=== PATIENT | female | born 1940 | race Caucasian/White ===

== ENCOUNTER 2017-09-19 15:02 | Inpatient (IN) ==
[2017-09-19] MEDS ORDERED: 0.9 % SODIUM CHLORIDE 1,000 ML IV ONE (15:20)
--- NOTE | 2017-09-19 16:06 | XRay Report ---
CLINICAL INFORMATION: Fall. Right knee pain TECHNIQUE: Portable AP and lateral right knee COMPARISON: None. FINDINGS: No right knee fracture. Severe degenerative joint disease. Severe narrowing of the patellofemoral joint. Severe narrowing of the lateral femoral tibial joint space. Moderate narrowing of the medial femoral tibial joint space. No plain film evidence for significant joint effusion. There is mild chondrocalcinosis. No lytic lesion IMPRESSION: 1. Degenerative joint disease 2. No acute abnormality Interpreted and Authenticated by: Tristian Fernández 09/19/17
--- NOTE | 2017-09-19 16:08 | XRay Report ---
INDICATION: Hip and knee pain TECHNIQUE: AP chest x-ray,portable semierect COMPARISON: 05/30/2015, 05/11/2015, 02/04/2015 FINDINGS:Marked cardiomegaly. Findings are unchanged. Pulmonary vascularity is prominent. There is bronchial wall thickening and probable subtle septal lines. Appearance is consistent with congestive heart failure and interstitial pulmonary edema. No focal parenchymal infiltrate. No consolidation. No definite pleural fluid IMPRESSION: 1. Marked cardiomegaly, unchanged 2. Prominent pulmonary vascularity and probable interstitial edema. Appearance is consistent with congestive heart failure Interpreted and Authenticated by: Tristian Fernández 09/19/17
[2017-09-19 16:55] LABS: Basophils # (Auto) 0 K/mcL (0.0-0.3); Basophils % (Auto) 0 % (0.0-2.0); Eosinophils # (Auto) 0 K/mcL (0.0-0.7); Eosinophils % (Auto) 0.1 % (0.0-7.0); Granulocytes % (Auto) 92.7 % (38.0-78.0); Lymphocytes # (Auto) 0.6 K/mcL (1.5-4.8); Mean Cell Volume 93.5 fL (80.0-100.0); Mean Corpuscular Hemoglobin 30.9 pg (26.0-34.0); Monocytes # (Auto) 0.4 K/mcL (0.1-0.9); Monocytes % (Auto) 3.2 % (1.0-12.0); Platelet Count 159 K/mcL (140-440); RBC 4.05 M/mcL (4.00-5.20); Red Cell Distribution Width 12.8 % (11.5-14.5)
[2017-09-19 17:15] LABS: ALT/SGPT 20 U/l (0-40); Albumin 3.6 gm/dL (3.2-5.2); Albumin/Globulin Ratio 1.2 (1.0-2.3); Alkaline Phosphatase 62 U/L (39-117); Blood Urea Nitrogen 69 mg/dl (8-23)
[2017-09-19 17:47] LABS: Appearance,Urine CLEAR; Bacteria,Urine 0 /hpf (0); Bilirubin,Urine NEG (NEG); Color,Urine YELLOW; Glucose,Urine (UA) NEGATIVE (NEG); Leukocyte Esterase,Urine NEG /uL (NEG); Mucus,Urine FEW /hpf (0); Nitrate,Urine NEG (NEG); Protein,Urine NEG (NEG); Specific Gravity,Urine 1.011 (1.000-1.035); Urine Blood 0.03 mg/dL (<0.03); Urine Hyaline Cast 12 /lpf (0-2); Urine RBC 2 /hpf (0-1); Urine Squamous Epithelial Cell < 1 /hpf (0-4); Urine WBC 0 /hpf (0-4); Urobilinogen,Urine NEG (NEG)
--- NOTE | 2017-09-19 18:16 | Emergency Department Note ---
Fall HPI - General Chief Complaint: Fall Stated Complaint: Fall-R hip pain Time Seen by Provider: 09/19/17 15:05 Source: EMS Mode of arrival: EMS - History of Present Illness HPI Narrative: This pleasant 77-year-old female was entering a doctor's office at [facility], this afternoon when she fell. Her had dropped her off from the car and went to park the car. When he returned there were several nurses around her and she was unable to walk. Ambulance was summoned after an x-ray was done there. The x-ray demonstrated a fracture in the femoral neck with mild impaction and probable some rotation as well. She does not remember tripping or being dizzy. She initially told her that she thought she passed out. She did not remember telling him this. She has mild-moderate dementia. - Related Data Home Medications Medication Instructions Recorded Confirmed Furosemide [Lasix] 0 mg PO BID 05/11/15 09/09/17 Simvastatin [Zocor] 5 mg PO HS 05/11/15 09/09/17 Warfarin [Coumadin] 6 mg PO 3XW 05/11/15 09/09/17 Cyanocobalamin (Vitamin B-12) 500 mcg PO DAILY 06/07/15 06/07/15 [Vitamin B-12] Polyethylene Glycol 3350 [Glycolax] 119 gm PO QDAY PRN 06/07/15 09/09/17 Spironolactone [Aldactone] 50 mg PO BID 06/07/15 09/09/17 Warfarin [Coumadin] 4 mg PO Q2-3DAYS 06/07/15 09/09/17 Donepezil [Aricept] 10 mg PO HS 09/09/17 09/09/17 PARoxetine [Paxil] 10 mg PO DAILY 09/09/17 09/09/17 Pramipexole [Mirapex] 0.125 mg PO TID 09/09/17 09/09/17 Previous Rx's Medication Instructions Recorded Amoxicillin/Potassium Clav 875 mg PO Q12H #20 tab 09/09/17 [Augmentin] Promethazine [Phenergan] 12.5 mg PO Q6H PRN #20 tab 09/09/17 Allergies Allergy/AdvReac Type Severity Reaction Status Date / Time Zolpidem [ZOLPIDEM] Allergy Intermediate Unknown Verified 09/09/17 11:40 bacitracin [BACITRACIN] Allergy Mild Rash Verified 09/09/17 11:40 moxifloxacin Allergy Unknown Unknown Verified 09/09/17 11:40 soybean [SOYBEAN] Allergy Unknown Rash Verified 09/09/17 11:40 Sulfa (Sulfonamide AdvReac Unknown URINARY Verified 09/09/17 11:40 Antibiotics) RETENTION [SULFA (SULFONAMIDE ANTIBIOTICS)] Review of Systems Review of Systems: General: Denies fever, chills. CV: Denies chest pain and palpitations. She has a history of chronic A. fib and anticoagulation. Pulmonary: Denies cough. She has chronic shortness of breath and is on oxygen 2 L/min chronically at home most of the time but sometimes is mobile without this. Presumably this has been needed due to her cardiac history that includes CHF, atrial fibrillation. GI: She denies abdominal pain, nausea, vomiting, diarrhea, duct constipation : Denies dysuria and frequency. MSK denies back pain. She has some pain in the right knee. Her right hip is only minimally discomfort when she does not move. Chronically she sits in a chair a lot of the day according to her . Neuro: Denies headaches. She has some weakness now but does not usually have this. She denies dizziness and imbalance. Psych: She admits to chronic anxiety and chronic depression. Endocrine: Admits to some fatigue. She denies hot or cold intolerances. Hematologic: She bleeds easily but is on chronic Coumadin. She bruises easily as well. Fall PMH - Past Medical History Medical history: Reports: asthma, atrial fibrillation (Chronic, on chronic Coumadin.), CHF (Chronic diastolic with exacerbations.), COPD ( denied this however.), diabetes, GERD, renal disease, other (pericarditis 06. Environmental allergies. Dementia (mild-moderate). Chronic anticoagulation.). Denies: CVA, hyperlipidemia, hypertension, thyroid disease, TIA Surgical history ED: Reports: cholecystectomy (Summary 2017.), knee replacement (Left.), tonsillectomy, other (2006 drainage and surgical placement of shunt or other drainage apparatus for pericardial effusion. Skin graft from right proximal thigh to the left frontal scalp.) Psychiatric history: Reports: anxiety, depression - Social History smoking status: Former smoker (Remote, short duration.) Alcohol use: Reports: Rarely (beer) Drug use: Reports: none Physical Exam Limitations: no limitations General appearance: alert, in no apparent distress Head: atraumatic, normocephalic, other (She has a 3 inch circular skin graft patch without hair on the left side of the mid frontal scalp.) Eye: Present: EOMI ENT: mucous membranes moist Neck: Present: trachea midline Respiratory: Present: normal lung sounds bilaterally. Absent: respiratory distress, wheezes, stridor Cardiovascular: Present: irregular rhythm Abdominal: Present: soft. Absent: distention, tenderness, guarding, rebound, rigidity Extremities: Present: tenderness (Quite tender to any movement of the right lower extremity. She is tender some around the right knee. There is are several larger ecchymoses on both lower extremities around the knees and below.) Neurological: Present: alert, other (Seems forgetful about many details that have happened in the not distant past.) Psychiatric: Present: normal affect, normal mood Skin: Present: warm, dry Course Vital Signs Temperature 99.7 F H 09/19/17 15:02 Pulse Rate 76 09/19/17 15:02 Respiratory Rate 16 09/19/17 15:02 Blood Pressure 100/53 09/19/17 15:02 Pulse Oximetry (%) 91 09/19/17 15:02 Temperature 99.7 F H 09/19/17 15:02 Pulse Rate 85 09/19/17 16:19 Respiratory Rate 20 09/19/17 16:19 Blood Pressure 137/60 09/19/17 16:02 Pulse Oximetry (%) 94 09/19/17 16:19 Fall - [facility] Narrative Medical decision making narrative: X-rays from [facility] demonstrate a femoral neck fracture with impaction and rotation. Additional labs done here demonstrated a BUN 69 creatinine 1.4. GFR was 36. Glucose was 115. INR, 2.7. PTT was 44. She required 2 L of oxygen to keep her sats in the mid 90s. 6:10 PM With her fracture and therapeutic INR, reversal and preparation for surgery certainly needed. I spoke with Dr. Banegas who requested hospitalist involvement and hopefully can be prepared for surgical intervention tomorrow. He indicates that she can eat this evening and be n.p.o. after midnight. 6:12 PM I spoke with the hospitalist, Dr. Paz, with recommendation for head CT given her dementia, unwitnessed fall, uncertain cause of the fall, etc. This is now ordered. He requests that the appropriate pathway is forward Dr. Banegas to be the admitting and that he will be the employee relations consultant. - Lab Data Result diagrams: 09/19/17 16:18 09/19/17 16:18 Lab Results 09/19/17 09/19/17 09/19/17 Range/Units 16:18 16:18 16:18 WBC 14.0 H (4.5-11.0) K/mcL RBC 4.05 (4.00-5.20) M/mcL Hgb 12.5 (12.0-15.0) g/dL Hct 37.9 (36.0-48.0) % MCV 93.5 (80.0-100.0) fL MCH 30.9 (26.0-34.0) pg MCHC 33.0 (31.0-36.0) g/dL RDW 12.8 (11.5-14.5) % Plt Count 159 (140-440) K/mcL MPV 7.6 (7.4-10.4) fL Gran % 92.7 H (38.0-78.0) % Lymph % (Auto) 4.0 L (15.5-49.0) % [place] % (Auto) 3.2 (1.0-12.0) % Eos % (Auto) 0.1 (0.0-7.0) % Baso % (Auto) 0 (0.0-2.0) % Gran # 13.0 H (1.8-8.0) K/mcL Lymph # (Auto) 0.6 L (1.5-4.8) K/mcL [place] # (Auto) 0.4 (0.1-0.9) K/mcL Eos # (Auto) 0 (0.0-0.7) K/mcL Baso # (Auto) 0 (0.0-0.3) K/mcL PT 30.0 H (11.9-14.5) sec INR 2.7 H (0.9-1.1) APTT 44 H (20-37) sec Sodium 142 (133-145) mmol/L Potassium 4.8 (3.3-5.1) mmol/L Chloride 101 (96-108) mmol/L Carbon Dioxide 29 (22-30) mmol/L Anion Gap 12.0 (8-16) BUN 69 H (8-23) mg/dl Creatinine 1.4 H (0.6-1.1) mg/dl GFR Calculation 36 Glucose 115 H (70-105) mg/dL Calcium 9.1 (8.6-10.4) mg/dl Total Bilirubin 0.3 (0.0-1.0) mg/dL AST 21 (0-37) U/l ALT 20 (0-40) U/l Alkaline Phosphatase 62 (39-117) U/L Total Protein 6.7 (5.9-8.4) gm/dL Albumin 3.6 (3.2-5.2) gm/dL Globulin 3.1 (2.2-3.7) gm/dL Albumin/Globulin Ratio 1.2 (1.0-2.3) Urine Color Urine Appearance Urine pH (5.0-9.0) Ur Specific [place] (1.000-1.035) Urine Protein (NEG) mg/dL Urine Glucose (UA) (NEG) mg/dL Urine Ketones (NEG) mg/dL Urine Occult Blood (<0.03) mg/dL Urine Nitrate (NEG) Urine Bilirubin (NEG) mg/dL Urine Urobilinogen (NEG) mg/dL Ur Leukocyte Esterase (NEG) /uL Urine RBC (0-1) /hpf Urine WBC (0-4) /hpf Ur Squamous Epith Cells (0-4) /hpf Urine Bacteria (0) /hpf Hyaline Casts (0-2) /lpf Urine Mucus (0) /hpf Ur Culture Indicated? 09/19/17 Range/Units 16:59 WBC (4.5-11.0) K/mcL RBC (4.00-5.20) M/mcL Hgb (12.0-15.0) g/dL Hct (36.0-48.0) % MCV (80.0-100.0) fL MCH (26.0-34.0) pg MCHC (31.0-36.0) g/dL RDW (11.5-14.5) % Plt Count (140-440) K/mcL MPV (7.4-10.4) fL Gran % (38.0-78.0) % Lymph % (Auto) (15.5-49.0) % [place] % (Auto) (1.0-12.0) % Eos % (Auto) (0.0-7.0) % Baso % (Auto) (0.0-2.0) % Gran # (1.8-8.0) K/mcL Lymph # (Auto) (1.5-4.8) K/mcL [place] # (Auto) (0.1-0.9) K/mcL Eos # (Auto) (0.0-0.7) K/mcL Baso # (Auto) (0.0-0.3) K/mcL PT (11.9-14.5) sec INR (0.9-1.1) APTT (20-37) sec Sodium (133-145) mmol/L Potassium (3.3-5.1) mmol/L Chloride (96-108) mmol/L Carbon Dioxide (22-30) mmol/L Anion Gap (8-16) BUN (8-23) mg/dl Creatinine (0.6-1.1) mg/dl GFR Calculation Glucose (70-105) mg/dL Calcium (8.6-10.4) mg/dl Total Bilirubin (0.0-1.0) mg/dL AST (0-37) U/l ALT (0-40) U/l Alkaline Phosphatase (39-117) U/L Total Protein (5.9-8.4) gm/dL Albumin (3.2-5.2) gm/dL Globulin (2.2-3.7) gm/dL Albumin/Globulin Ratio (1.0-2.3) Urine Color Yellow Urine Appearance Clear Urine pH 5.0 (5.0-9.0) Ur Specific [place] 1.011 (1.000-1.035) Urine Protein Neg (NEG) mg/dL Urine Glucose (UA) Negative (NEG) mg/dL Urine Ketones Neg (NEG) mg/dL Urine Occult Blood 0.03 A (<0.03) mg/dL Urine Nitrate Neg (NEG) Urine Bilirubin Neg (NEG) mg/dL Urine Urobilinogen Neg (NEG) mg/dL Ur Leukocyte Esterase Neg (NEG) /uL Urine RBC 2 H (0-1) /hpf Urine WBC 0 (0-4) /hpf Ur Squamous Epith Cells < 1 (0-4) /hpf Urine Bacteria 0 (0) /hpf Hyaline Casts 12 H (0-2) /lpf Urine Mucus Few (0) /hpf Ur Culture Indicated? No Disposition Pt seen by CONVENTIONS RESERVATIONIST/PA only: No Clinical Impression: Chronic anticoagulation, Atrial fibrillation, chronic, Hypoxia Hip fracture, right Qualifiers: Encounter type: initial encounter Fracture type: closed Qualified Code(s): S72.001A - Fracture of unspecified part of neck of right femur, initial encounter for closed fracture Fall Qualifiers: Encounter type: initial encounter Qualified Code(s): W19.XXXA - Unspecified fall, initial encounter Dementia Qualifiers: Dementia type: unspecified type Dementia behavioral disturbance: without behavioral disturbance Qualified Code(s): F03.90 - Unspecified dementia without behavioral disturbance CHF (congestive heart failure) Qualifiers: Congestive heart failure type: diastolic Congestive heart failure chronicity: chronic Qualified Code(s): I50.32 - Chronic diastolic (congestive) heart failure Diabetes mellitus Qualifiers: Diabetes mellitus type: type 2 Diabetes mellitus complication status: without complication Diabetes mellitus shelter insulin use: without shelter use Qualified Code(s): E11.9 - Type 2 diabetes mellitus without complications Disposition: Xfer As Inpt ([facility]) Condition: Fair Referrals: Nina Mello MD [Primary Care Provider] -
--- NOTE | 2017-09-19 18:47 | Cat Scan Report ---
CLINICAL INFORMATION: Fall. Head injury. COMPARISON: 11/12/2010 TECHNIQUE: Axial noncontrast-enhanced images through the brain. FINDINGS: No acute intracranial hemorrhage. No subdural or epidural hematoma. No subarachnoid hemorrhage. No intra-axial hemorrhage. No focal attenuation abnormalities or areas of localized mass effect. No midline shift. Brainstem and cerebellum are negative. Basilar cisterns are normal. No calvarial fracture. There is absence of extracranial soft tissues overlying the high left frontal region. This may be acute injury or chronic. No soft tissue gas or radiopaque foreign body. Skull base is negative. No basilar skull fracture. Paranasal sinuses are negative. IMPRESSION: 1. No acute intracranial abnormality. 2. No calvarial fracture Interpreted and Authenticated by: Tristian Fernández 09/19/17
--- NOTE | 2017-09-19 19:56 | Internal Medicine Consult Note ---
Medical - CN: HPI - Data of Consult Consult date: 09/19/17 Requesting Physician: ady Primary Care Provider: Nina Mello Family Provider: Nina Mello - Consult Narrative Reason for consult: Pre op for hip fracture History of present illness: Ms. Ferderick is a 77 year old Female with h/o dementia, chf, corpulmonale, asthma, ckd, presents to the ER after a fall, The patient was enroute to see her pcp today, her dropped her at the gate and went to park the car, on coming back he noted that the patient was sitting on the floor, with few nurses surrounding the patient. The patient does not remember what exactly happened, but noted her right hip and knee hurt. She was seen by her PCP who noted that she has a right hip fracture and was therefore sent here to the ER for further evluation The patient admits to being short of breath, but beyond that does not report any other acute symptoms, she has pain in the right hip. but denies chest pain, no palpitations, dizziness, no headache, no gi or gu symptoms reported, she had some abdominal pain issues and was recently daignosed with UTI and was prescribed augmentin. The patient has poor ET, MEt around 1-3, The patient Chest x ray shows acute congestive heart failure, her head ct is negative, ua neg, she has leucocytosis on cbc, cxr is neg. The patient has severe pulmonary hypertension, cor pulmonale on last echo 2014 , she has LVH with low normal systolic function. the patient was admitted to ortho for hip revision and medicine consulted for medical optimization Family present at bedside, son and . who gave history and are aware of patients overall poor prognosis CC: All systems: reviewed and no additional remarkable complaints except as stated ( as per hpi) Medical - CN: PMH Medical history: Medical History Congestive heart failure (Acute) Congestive heart failure (CHF) (Acute) Weakness (Acute) Hypoxia (Acute) UTI (urinary tract infection) (Resolved) Chronic kidney disease (CKD), stage III (moderate) (Acute) Morbid obesity (Acute) Atrial fibrillation (Acute) Heart failure, diastolic, with acute decompensation (Acute) Post-op bleeding (Acute) Denture stomatitis (Acute) Nausea (Acute) Bladder infection, acute (Acute) Hip fracture, right (Acute) Fall (Acute) Chronic anticoagulation (Acute) Dementia (Acute) Atrial fibrillation, chronic (Acute) Diabetes mellitus (Acute) Surgical history: pericadial window Right tkr Family history: reviewed and not pertinent Social history: lives with , denies smoking, no etoh, no recreational drug use. Medical - CN: Meds Home Medications Medication Instructions Recorded Confirmed Type Furosemide [Lasix] 0 mg PO BID 05/11/15 09/09/17 History Simvastatin [Zocor] 5 mg PO HS 05/11/15 09/09/17 History Warfarin [Coumadin] 6 mg PO 3XW 05/11/15 09/09/17 History Cyanocobalamin (Vitamin B-12) 500 mcg PO DAILY 06/07/15 06/07/15 History [Vitamin B-12] Polyethylene Glycol 3350 [Glycolax] 119 gm PO QDAY PRN 06/07/15 09/09/17 History Spironolactone [Aldactone] 50 mg PO BID 06/07/15 09/09/17 History Warfarin [Coumadin] 4 mg PO Q2-3DAYS 06/07/15 09/09/17 History Amoxicillin/Potassium Clav 875 mg PO Q12H #20 tab 09/09/17 Rx [Augmentin] Donepezil [Aricept] 10 mg PO HS 09/09/17 09/09/17 History PARoxetine [Paxil] 10 mg PO DAILY 09/09/17 09/09/17 History Pramipexole [Mirapex] 0.125 mg PO TID 09/09/17 09/09/17 History Promethazine [Phenergan] 12.5 mg PO Q6H PRN #20 tab 09/09/17 Rx Allergies Allergy/AdvReac Type Severity Reaction Status Date / Time Zolpidem [ZOLPIDEM] Allergy Intermediate Unknown Verified 09/09/17 11:40 bacitracin [BACITRACIN] Allergy Mild Rash Verified 09/09/17 11:40 moxifloxacin Allergy Unknown Unknown Verified 09/09/17 11:40 soybean [SOYBEAN] Allergy Unknown Rash Verified 09/09/17 11:40 Sulfa (Sulfonamide AdvReac Unknown URINARY Verified 09/09/17 11:40 Antibiotics) RETENTION [SULFA (SULFONAMIDE ANTIBIOTICS)] Medical - CN: Exam - Constitutional Vitals: Temp Pulse Resp BP Pulse Ox 99.7 F H 85 20 137/60 94 09/19/17 15:02 09/19/17 16:19 09/19/17 16:19 09/19/17 16:02 09/19/17 16:19 Exam: GENERAL: The patient is a well-developed, well-nourished in no apparent distress. Is alert and oriented x2. VITAL SIGNS: Reviewed and as noted elsewhere. HEENT: Head is normocephalic and atraumatic. Extraocular muscles are intact. Pupils are equal, round, and reactive to light. Nares appeared normal. Mouth appears any without lesions. Mucous membranes are moist. NECK: Normal to inspection, Supple, No lymphadenopathy or thyromegaly. LUNGS: Air entry equal on both sides, joi exp wheezing, prolonged exp phase, bilbasilar crackles noted. HEART: Regular rate and rhythm irregular, S1 and S2 heard, no Gallop, S3 or Rub Noted, systolic murmur lsbb, JVP mildly raised ABDOMEN: Soft, nontender, and nondistended. Positive bowel sounds. No hepatosplenomegaly was noted. EXTREMITIES: No cyanosis, clubbing, rash, lesion, edema + . NEUROLOGIC: Cranial nerves II through XII are grossly intact. Motor and Sensory System Grossly Intact PSYCHIATRIC: Normal affect, Normal Mood. Appropriate Behavior. SKIN: No ulceration or wounds noted, No jaundice, No rash noted. Medical - CN: Result - Labs CBC & Chem 7: 09/19/17 16:18 09/19/17 16:18 Labs: Short CBC 09/19/17 Range/Units 16:18 WBC 14.0 H (4.5-11.0) K/mcL Hgb 12.5 (12.0-15.0) g/dL Hct 37.9 (36.0-48.0) % Plt Count 159 (140-440) K/mcL BMP 09/19/17 16:18 Sodium 142 Potassium 4.8 Chloride 101 Carbon Dioxide 29 BUN 69 H Creatinine 1.4 H Glucose 115 H Calcium 9.1 Liver Function 09/19/17 Range/Units 16:18 Total Bilirubin 0.3 (0.0-1.0) mg/dL AST 21 (0-37) U/l ALT 20 (0-40) U/l Alkaline Phosphatase 62 (39-117) U/L Albumin 3.6 (3.2-5.2) gm/dL Urine 09/19/17 Range/Units 16:59 Urine Color Yellow Urine Appearance Clear Urine pH 5.0 (5.0-9.0) Ur Specific [place] 1.011 (1.000-1.035) Urine Protein Neg (NEG) mg/dL Urine Glucose (UA) Negative (NEG) mg/dL Medical - CN: A/P - Narrative A/P Narrative: A/P Hip fracture: Planned surgery by ortho, who are the primary on this patient. Pre op evaluation. acute chf Pulmonary hypertension, severe cor pulmonale HTN HLD Acute Asthma exacerbation Dementia chronic kidney disease. Plan The patient has very high risk for mortality in the ariana op period: the patient presently in acute decompensated heart failure, she has crackles on exam as well x ray suggestive of chf, she also has severe pulm htn (60mmhg pa pressure) and cor pulmonale as per her last echo in 2014, cad as per her ekg, poor Effort tolerance, dementia and advanced age. The patient is also presently in Acute asthma exacerbation as she has joi wheezing on exam. The patient will need to be optimized as much as possible before exam. I have discussed this with anesthesia, patients family that medical optimization by treating chf, and asthma would be important given her underlying severe cardio pulmonary disease. The patient will remain a high risk patient even after optimization. Family and patient aware of same. hopefully we would be able to get her fluid status and asthma under better control by AM IV lasix 80mg once, pt has albert in place, hopefully this will help clear the pulmonary congestion IV solumedrol and duonebs for Asthma exacerbation, add zithromax IV vitamin K for reversal of INR< I would like to avoid excess volume of ffp if possible. continue statin pramipaxole, hold other meds for now, resume in AM after surgery DVT on coumadin with therapeutic INR, to resume same after surgery. Full code for now NPO diet status. Thanks for allowing me to particpate in the care of this patient. If you have any questions do not hesitate to contact me.
[2017-09-19] MEDS ORDERED: NALOXONE HCL 0.4 MG/ML VIAL IV PRN (20:01)
[2017-09-19] MEDS ORDERED: FUROSEMIDE 40 MG/4 ML VIAL IV ONE (20:01)
[2017-09-19] MEDS ORDERED: PHYTONADIONE 10 MG/ML AMPUL SQ ONE (20:01)
[2017-09-19] MEDS ORDERED: ACETAMINOPHEN 325 MG TABLET PO PRN (20:01)
[2017-09-19] MEDS ORDERED: ONDANSETRON 4 MG/2 ML VIAL IV PRN (20:01)
[2017-09-19] MEDS ORDERED: PHYTONADIONE 10 MG in 0.9 % SODIUM CHLORIDE 50 ML IV ONE (20:55)
[2017-09-19] MEDS ORDERED: ACETAMINOPHEN 1,000 MG/100 ML BOTTLE IV ONE (21:04)
[2017-09-19] MEDS: PRAMIPEXOLE 0.25 MG TABLET PO SCH (21:46)
[2017-09-19] MEDS: SIMVASTATIN 10 MG TABLET PO SCH (21:47)
[2017-09-19] MEDS: FAMOTIDINE/PF 20 MG/2 ML VIAL IV SCH (21:47)
[2017-09-19] MEDS: methylPREDNISolone SOD SUCC 125 MG/2 ML VIAL IV SCH ×2 (21:47→21:50)
[2017-09-19] MEDS: IPRATROPIUM/ALBUTEROL 3 ML AMPUL.NEB NEB SCH (22:36)
[2017-09-19] MEDS: AZITHROMYCIN 500 MG in DEXTROSE 5% IN WATER 250 ML IV SCH (22:51)
[2017-09-20] MEDS: IPRATROPIUM/ALBUTEROL 3 ML AMPUL.NEB NEB SCH ×6 (03:00→22:47)
[2017-09-20] MEDS: methylPREDNISolone SOD SUCC 125 MG/2 ML VIAL IV SCH ×4 (05:20→23:01)
[2017-09-20 05:46] LABS: Basophils # (Auto) 0 K/mcL (0.0-0.3); Basophils % (Auto) 0 % (0.0-2.0); Eosinophils # (Auto) 0.1 K/mcL (0.0-0.7); Eosinophils % (Auto) 0.7 % (0.0-7.0); Granulocytes % (Auto) 96.4 % (38.0-78.0); Lymphocytes # (Auto) 0.3 K/mcL (1.5-4.8); Lymphocytes % (Auto) 1.5 % (15.5-49.0); Mean Cell Volume 94.2 fL (80.0-100.0); Mean Corpuscular HGB Conc 32.9 g/dL (31.0-36.0); Monocytes # (Auto) 0.2 K/mcL (0.1-0.9); Monocytes % (Auto) 1.4 % (1.0-12.0); Platelet Count 163 K/mcL (140-440); RBC 4.19 M/mcL (4.00-5.20)
[2017-09-20 06:50] LABS: ALT/SGPT 355 U/l (0-40); Albumin 3.6 gm/dL (3.2-5.2); Albumin/Globulin Ratio 1.1 (1.0-2.3); Alkaline Phosphatase 122 U/L (39-117); Bilirubin,Direct < 0.2 mg/dL (0.0-0.3); Blood Urea Nitrogen 71 mg/dl (8-23); Gamma Glutamyl Transpeptidase 116 U/L (5-36); Magnesium 2.4 mg/dL (1.6-2.5); Uric Acid 6.6 mg/dL (2.5-8.0)
[2017-09-20] MEDS ORDERED: VANCOMYCIN PER PHARMACY IV SCH ×2 (07:16→21:48)
[2017-09-20] MEDS ORDERED: CEFEPIME 1 GM VIAL IV SCH (07:30)
--- NOTE | 2017-09-20 07:32 | XRay Report ---
INDICATION: Congestive heart failure TECHNIQUE: AP chest x-ray,portable COMPARISON: Chest x-rays dated 09/19/2017, 05/30/2015, 05/11/2015, 02/04/2015 FINDINGS:Persistent cardiomegaly, unchanged. Vascularity remains prominent. There may be mild interstitial edema. This is unchanged. Findings suspicious for left midlung infiltrate. This may be a focus of pneumonia. Clinical correlation follow-up radiograph recommended IMPRESSION: 1. Persistent cardiomegaly and probable mild interstitial edema 2. Subtle focal density in the left midlung suspicious for pneumonia Interpreted and Authenticated by: Tristian Fernández 09/20/17
[2017-09-20] MEDS ORDERED: VANCOMYCIN 1,500 MG in 0.9 % SODIUM CHLORIDE 500 ML IV ONE (08:00)
--- NOTE | 2017-09-20 08:47 | Ultrasound Report ---
CLINICAL INFORMATION: Elevated liver function tests. Recent cholecystectomy TECHNIQUE: Grayscale and color flow Doppler spectral imaging COMPARISON: None. FINDINGS: Previous cholecystectomy. Common bile duct measures 5.8 mm. No dilated intrahepatic bile duct. No focal fluid collection or mass in the gallbladder fossa. Negative liver. No focal intrahepatic abnormalities. Liver parenchyma is heterogeneous. No discrete mass. No ascites. Normal hepatopedal portal venous flow. Visualized portions of the pancreas are negative. IMPRESSION: 1. Mildly heterogeneous hepatic parenchyma. No focal mass. 2. Previous cholecystectomy. No significant bile duct dilatation Interpreted and Authenticated by: Tristian Fernández 09/20/17
[2017-09-20] MEDS: PRAMIPEXOLE 0.25 MG TABLET PO SCH ×3 (10:35→21:07)
--- NOTE | 2017-09-20 13:20 | Internal Med Progress Note ---
Medical - PN: Subj Patient information: Note initiated : 09/20/17 at 1:16 pm Service Date, if different from initiated Date: [] Patient: Tana Frederick a 77 y/o F admitted on 09/19/17 for Fall-R hip pain. Chief Complaint: [] Interval history: Ms. Frederick is a 77 year old Female with h/o dementia, chf, cor pulmonale, asthma, ckd, presents to the ER after a fall, The patient was Enroute to see her pcp today, her dropped her at the gate and went to park the car, on coming back he noted that the patient was sitting on the floor, with few nurses surrounding the patient. The patient does not remember what exactly happened, but noted her right hip and knee hurt. She was seen by her PCP who noted that she has a right hip fracture and was therefore sent here to the ER for further evaluation The patient admits to being short of breath, but beyond that does not report any other acute symptoms, she has pain in the right hip. but denies chest pain, no palpitations, dizziness, no headache, no gi or gu symptoms reported, she had some abdominal pain issues and was recently diagnosed with UTI and was prescribed Augmentin. The patient has poor ET, MEt around 1-3, The patient Chest x ray shows acute congestive heart failure, her head ct is negative, ua neg, she has leucocytosis on cbc, cxr is neg. The patient has severe pulmonary hypertension, cor pulmonale on last echo 2014 , she has LVH with low normal systolic function. the patient was admitted to [facility] for hip revision and medicine consulted for medical optimization Family present at bedside, son and . who gave history and are aware of patients overall poor prognosis September 20 Patient seen examined, no acute overnight events, pt doing well, no acute concerns CXR still shows congestion INR is 2.0 patient denies chest pain, or other complaints Confusion over whether the patient can have surgery here, due to her high risk status. it seems that she might end up getting the surgery here. The patients WBC count is up, procalcitonin is elevated, ? pneumonia, x ray only notes congestion, but given her age, will cover with antibiotics. The patient is very high risk for surgery, anesthesia aware, family aware. LFT uptrending, usg liver ordered. Pertinent ROS: Denies headache, dizziness Denies chest pain, palpitations Denies cough or shortness of breath Denies abdominal pain, nausea or vomiting. - Constitutional Vitals: Vital Signs Temp Pulse Resp BP Pulse Ox 98.3 F 93 H 22 122/95 100 09/20/17 11:45 09/20/17 11:11 09/20/17 11:45 09/20/17 11:45 09/20/17 11:45 Period Temp Pulse Resp BP Sys/Roca Pulse Ox Last 24 Hr 97.4 F-99.7 F 72-95 15-22 100-144/53-95 90-100 Intake and Output 09/19/17 09/20/17 09/20/17 21:59 05:59 13:59 Intake Total 1000 / 1000 Output Total 300 / 300 625 / 625 Balance 700 / 700 -625 / -625 Weight 219 lb 6.4 oz 219 lb 6.4 oz Patient Weight 09/21/17 05:59 Weight 219 lb 6.4 oz Intake & Output: Intake & Output 09/19/17 09/20/17 09/20/17 21:59 05:59 13:59 Intake Total 1000 / 1000 Output Total 300 / 300 625 / 625 Balance 700 / 700 -625 / -625 Weight 219 lb 6.4 oz 219 lb 6.4 oz Intake: IV 1000 / 1000 Sodium Chloride 0.9% 1,000 ml @ 1000 / 1000 Wide Open IV BOLUS ONE Rx#: [id number] Output: Urine Catheter Amount 625 / 625 Void Amount 300 / 300 Uretheral (Albert) 300 / 300 Exam: Constitutional; Afebrile, cooperative, alert, not in distress. Eyes- No icterus, , No periorbital swelling Ears- Ext ear normal, hearing normal to conversation. Neck- Midline trachea, supple Respiratory system: Air Entry equal on both sides,very mild basilar crackles today much better than yesterday, or wheezing, no rhonchi. CVS- Rate rhythm regular, S1,S2 heard, no gallop, no rub. Abdomen- Soft nontender abdomen, no organomegaly, no tenderness, no guarding or rigidity, OPERATER- AOOx2, moving all extremities, no gross focal deficit noted. (right hip immobile due to pain) Medical - PN: Obj Da - Labs CBC & Chem 7: 09/20/17 03:33 09/20/17 03:33 Labs: Abnormal Lab Results 09/20/17 09/20/17 09/20/17 03:33 03:33 03:33 WBC 17.5 H Gran % 96.4 H Lymph % (Auto) 1.5 L Gran # 16.9 H Lymph # (Auto) 0.3 L PT 23.7 H INR 2.0 H APTT BUN 71 H Creatinine 1.8 H Glucose 165 H Phosphorus 6.6 H* GGT 116 H AST 458 H ALT 355 H Alkaline Phosphatase 122 H Lactate Dehydrogenase 474 H NT-Pro-B Natriuret Pep Urine Occult Blood Urine RBC Hyaline Casts 09/19/17 09/19/17 09/19/17 16:59 16:18 16:18 WBC Gran % Lymph % (Auto) Gran # Lymph # (Auto) PT INR APTT BUN 69 H Creatinine 1.4 H Glucose 115 H Phosphorus GGT AST ALT Alkaline Phosphatase Lactate Dehydrogenase NT-Pro-B Natriuret Pep 1413.0 H Urine Occult Blood 0.03 A Urine RBC 2 H Hyaline Casts 12 H 09/19/17 09/19/17 16:18 16:18 WBC 14.0 H Gran % 92.7 H Lymph % (Auto) 4.0 L Gran # 13.0 H Lymph # (Auto) 0.6 L PT 30.0 H INR 2.7 H APTT 44 H BUN Creatinine Glucose Phosphorus GGT AST ALT Alkaline Phosphatase Lactate Dehydrogenase NT-Pro-B Natriuret Pep Urine Occult Blood Urine RBC Hyaline Casts Meds: Medications Acetaminophen (Tylenol) 650 mg PO Q6HP PRN PRN Reason: PAIN/FEVER > 101 Albuterol/Ipratropium (Duoneb) 3 ml NEB Q4HRT [facility] Last Admin: 09/20/17 11:08 Dose: 3 ml Cefepime HCl (Maxipime) 1 gm IV DAILY [facility] Last Admin: 09/20/17 10:34 Dose: 1 gm Famotidine (Pepcid) 20 mg IV HS [facility] Last Admin: 09/19/17 21:47 Dose: 20 mg Azithromycin 500 mg/ Dextrose 250 mls @ 250 mls/hr IV DAILY [facility] Stop: 09/21/17 09:59 Last Admin: 09/19/17 22:51 Dose: 250 mls/hr Methylprednisolone Sodium Succinate (Solu-Medrol) 62.5 mg IV Q8 [facility] Last Admin: 09/20/17 05:20 Dose: 62.5 mg Morphine Sulfate (Morphine) 2 - 4 mg IV Q2HP PRN PRN Reason: Pain Last Admin: 09/19/17 21:52 Dose: 2 mg Naloxone HCl (Narcan) 0.1 mg IV Q2MIN PRN PRN Reason: Opiate Reversal Ondansetron HCl (Zofran) 4 mg IV Q4HP PRN PRN Reason: Nausea And Vomiting Pramipexole Dihydrochloride (Mirapex) 0.125 mg PO TID [facility] Last Admin: 09/20/17 10:35 Dose: 0.125 mg Simvastatin (Zocor) 5 mg PO HS [facility] Last Admin: 09/19/17 21:47 Dose: Not Given Vancomycin HCl (Vancomycin Per Pharmacy) 1 order IV UD [facility] Medical - PN: A/P - Time Spent With Patient Total time spent is greater than 50% in coordination of care (as documented) at patient's floor/unit and/or counseling patient: - Narrative A/P Narrative: A/P Hip fracture: Planned surgery by ortho, who are the primary on this patient. I am not sure if he has spoken to the family or the patient yet. I have not see any note in the chart to that regard. Pre op evaluation. congestive Heart failure Pulmonary hypertension, severe cor pulmonale HTN HLD Acute Asthma exacerbation Dementia acute on chronic kidney disease. Abnl LFT Plan The patient remains very high risk for mortality for surgery, there is some confusion that the patient needs to be at a higher center for cardiac anesthesiologist or a surgeon more willing to perform surgery ? or if it can be done here. From the medical stand point, given the emergent need for hip surgery, the patient is as stable as she can be possibly be for the near term. Obviously she would not be undergoing the procedure had this been a elective surgery, but given her circumstances, I feel that if the surgeon, anesthesiologist and the patients family can decide if they are willing accept the risk of surgery During my discussions with the family yesterday, and this AM I have clearly outlined the high risks involved. Its up to the surgeon to decide if he is willing to accept the risks for the surgery after consultation with anesthesia and family. The patient did not have much response to lasix overnight, x ray is still read is congestion, pt has mildly elevated procalcitonin, not sure if the findings are possible mild PNA, cecy in light of leucocytosis, clinically pt does not endorse any clear symptoms of pna, none the less, will get blood cultures and start on antibiotics to cover Most of her risk factors are non modifiable CKD, CHF, severe pulmonary hypertension and cor pulmonale, ASthma (now moving air much better), and her advanced age., From a medical stand point, at this point I see no reason for transfer to a higher center, unless the family wishes for this, should the surgeon wish for transfer I will be happy to facilitate the transfer to which ever institution he is able to find an accepting surgeon. The patient will need perioperative Duonebs, she is already on steroids for asthma exacerbations, her cardio resp status needs to be closely monitored. monitor renal function and urine output closely, will get renal usg if creat trends up, albert in place Patients abnl lft likely passive congestion vs related to recent use of antibiotics (augmentin), usg did not show hepatomegaly or congestion, which makes me think that this is more related to patients recent use of augmentin. Monitor for now. Hypercoagulation on coumadin: INR is 2.0 today, will repeat labs again, ffp use ok to reverse anticoagulation, will monitor resp status closely post op. continue statin pramipaxole, hold other meds for now, resume in AM after surgery Hold nephrotoxic meds, avoid hypotensive episodes during surgery. DVT on coumadin with therapeutic INR, to resume same after surgery. Full code for now NPO diet status. Thanks for allowing me to participate in the care of this patient. If you have any questions do not hesitate to contact me. Medical - PN: Qual - VTE Deep Vein Thrombosis/Pulmonary Embolism Present on Admission: No
[2017-09-20] MEDS: AZITHROMYCIN 500 MG in DEXTROSE 5% IN WATER 250 ML IV SCH (14:00)
[2017-09-20] MEDS ORDERED: ETOMIDATE 20 MG/10 ML VIAL IV ONE (15:45)
[2017-09-20] MEDS ORDERED: SUCCINYLCHOLINE 20 MG/ML ML IV ONE (15:45)
[2017-09-20] MEDS ORDERED: KETAMINE 100 MG/ML ML IV ONE (15:45)
[2017-09-20] MEDS ORDERED: TRANEXAMIC ACID 1,000 MG/10 ML VIAL IV ONE (15:45)
[2017-09-20] MEDS ORDERED: fentaNYL 250 MCG/5 ML VIAL IV ONE (15:45)
[2017-09-20] MEDS ORDERED: LIDOCAINE HCL/PF 100 MG/5 ML SYRINGE IV ONE (15:45)
[2017-09-20] MEDS ORDERED: ceFAZolin 1 GM VIAL ONE (15:52)
[2017-09-20] MEDS ORDERED: 0.9 % SODIUM CHLORIDE 10 ML SYRINGE IV PRN ×2 (17:06→21:48)
[2017-09-20] MEDS: 0.9 % SODIUM CHLORIDE 250 ML IV SCH ×4 (17:25→21:50)
--- NOTE | 2017-09-20 17:34 | Brief Operative Note ---
Date of procedure: 09/20/17 Pre-op diagnosis: Right displaced midcervical femoral neck fracture Post-op diagnosis: same Procedure: Right hip hemiarthroplasty Grafts/Implants: Yes (Depuy summit 5 femoral stem, +5 neck, 46 head) Anesthesia: GETA Findings: femoral neck fracture Complications: none Surgeon: Valeriano Banegas Director Emergency Department: [facility] Wilson Estimated blood loss (cc): 200 Specimens Removed/Pathology: none sent Condition: stable Disposition: PACU
[2017-09-20] MEDS ORDERED: HEPARIN/NS 500 ML IV ONE (18:30)
--- NOTE | 2017-09-20 18:40 | XRay Report ---
INDICATION: Status post intubation and right central venous catheter placement TECHNIQUE: AP chest x-ray,portable supine COMPARISON: 09/20/2017, 09/19/2017, 06/07/2015 FINDINGS:Status post intubation. Endotracheal tube tip is 4 cm above the zahida. There is a right central venous catheter with its tip in the superior vena cava. No detectable pneumothorax on the supine radiograph. There is persistent cardiomegaly. Bilateral parenchymal infiltrates consistent with interstitial edema. Previous examination demonstrated a more focal infiltrate in the left midlung. This is apparent on present study. Continued follow-up recommended. IMPRESSION: 1. Endotracheal tube and central venous catheter in appropriate positions 2. Cardiomegaly and increasing interstitial infiltrates consistent with pulmonary edema Interpreted and Authenticated by: Tristian Fernández 09/20/17
[2017-09-20] MEDS ORDERED: LORazepam 2 MG/ML VIAL IV PRN ×2 (18:41→18:50)
[2017-09-20] MEDS ORDERED: 0.9 % SODIUM CHLORIDE 250 ML IV SCH ×2 (18:45→21:48)
[2017-09-20] MEDS ORDERED: PROPOFOL 1,000 MG in PREMIX 1 BAG IV SCH ×2 (18:45→21:48)
[2017-09-20] MEDS ORDERED: fentaNYL 2,500 MCG in 0.9 % SODIUM CHLORIDE 200 ML IV SCH (18:45)
[2017-09-20] MEDS ORDERED: NOREPINEPHRINE BITARTRATE 16 MG in 0.9 % SODIUM CHLORIDE 234 ML IV SCH (18:45)
[2017-09-20] MEDS ORDERED: LORazepam 2 MG/ML VIAL ONE (18:56)
[2017-09-20] MEDS ORDERED: fentaNYL 100 MCG/2 ML VIAL IV ONE ×3 (18:58→19:02)
[2017-09-20] MEDS ORDERED: FUROSEMIDE 100 MG/10 ML VIAL IV ONE ×2 (19:33→20:50)
[2017-09-20] MEDS ORDERED: metroNIDAZOLE 500 MG/100 ML BAG IV SCH (19:45)
[2017-09-20] MEDS ORDERED: NOREPINEPHRINE BITARTRATE 4 MG/4 ML AMPUL IV ONE ×2 (19:47→19:48)
[2017-09-20] MEDS: SIMVASTATIN 10 MG TABLET PO SCH (21:07)
[2017-09-20] MEDS: FAMOTIDINE/PF 20 MG/2 ML VIAL IV SCH (21:10)
[2017-09-20] MEDS ORDERED: PROPOFOL 100 ML IV ONE (21:22)
[2017-09-20] MEDS ORDERED: ONDANSETRON 4 MG/2 ML VIAL IV PRN (21:48)
[2017-09-20] MEDS ORDERED: ACETAMINOPHEN 325 MG TABLET PO PRN (21:48)
[2017-09-20] MEDS ORDERED: NALOXONE HCL 0.4 MG/ML VIAL IV PRN (21:48)
[2017-09-20] MEDS: 0.9 % SODIUM CHLORIDE 10 ML SYRINGE IV SCH (21:53)
[2017-09-20] MEDS: METOPROLOL TARTRATE 5 MG/5 ML VIAL IV SCH ×4 (21:53→21:56)
[2017-09-20] MEDS ORDERED: 0.9 % SODIUM CHLORIDE 10 ML SYRINGE IV SCH (22:00)
[2017-09-20] MEDS ORDERED: IPRATROPIUM/ALBUTEROL 3 ML AMPUL.NEB NEB ONE (22:53)
[2017-09-20] MEDS ORDERED: methylPREDNISolone SOD SUCC 125 MG/2 ML VIAL ONE (23:05)
[2017-09-21] MEDS: IPRATROPIUM/ALBUTEROL 3 ML AMPUL.NEB NEB SCH ×6 (03:17→23:30)
[2017-09-21] MEDS ORDERED: IPRATROPIUM/ALBUTEROL 3 ML AMPUL.NEB NEB ONE ×2 (03:22→07:03)
[2017-09-21] MEDS ORDERED: metroNIDAZOLE 500 MG/100 ML BAG IV ONE (03:44)
[2017-09-21] MEDS: metroNIDAZOLE 500 MG/100 ML BAG IV SCH ×3 (03:45→21:46)
[2017-09-21 04:48] LABS: Basophils # (Auto) 0 K/mcL (0.0-0.3); Basophils % (Auto) 0 % (0.0-2.0); Eosinophils # (Auto) 0 K/mcL (0.0-0.7); Eosinophils % (Auto) 0 % (0.0-7.0); Granulocytes % (Auto) 92.8 % (38.0-78.0); Lymphocytes # (Auto) 0.5 K/mcL (1.5-4.8); Lymphocytes % (Auto) 4.1 % (15.5-49.0); Mean Cell Volume 92.9 fL (80.0-100.0); Mean Corpuscular HGB Conc 33.2 g/dL (31.0-36.0); Mean Corpuscular Hemoglobin 30.9 pg (26.0-34.0); Monocytes # (Auto) 0.4 K/mcL (0.1-0.9); Monocytes % (Auto) 3.1 % (1.0-12.0); Platelet Count 181 K/mcL (140-440); RBC 3.51 M/mcL (4.00-5.20)
[2017-09-21 05:06] LABS: ALT/SGPT 164 U/l (0-40); Albumin 3.3 gm/dL (3.2-5.2); Albumin/Globulin Ratio 1.3 (1.0-2.3); Alkaline Phosphatase 91 U/L (39-117); Bilirubin,Direct < 0.2 mg/dL (0.0-0.3); Blood Urea Nitrogen 73 mg/dl (8-23); Gamma Glutamyl Transpeptidase 78 U/L (5-36); Magnesium 2.2 mg/dL (1.6-2.5); Uric Acid 7.6 mg/dL (2.5-8.0)
[2017-09-21] MEDS: 0.9 % SODIUM CHLORIDE 10 ML SYRINGE IV SCH ×3 (08:23→21:46)
[2017-09-21] MEDS: methylPREDNISolone SOD SUCC 125 MG/2 ML VIAL IV SCH ×3 (08:23→21:45)
[2017-09-21] MEDS ORDERED: ACETAMINOPHEN 1,000 MG/100 ML BOTTLE IV ONE ×2 (08:26→15:00)
[2017-09-21] MEDS: LORazepam 2 MG/ML VIAL IV PRN ×2 (08:45→11:20)
[2017-09-21] MEDS ORDERED: VANCOMYCIN 1,500 MG in 0.9 % SODIUM CHLORIDE 500 ML IV ONE (09:00)
[2017-09-21] MEDS ORDERED: AZITHROMYCIN 500 MG in DEXTROSE 5% IN WATER 250 ML IV SCH (09:00)
[2017-09-21] MEDS: PRAMIPEXOLE 0.25 MG TABLET PO SCH ×3 (09:08→20:58)
--- NOTE | 2017-09-21 09:11 | XRay Report ---
CLINICAL INFORMATION: Postsurgical follow-up TECHNIQUE: AP pelvis and hips. AP and lateral right hip COMPARISON: Preoperative evaluation dated 09/19/2017 FINDINGS: Status post right hip replacement. Alignment is anatomic. There is postsurgical soft tissue gas. There are skin amelie. Pelvis is negative. No fracture. No lytic lesion. IMPRESSION: Status post right hip replacement. Interpreted and Authenticated by: Tristian Fernández 09/21/17
--- NOTE | 2017-09-21 09:14 | XRay Report ---
INDICATION: Congestive heart failure TECHNIQUE: AP chest x-ray,semiupright portable COMPARISON: 09/20/2017, 09/19/2017, 06/07/2015 FINDINGS:No change in endotracheal tube or right central venous catheter position. Persistent cardiomegaly. Lungs appear somewhat improved consistent with decreased pulmonary edema. No new parenchymal infiltrates. No new abnormalities IMPRESSION: 1. No change in endotracheal tube or right central venous catheter position 2. Persistent cardiomegaly. Mildly improved pulmonary edema Interpreted and Authenticated by: Tristian Fernández 09/21/17
[2017-09-21] MEDS: ENOXAPARIN 40 MG/0.4 ML SYRINGE SQ SCH (09:37)
[2017-09-21] MEDS: NOREPINEPHRINE BITARTRATE 16 MG in 0.9 % SODIUM CHLORIDE 234 ML IV SCH (09:38)
[2017-09-21] MEDS: CEFEPIME 1 GM VIAL IV SCH (09:38)
[2017-09-21] MEDS ORDERED: FLU VACC QS2017-18 36MOS UP/PF 60 MCG/0.5 ML SYRINGE IM ONE (10:00)
[2017-09-21] MEDS: fentaNYL 2,500 MCG in 0.9 % SODIUM CHLORIDE 200 ML IV SCH (10:03)
--- NOTE | 2017-09-21 10:09 | Internal Med Progress Note ---
Medical - PN: Subj Patient information: Note initiated : 09/21/17 at 10:06 am Service Date, if different from initiated Date: [] Patient: Tana Frederick a 77 y/o F admitted on 09/19/17 for Fall-R hip pain. Chief Complaint: [] Interval history: Ms. Frederick is a 77 year old Female with h/o dementia, chf, cor pulmonale, asthma, ckd, presents to the ER after a fall, The patient was Enroute to see her pcp today, her dropped her at the gate and went to park the car, on coming back he noted that the patient was sitting on the floor, with few nurses surrounding the patient. The patient does not remember what exactly happened, but noted her right hip and knee hurt. She was seen by her PCP who noted that she has a right hip fracture and was therefore sent here to the ER for further evaluation The patient admits to being short of breath, but beyond that does not report any other acute symptoms, she has pain in the right hip. but denies chest pain, no palpitations, dizziness, no headache, no gi or gu symptoms reported, she had some abdominal pain issues and was recently diagnosed with UTI and was prescribed Augmentin. The patient has poor ET, MEt around 1-3, The patient Chest x ray shows acute congestive heart failure, her head ct is negative, ua neg, she has leucocytosis on cbc, cxr is neg. The patient has severe pulmonary hypertension, cor pulmonale on last echo 2014 , she has LVH with low normal systolic function. the patient was admitted to [facility] for hip revision and medicine consulted for medical optimization Family present at bedside, son and . who gave history and are aware of patients overall poor prognosis September 20 Patient seen examined, no acute overnight events, pt doing well, no acute concerns CXR still shows congestion INR is 2.0 patient denies chest pain, or other complaints Confusion over whether the patient can have surgery here, due to her high risk status. it seems that she might end up getting the surgery here. The patients WBC count is up, procalcitonin is elevated, ? pneumonia, x ray only notes congestion, but given her age, will cover with antibiotics. The patient is very high risk for surgery, anesthesia aware, family aware. LFT uptrending, usg liver ordered. patient seen examined, post op on the vent overnight needing levophed to keep her bp up, blood culture is gpc in one bottle only (contaminant) X ray chest this AM is stable, no new infiltrates she did tolerate breathing trial well this AM with TV of 375-450, and stable ABG 7.38/60/140 of 50% fio2, peep 5 The patient is intermittently anxious and needs some ativan to help, but mental status otherwise is good, she is able to follow commands and be easily redirected so far Pertinent ROS: unable, on vent Additional PMFSH (Level 3 Only): Medical History Congestive heart failure (Acute) Congestive heart failure (CHF) (Acute) Weakness (Acute) Hypoxia (Acute) UTI (urinary tract infection) (Resolved) Chronic kidney disease (CKD), stage III (moderate) (Acute) Morbid obesity (Acute) Atrial fibrillation (Acute) Heart failure, diastolic, with acute decompensation (Acute) Post-op bleeding (Acute) Denture stomatitis (Acute) Nausea (Acute) Bladder infection, acute (Acute) Hip fracture, right (Acute) Fall (Acute) Chronic anticoagulation (Acute) Dementia (Acute) Atrial fibrillation, chronic (Acute) Diabetes mellitus (Acute) - Constitutional Vitals: Vital Signs Temp Pulse Resp BP Pulse Ox 99.3 F H 92 H 13 97/57 97 09/21/17 08:39 09/21/17 09:59 09/21/17 09:13 09/21/17 07:08 09/21/17 09:59 Period Temp Pulse Resp BP Sys/Roca Pulse Ox Last 24 Hr 98.1 F-99.3 F 70-97 13-22 73-145/45-101 50-100 Intake and Output 09/20/17 09/21/17 09/21/17 21:59 05:59 13:59 Intake Total 600 / 600 134 / 134 127 / 127 Output Total 625 / 625 890 / 890 270 / 270 Balance -25 / -25 -756 / -756 -143 / -143 Weight 217 lb 11.2 oz Intake & Output: Intake & Output 09/20/17 09/21/17 09/21/17 21:59 05:59 13:59 Intake Total 600 / 600 134 / 134 127 / 127 Output Total 625 / 625 890 / 890 270 / 270 Balance -25 / -25 -756 / -756 -143 / -143 Weight 217 lb 11.2 oz Intake: IV 600 / 600 134 / 134 127 / 127 Levophed 16 mg In Sodium 10 / 10 3 / 3 Chloride 0.9% 234 ml @ 10 MCG/ MIN 9.37 mls/hr IV Q24H [facility] Rx# :[id number] Diprivan 1,000 mg In Premix 1 12 / Bag @ 5 MCG/KG/MIN 2.98 mls/hr IV .Q24H [facility] Rx#:[id number] fentaNYL 2,500 MCG In Sodium 40 / 40 Chloride 0.9% 200 ml @ 25 MCG/ HR 2.5 mls/hr IV Q24H [facility] Rx#: [id number] Output: Urine Catheter Amount 625 / 625 890 / 890 270 / 270 Exam: Constitutional; Afebrile, sedated on vent, but on weaning trial does wake up and has good mental status. Eyes- No icterus, , Ears- Ext ear normal, hearing normal to conversation. Neck- Midline trachea, supple Respiratory system: Air Entry equal on both sides, No crackles or wheezing, no rhonchi. CVS- Rate rhythm irregular, S1,S2 heard, no gallop, no rub. Abdomen- Soft nontender abdomen, no organomegaly, no tenderness, no guarding or rigidity, SENIOR SOFTWARE PROJECT MANAGER- AOOx, moving all extremities, no gross focal deficit noted. Medical - PN: Obj Da - Labs CBC & Chem 7: 09/21/17 04:00 09/21/17 04:00 Labs: Abnormal Lab Results 09/21/17 09/21/17 09/21/17 04:00 04:00 04:00 WBC 12.6 H RBC 3.51 L Hgb 10.8 L Hct 32.7 L Gran % 92.8 H Lymph % (Auto) 4.1 L Gran # 11.7 H Lymph # (Auto) 0.5 L PT 17.1 H INR 1.4 H APTT BUN 73 H Creatinine 1.8 H Glucose 207 H Phosphorus GGT 78 H AST 111 H ALT 164 H Alkaline Phosphatase Lactate Dehydrogenase NT-Pro-B Natriuret Pep Urine Occult Blood Urine RBC Hyaline Casts 09/20/17 09/20/17 09/20/17 12:58 03:33 03:33 WBC RBC Hgb Hct Gran % Lymph % (Auto) Gran # Lymph # (Auto) PT 20.2 H 23.7 H INR 1.7 H 2.0 H APTT BUN 71 H Creatinine 1.8 H Glucose 165 H Phosphorus 6.6 H* GGT 116 H AST 458 H ALT 355 H Alkaline Phosphatase 122 H Lactate Dehydrogenase 474 H NT-Pro-B Natriuret Pep Urine Occult Blood Urine RBC Hyaline Casts 09/20/17 09/19/17 09/19/17 03:33 16:59 16:18 WBC 17.5 H RBC Hgb Hct Gran % 96.4 H Lymph % (Auto) 1.5 L Gran # 16.9 H Lymph # (Auto) 0.3 L PT INR APTT BUN Creatinine Glucose Phosphorus GGT AST ALT Alkaline Phosphatase Lactate Dehydrogenase NT-Pro-B Natriuret Pep 1413.0 H Urine Occult Blood 0.03 A Urine RBC 2 H Hyaline Casts 12 H 09/19/17 09/19/17 09/19/17 16:18 16:18 16:18 WBC 14.0 H RBC Hgb Hct Gran % 92.7 H Lymph % (Auto) 4.0 L Gran # 13.0 H Lymph # (Auto) 0.6 L PT 30.0 H INR 2.7 H APTT 44 H BUN 69 H Creatinine 1.4 H Glucose 115 H Phosphorus GGT AST ALT Alkaline Phosphatase Lactate Dehydrogenase NT-Pro-B Natriuret Pep Urine Occult Blood Urine RBC Hyaline Casts Meds: Medications Acetaminophen (Tylenol) 650 mg PO Q6HP PRN PRN Reason: PAIN/FEVER > 101 Albuterol/Ipratropium (Duoneb) 3 ml NEB Q4HRT [facility] Last Admin: 09/21/17 07:09 Dose: 3 ml Cefepime HCl (Maxipime) 1 gm IV DAILY [facility] Last Admin: 09/21/17 09:38 Dose: 1 gm Enoxaparin Sodium (Lovenox) 40 mg SQ DAILY [facility] Last Admin: 09/21/17 09:37 Dose: 40 mg Famotidine (Pepcid) 20 mg IV HS [facility] Fentanyl 2,500 mcg/ Sodium (Chloride) 250 mls @ 2.5 mls/hr IV Q24H [facility]; 25 MCG/ HR PRN Reason: Protocol Last Admin: 09/21/17 10:03 Dose: 150 mcg/hr, 15 mls/hr Metronidazole (Flagyl) 500 mg in 100 mls @ 100 mls/hr IV Q8H [facility] Last Admin: 09/21/17 03:45 Dose: Not Given Norepinephrine Bitartrate 16 (mg/ Sodium Chloride) 250 mls @ 9.37 mls/hr IV Q24H [facility]; 10 MCG/MIN PRN Reason: Protocol Last Titration: 09/21/17 10:04 Dose: 6 mcg/min, 5.62 mls/hr Sodium Chloride (Sodium Chloride 0.9%) 250 mls @ 20 mls/hr IV .[id number] [facility] Last Admin: 09/20/17 21:50 Dose: Not Given Sodium Chloride (Sodium Chloride 0.9%) 250 mls @ 20 mls/hr IV .[id number] [facility] Last Admin: 09/20/17 21:50 Dose: Not Given Vancomycin HCl 1,500 mg/ (Sodium Chloride) 500 mls @ 333.3 mls/hr IV ONCE ONE Stop: 09/21/17 10:30 Last Admin: 09/21/17 09:31 Dose: 333.3 mls/hr Lorazepam (Ativan) 1 - 2 mg IV Q2HP PRN PRN Reason: ANXIETY/SEDATION Last Admin: 09/21/17 08:45 Dose: 1 mg Methylprednisolone Sodium Succinate (Solu-Medrol) 62.5 mg IV Q8 [facility] Last Admin: 09/21/17 08:23 Dose: 62.5 mg Morphine Sulfate (Morphine) 2 - 4 mg IV Q2HP PRN PRN Reason: Pain Naloxone HCl (Narcan) 0.1 mg IV Q2MIN PRN PRN Reason: Opiate Reversal Ondansetron HCl (Zofran) 4 mg IV Q4HP PRN PRN Reason: Nausea And Vomiting Pramipexole Dihydrochloride (Mirapex) 0.125 mg PO TID [facility] Last Admin: 09/21/17 09:08 Dose: Not Given Simvastatin (Zocor) 5 mg PO HS [facility] Sodium Chloride (Saline Flush) 10 ml IV UD PRN PRN Reason: FLUSH Sodium Chloride (Saline Flush) 10 ml IV Q8 [facility] Last Admin: 09/21/17 08:23 Dose: 10 ml Vancomycin HCl (Vancomycin Per Pharmacy) 1 order IV UD [facility] Medical - PN: A/P - Time Spent With Patient Total time spent is greater than 50% in coordination of care (as documented) at patient's floor/unit and/or counseling patient: - Narrative A/P Narrative: A/P Hip fracture: Planned surgery by ortho, who are the primary on this patient. I am not sure if he has spoken to the family or the patient yet. I have not see any note in the chart to that regard. Acute respiratory failure Pneumonia, congestive Heart failure Pulmonary hypertension, severe cor pulmonale HTN HLD Acute Asthma exacerbation Dementia acute on chronic kidney disease. Abnl LFT Plan Patient is still high risk, for post op mortality she remains on vent, and needed pressors overnight, part of this i think is likely from use of proporol, she is off propofol and being off the leveophed right now. on weaning trial this AM she did well she had normal ph but elevated co2, i think she is likely a chr retainer at baseline. Plan to cut back Levophed today breathing trial this afternoon to see if she can be extubated, CXR is clear and she otherwise meets parameters for extubation except for the mild pressor need overnight due to likely propofol She is high risk for ventilator dependency given her very poor cardio pulmonary status, and if we can successfully extubate her to bipap, I think she will have a better chance. Not sure if surgery has still seen the patient in post op, no notes of documentation to that effect. Family updated with the plan of care, wbc is trending marycarmen, renal function is stable, LFT trending down on Lovenox and scd for dvt prophylaxis, inr is subtherapeutic for now, on lovenox, will resume all oral meds on hold, will place NG tube if we are not able to extubate her successfully. Full code for now NPO diet status. > 60 mins critical care time spent managing vent, drips, reviewing x ray , abg. coordination of care and counselling of family Medical - PN: Qual - VTE Deep Vein Thrombosis/Pulmonary Embolism Present on Admission: No
[2017-09-21] MEDS: 0.9 % SODIUM CHLORIDE 250 ML IV SCH ×5 (10:18→21:47)
[2017-09-21] MEDS ORDERED: ACETAMINOPHEN 1,000 MG/100 ML BOTTLE IV PRN (15:00)
[2017-09-21] MEDS: SIMVASTATIN 10 MG TABLET PO SCH (20:58)
[2017-09-21] MEDS: FAMOTIDINE/PF 20 MG/2 ML VIAL IV SCH (21:06)
[2017-09-22] MEDS: IPRATROPIUM/ALBUTEROL 3 ML AMPUL.NEB NEB SCH ×6 (02:55→22:53)
[2017-09-22 04:47] LABS: Basophils # (Auto) 0 K/mcL (0.0-0.3); Basophils % (Auto) 0 % (0.0-2.0); Eosinophils # (Auto) 0 K/mcL (0.0-0.7); Eosinophils % (Auto) 0 % (0.0-7.0); Granulocytes % (Auto) 93.5 % (38.0-78.0); Lymphocytes # (Auto) 0.3 K/mcL (1.5-4.8); Lymphocytes % (Auto) 3.4 % (15.5-49.0); Mean Cell Volume 93.5 fL (80.0-100.0); Mean Corpuscular Hemoglobin 30.9 pg (26.0-34.0); Monocytes # (Auto) 0.2 K/mcL (0.1-0.9); Monocytes % (Auto) 3.1 % (1.0-12.0); Platelet Count 116 K/mcL (140-440); Red Cell Distribution Width 13.5 % (11.5-14.5)
[2017-09-22 04:57] LABS: ALT/SGPT 70 U/l (0-40); Albumin 2.9 gm/dL (3.2-5.2); Albumin/Globulin Ratio 1.1 (1.0-2.3); Alkaline Phosphatase 71 U/L (39-117); Bilirubin,Direct < 0.2 mg/dL (0.0-0.3); Blood Urea Nitrogen 79 mg/dl (8-23); Gamma Glutamyl Transpeptidase 60 U/L (5-36); Magnesium 2.5 mg/dL (1.6-2.5); Uric Acid 8.3 mg/dL (2.5-8.0)
[2017-09-22] MEDS: metroNIDAZOLE 500 MG/100 ML BAG IV SCH ×3 (05:49→21:57)
[2017-09-22] MEDS: methylPREDNISolone SOD SUCC 125 MG/2 ML VIAL IV SCH ×3 (06:01→20:15)
[2017-09-22] MEDS: 0.9 % SODIUM CHLORIDE 10 ML SYRINGE IV SCH ×3 (06:01→21:57)
--- NOTE | 2017-09-22 09:03 | XRay Report ---
INDICATION: Congestive heart failure TECHNIQUE: AP chest x-ray,upright portable COMPARISON: Previous chest x-rays dated 09/21/2017, 09/20/2017, 09/19/2017 FINDINGS:Status post removal of endotracheal tube. No change in right central venous catheter position. Persistent cardiomegaly, increased since 09/21/2017. Pericardial effusion is not excluded. No focal pulmonary parenchymal infiltrate or mass. No definite pulmonary edema. No detectable pleural effusion IMPRESSION: 1. Marked cardiomegaly. Pericardial effusion is possible. 2. Status post extubation. 3. No focal pulmonary parenchymal infiltrate Interpreted and Authenticated by: Tristian Fernández 09/22/17
[2017-09-22] MEDS: ENOXAPARIN 40 MG/0.4 ML SYRINGE SQ SCH (09:41)
[2017-09-22] MEDS: CEFEPIME 1 GM VIAL IV SCH (09:41)
[2017-09-22] MEDS: PRAMIPEXOLE 0.25 MG TABLET PO SCH ×3 (09:41→20:17)
[2017-09-22] MEDS: fentaNYL 2,500 MCG in 0.9 % SODIUM CHLORIDE 200 ML IV SCH (09:42)
[2017-09-22] MEDS: NOREPINEPHRINE BITARTRATE 16 MG in 0.9 % SODIUM CHLORIDE 234 ML IV SCH (09:42)
[2017-09-22] MEDS ORDERED: NOREPINEPHRINE BITARTRATE 16 MG in 0.9 % SODIUM CHLORIDE 234 ML IV PRN (10:00)
[2017-09-22] MEDS ORDERED: FLU VACC QS2017-18 36MOS UP/PF 60 MCG/0.5 ML SYRINGE IM ONE (13:00)
[2017-09-22] MEDS: 0.9 % SODIUM CHLORIDE 250 ML IV SCH ×4 (13:55→23:17)
[2017-09-22] MEDS ORDERED: WARFARIN 5 MG TABLET PO ONE (14:00)
--- NOTE | 2017-09-22 16:46 | Internal Med Progress Note ---
Medical - PN: Subj Patient information: Note initiated : 09/22/17 at 4:43 pm Service Date, if different from initiated Date: [] Patient: Tana Frederick a 77 y/o F admitted on 09/19/17 for Fall-R hip pain. Chief Complaint: [] Interval history: Ms. Frederick is a 77 year old Female with h/o dementia, chf, cor pulmonale, asthma, ckd, presents to the ER after a fall, The patient was Enroute to see her pcp today, her dropped her at the gate and went to park the car, on coming back he noted that the patient was sitting on the floor, with few nurses surrounding the patient. The patient does not remember what exactly happened, but noted her right hip and knee hurt. She was seen by her PCP who noted that she has a right hip fracture and was therefore sent here to the ER for further evaluation The patient admits to being short of breath, but beyond that does not report any other acute symptoms, she has pain in the right hip. but denies chest pain, no palpitations, dizziness, no headache, no gi or gu symptoms reported, she had some abdominal pain issues and was recently diagnosed with UTI and was prescribed Augmentin. The patient has poor ET, MEt around 1-3, The patient Chest x ray shows acute congestive heart failure, her head ct is negative, ua neg, she has leucocytosis on cbc, cxr is neg. The patient has severe pulmonary hypertension, cor pulmonale on last echo 2014 , she has LVH with low normal systolic function. the patient was admitted to [facility] for hip revision and medicine consulted for medical optimization Family present at bedside, son and . who gave history and are aware of patients overall poor prognosis September 20 Patient seen examined, no acute overnight events, pt doing well, no acute concerns CXR still shows congestion INR is 2.0 patient denies chest pain, or other complaints Confusion over whether the patient can have surgery here, due to her high risk status. it seems that she might end up getting the surgery here. The patients WBC count is up, procalcitonin is elevated, ? pneumonia, x ray only notes congestion, but given her age, will cover with antibiotics. The patient is very high risk for surgery, anesthesia aware, family aware. LFT uptrending, usg liver ordered. patient seen examined, post op on the vent overnight needing levophed to keep her bp up, blood culture is gpc in one bottle only (contaminant) X ray chest this AM is stable, no new infiltrates she did tolerate breathing trial well this AM with TV of 375-450, and stable ABG 7.38/60/140 of 50% fio2, peep 5 The patient is intermittently anxious and needs some ativan to help, but mental status otherwise is good, she is able to follow commands and be easily redirected so far Nov 12 Patient seen examined no acute overnight issues, tolerated bipap well this AM was given a break from bipap, which she tolerated well, abg on nc oxygen was ok, she was not placed back on bipap and has done well so far mental status good denies any complaints family by bedside. A line came out, no need for reinsertion. Pertinent ROS: Denies headache, dizziness Denies chest pain, palpitations Denies cough or shortness of breath Denies abdominal pain, nausea or vomiting. - Constitutional Vitals: Vital Signs Temp Pulse Resp BP Pulse Ox 98.5 F 96 H 14 79/44 98 09/22/17 12:00 09/22/17 14:53 09/22/17 14:53 09/21/17 10:32 09/22/17 12:15 Period Temp Pulse Resp BP Sys/Roca Pulse Ox Last 24 Hr 97.3 F-98.5 F 33-135 14-21 81-100 Intake and Output 09/22/17 09/22/17 09/22/17 05:59 13:59 21:59 Intake Total 100 / 100 100 / 100 360 / 360 Output Total 620 / 620 410 / 410 Balance -520 / -520 -310 / -310 360 / 360 Intake & Output: Intake & Output 09/22/17 09/22/17 09/22/17 05:59 13:59 21:59 Intake Total 100 / 100 100 / 100 360 / 360 Output Total 620 / 620 410 / 410 Balance -520 / -520 -310 / -310 360 / 360 Intake: IV 100 / 100 100 / 100 0 / 0 Oral 360 / 360 Output: Urine Catheter Amount 620 / 620 410 / 410 Exam: Constitutional; Afebrile, cooperative, alert, not in distress. Eyes- No icterus, , No periorbital swelling Ears- Ext ear normal, hearing normal to conversation. Neck- Midline trachea, supple Respiratory system: Air Entry equal on both sides, No crackles or wheezing, no rhonchi. CVS- Rate rhythm irregular, S1,S2 heard, no gallop, no rub. Abdomen- Soft nontender abdomen, no organomegaly, no tenderness, no guarding or rigidity, ROOF BOLTER- AOOx2, moving all extremities, no gross focal deficit noted. Medical - PN: Obj Da - Labs CBC & Chem 7: 09/22/17 04:00 09/22/17 04:00 Labs: Abnormal Lab Results 09/22/17 09/22/17 09/22/17 04:00 04:00 04:00 WBC RBC 3.00 L Hgb 9.3 L Hct 28.0 L Plt Count 116 L Gran % 93.5 H Lymph % (Auto) 3.4 L Gran # Lymph # (Auto) 0.3 L PT 16.6 H INR 1.3 H APTT BUN 79 H Creatinine 2.0 H Glucose 147 H Uric Acid 8.3 H Phosphorus 5.0 H GGT 60 H AST 38 H ALT 70 H Alkaline Phosphatase Lactate Dehydrogenase NT-Pro-B Natriuret Pep Total Protein 5.5 L Albumin 2.9 L Urine Occult Blood Urine RBC Hyaline Casts 09/21/17 09/21/17 09/21/17 04:00 04:00 04:00 WBC 12.6 H RBC 3.51 L Hgb 10.8 L Hct 32.7 L Plt Count Gran % 92.8 H Lymph % (Auto) 4.1 L Gran # 11.7 H Lymph # (Auto) 0.5 L PT 17.1 H INR 1.4 H APTT BUN 73 H Creatinine 1.8 H Glucose 207 H Uric Acid Phosphorus GGT 78 H AST 111 H ALT 164 H Alkaline Phosphatase Lactate Dehydrogenase NT-Pro-B Natriuret Pep Total Protein Albumin Urine Occult Blood Urine RBC Hyaline Casts 09/20/17 09/20/17 09/20/17 12:58 03:33 03:33 WBC RBC Hgb Hct Plt Count Gran % Lymph % (Auto) Gran # Lymph # (Auto) PT 20.2 H 23.7 H INR 1.7 H 2.0 H APTT BUN 71 H Creatinine 1.8 H Glucose 165 H Uric Acid Phosphorus 6.6 H* GGT 116 H AST 458 H ALT 355 H Alkaline Phosphatase 122 H Lactate Dehydrogenase 474 H NT-Pro-B Natriuret Pep Total Protein Albumin Urine Occult Blood Urine RBC Hyaline Casts 09/20/17 09/19/17 09/19/17 03:33 16:59 16:18 WBC 17.5 H RBC Hgb Hct Plt Count Gran % 96.4 H Lymph % (Auto) 1.5 L Gran # 16.9 H Lymph # (Auto) 0.3 L PT INR APTT BUN Creatinine Glucose Uric Acid Phosphorus GGT AST ALT Alkaline Phosphatase Lactate Dehydrogenase NT-Pro-B Natriuret Pep 1413.0 H Total Protein Albumin Urine Occult Blood 0.03 A Urine RBC 2 H Hyaline Casts 12 H 09/19/17 09/19/17 09/19/17 16:18 16:18 16:18 WBC 14.0 H RBC Hgb Hct Plt Count Gran % 92.7 H Lymph % (Auto) 4.0 L Gran # 13.0 H Lymph # (Auto) 0.6 L PT 30.0 H INR 2.7 H APTT 44 H BUN 69 H Creatinine 1.4 H Glucose 115 H Uric Acid Phosphorus GGT AST ALT Alkaline Phosphatase Lactate Dehydrogenase NT-Pro-B Natriuret Pep Total Protein Albumin Urine Occult Blood Urine RBC Hyaline Casts Meds: Medications Acetaminophen (Tylenol) 650 mg PO Q6HP PRN PRN Reason: PAIN/FEVER > 101 Albuterol/Ipratropium (Duoneb) 3 ml NEB Q4HRT [facility] Last Admin: 09/22/17 14:46 Dose: 3 ml Cefepime HCl (Maxipime) 1 gm IV DAILY [facility] Last Admin: 09/22/17 09:41 Dose: 1 gm Enoxaparin Sodium (Lovenox) 40 mg SQ DAILY [facility] Last Admin: 09/22/17 09:41 Dose: 40 mg Famotidine (Pepcid) 20 mg IV HS [facility] Last Admin: 09/21/17 21:06 Dose: 20 mg Metronidazole (Flagyl) 500 mg in 100 mls @ 100 mls/hr IV Q8H [facility] Last Admin: 09/22/17 14:04 Dose: 100 mls/hr Sodium Chloride (Sodium Chloride 0.9%) 250 mls @ 20 mls/hr IV .[id number] [facility] Last Admin: 09/22/17 13:55 Dose: Not Given Sodium Chloride (Sodium Chloride 0.9%) 250 mls @ 20 mls/hr IV .[id number] [facility] Last Admin: 09/22/17 14:04 Dose: Not Given Acetaminophen (Ofirmev) 1,000 mg in 100 mls @ 200 mls/hr IV Q6HP PRN PRN Reason: PAIN/FEVER > 101 Norepinephrine Bitartrate 16 (mg/ Sodium Chloride) 250 mls @ 9.37 mls/hr IV Q24HP PRN; Protocol; 10 MCG/MIN PRN Reason: HYPOTENSION Lorazepam (Ativan) 1 - 2 mg IV Q2HP PRN PRN Reason: ANXIETY/SEDATION Last Admin: 09/21/17 11:20 Dose: 1 mg Methylprednisolone Sodium Succinate (Solu-Medrol) 62.5 mg IV Q8 [facility] Last Admin: 09/22/17 14:14 Dose: 62.5 mg Morphine Sulfate (Morphine) 2 - 4 mg IV Q2HP PRN PRN Reason: Pain Last Admin: 09/22/17 13:57 Dose: 2 mg Naloxone HCl (Narcan) 0.1 mg IV Q2MIN PRN PRN Reason: Opiate Reversal Ondansetron HCl (Zofran) 4 mg IV Q4HP PRN PRN Reason: Nausea And Vomiting Pramipexole Dihydrochloride (Mirapex) 0.125 mg PO TID [facility] Last Admin: 09/22/17 14:15 Dose: 0.125 mg Simvastatin (Zocor) 5 mg PO HS [facility] Last Admin: 09/21/17 20:58 Dose: Not Given Sodium Chloride (Saline Flush) 10 ml IV UD PRN PRN Reason: FLUSH Sodium Chloride (Saline Flush) 10 ml IV Q8 [facility] Last Admin: 09/22/17 14:05 Dose: 10 ml Vancomycin HCl (Vancomycin Per Pharmacy) 1 order IV [facility] Warfarin Sodium (Coumadin Per Pharmacy) 1 order PO [facility] Medical - PN: A/P - Time Spent With Patient Total time spent is greater than 50% in coordination of care (as documented) at patient's floor/unit and/or counseling patient: - Narrative A/P Narrative: A/P Hip fracture: Planned surgery by ortho, who are the primary on this patient. I am not sure if he has spoken to the family or the patient yet. I have not see any note in the chart to that regard. Acute respiratory failure Pneumonia, congestive Heart failure Pulmonary hypertension, severe cor pulmonale HTN HLD Acute Asthma exacerbation Dementia acute on chronic kidney disease. Abnl LFT Plan Patient is still high risk, for post op mortality, but seems to be stable now, off bipap, tolerating nasal canula well. wbc is trending down, renal function is stable, LFT trending down, continue to monitor. on Lovenox and scd for dvt prophylaxis, inr is subtherapeutic for now, on lovenox, will resume coumadin. resume oral meds. Full code for now NPO diet status. > 30 mins critical care time spent managing vent, drips, reviewing x ray , abg. coordination of care and counselling of family Medical - PN: Qual - VTE Deep Vein Thrombosis/Pulmonary Embolism Present on Admission: No
[2017-09-22] MEDS ORDERED: CYANOCOBALAMIN 1,000 MCG/ML VIAL IM ONE (18:01)
[2017-09-22] MEDS ORDERED: POLYETHYLENE GLYCOL 3350 17 GM PACKET PO PRN (19:54)
[2017-09-22] MEDS: SPIRONOLACTONE 25 MG TABLET PO SCH (20:17)
[2017-09-22] MEDS: SIMVASTATIN 10 MG TABLET PO SCH (20:18)
[2017-09-22] MEDS: FAMOTIDINE/PF 20 MG/2 ML VIAL IV SCH (20:19)
[2017-09-22] MEDS ORDERED: DONEPEZIL 10 MG TABLET PO SCH (21:00)
[2017-09-22] MEDS ORDERED: FUROSEMIDE 40 MG TABLET PO SCH (21:00)
[2017-09-23] MEDS: IPRATROPIUM/ALBUTEROL 3 ML AMPUL.NEB NEB SCH ×6 (03:02→22:46)
[2017-09-23 05:32] LABS: Basophils # (Auto) 0 K/mcL (0.0-0.3); Basophils % (Auto) 0 % (0.0-2.0); Eosinophils # (Auto) 0 K/mcL (0.0-0.7); Eosinophils % (Auto) 0 % (0.0-7.0); Granulocytes % (Auto) 93.1 % (38.0-78.0); Lymphocytes # (Auto) 0.3 K/mcL (1.5-4.8); Mean Cell Volume 93.5 fL (80.0-100.0); Mean Corpuscular HGB Conc 32.9 g/dL (31.0-36.0); Mean Corpuscular Hemoglobin 30.8 pg (26.0-34.0); Monocytes # (Auto) 0.2 K/mcL (0.1-0.9); Monocytes % (Auto) 2.9 % (1.0-12.0); Platelet Count 115 K/mcL (140-440); RBC 2.84 M/mcL (4.00-5.20)
[2017-09-23 05:42] LABS: ALT/SGPT 45 U/l (0-40); Albumin 3.2 gm/dL (3.2-5.2); Albumin/Globulin Ratio 1.4 (1.0-2.3); Alkaline Phosphatase 61 U/L (39-117); Bilirubin,Direct < 0.2 mg/dL (0.0-0.3); Blood Urea Nitrogen 89 mg/dl (8-23); Gamma Glutamyl Transpeptidase 53 U/L (5-36); Magnesium 2.6 mg/dL (1.6-2.5); Uric Acid 9.1 mg/dL (2.5-8.0)
[2017-09-23] MEDS: metroNIDAZOLE 500 MG/100 ML BAG IV SCH ×3 (05:42→21:26)
[2017-09-23] MEDS: 0.9 % SODIUM CHLORIDE 10 ML SYRINGE IV SCH ×3 (05:43→21:30)
--- NOTE | 2017-09-23 07:37 | XRay Report ---
INDICATION: Congestive heart failure TECHNIQUE: AP chest x-ray,portable upright COMPARISON: Chest x-rays dated 09/22/2017, 09/21/2017, 09/20/2017. FINDINGS:No change in right central venous catheter position. Persistent cardiomegaly. No evidence for pulmonary edema or significant pulmonary congestion. Mild bibasilar atelectasis or infiltrate. IMPRESSION: 1. Cardiomegaly, unchanged. No pulmonary edema 2. Mild bibasilar atelectasis or infiltrate. Findings are stable. Interpreted and Authenticated by: Tristian Fernández 09/23/17
--- NOTE | 2017-09-23 07:45 | Operative Note ---
DATE OF OPERATION: 09/19/2017 PREOPERATIVE DIAGNOSIS: Right displaced midcervical femoral neck fracture, closed. POSTOPERATIVE DIAGNOSIS: Right displaced midcervical femoral neck fracture, closed. PROCEDURE PERFORMED: Open treatment of the right displaced midcervical femoral neck fracture with prosthetic hemiarthroplasty placing a DePuy Haakon cemented fracture stem size 5 with a +5 neck length and a 46 unipolar head. SURGEON: Valeriano Banegas MD. PARTS ORDER AND STOCK CLERK: Mike Wilson PA-C. ANESTHESIA: General. DRAINS: None. SPECIMENS: None. BLOOD LOSS: 250 mL COMPLICATIONS: None. POSTOPERATIVE CONDITION: Guarded. INDICATIONS FOR SURGERY: This is a 77-year-old female who has dementia and multiple medical comorbidities who fell and injured her right hip and was unable to bear weight. She was taken to the urgent care and x-rays showed a displaced femoral neck fracture. FINDINGS AT SURGERY: As above. Post hemiarthroplasty showed stable prosthesis. PROCEDURE IN DETAIL: The patient and family had been seen preoperatively and informed consent had been obtained. The correct operative site was marked and the patient was taken to OR and general anesthesia induced. She was carefully positioned in the left lateral decubitus position in the right hip and leg were carefully prepped and draped in normal sterile fashion. Time out was performed verifying patient name, operative site, and plan. Standard posterior approach incision was made with a scalpel through skin and subcutaneous tissue. We continued through very deep subcutaneous fat layers and continued obtaining hemostasis until down onto the tensor fascia. We then incised this in line with the skin incision. A Charnley retractor was placed and then we began detaching short external rotators. Exposure was very difficult due to her morbid obesity. We went ahead and released capsule down to the lesser trochanter and then a corkscrew was placed in the femoral head. When we tried to remove it, it fragmented so this was removed with a rongeur. Once head fragments were removed we took the largest head fragment and tried to get an idea of size. We trialed a 46 and this seemed to fit reasonably well, so we went ahead and exposed the femoral shaft. Box osteotome was used to gain canal entry. Handheld reamer was used to find the canal. We then lateralized and then began broaching. We went up to a size 5, calcar planed down and then trialed this with a -2.5. This reduced easily and was able to be dislocated, so we went up to a size 0. This was much better stability, but we were able to dislocate so we went up to a +5 and this was very stable, so we removed trial implants. Definitive implant was opened while antibiotic cement was mixed. We irrigated with IrriSept down the femoral canal in the joint. After a minute we pulse lavaged copiously with saline and then cement restrictor was placed and the canal was dried with the sponge suction. We then removed this. Once cement was ready and we injected the canal, we pressurized this with our thumb and then injected more cement. We then placed the stem in about 15 degrees of anteversion to the leg. Excess cement was removed and held absolutely still until cement had completely hardened. We then opened a +5 46 unipolar head. The stem was carefully cleaned and dried and then head ball was impacted. The hip was reduced. Stability was double checked with flexion and internal rotation, and was very stable, so we placed the leg on a Adams stand. We used a final pulse lavage and then #5 [address] was used to place a [id number] in the capsule. We then used #1 Vicryl running stitch to try and repair the ITB. She did have fairly poor quality tissue and the suture kept pulling through. We did a final IrriSept irrigation and after waiting, then final saline. A #1 Vicryl was used to close the deep fat layers and then Monocryl for subcutaneous and amelie for skin. Xeroform and sterile dressing were applied. The leg was placed in an abductor immobilizer. The patient was then transferred to the Intensive Care Unit still intubated. LUCY:cris Job ID: [id number] Doc ID: [id number] Valeriano Banegas MD
[2017-09-23] MEDS ORDERED: FUROSEMIDE 40 MG TABLET PO SCH ×2 (09:00→21:00)
[2017-09-23] MEDS ORDERED: PARoxetine 20 MG TABLET PO SCH (09:00)
[2017-09-23] MEDS ORDERED: NON FORMULARY MEDICATION 1 DOSE MISCELL (Cyanocobalamin (Vitamin B-12) [B-12 Compliance] 1 IV/IM SCH (09:00)
[2017-09-23] MEDS: CEFEPIME 1 GM VIAL IV SCH (09:34)
[2017-09-23] MEDS: methylPREDNISolone SOD SUCC 125 MG/2 ML VIAL IV SCH (09:35)
[2017-09-23] MEDS: ENOXAPARIN 40 MG/0.4 ML SYRINGE SQ SCH (09:35)
[2017-09-23] MEDS: SPIRONOLACTONE 25 MG TABLET PO SCH ×2 (09:36→21:29)
[2017-09-23] MEDS ORDERED: VANCOMYCIN 1,500 MG in 0.9 % SODIUM CHLORIDE 500 ML IV ONE (10:00)
[2017-09-23] MEDS: LORazepam 2 MG/ML VIAL IV PRN (10:01)
[2017-09-23] MEDS: PRAMIPEXOLE 0.25 MG TABLET PO SCH ×3 (10:36→21:29)
--- NOTE | 2017-09-23 11:11 | Internal Med Progress Note ---
Medical - PN: Subj Patient information: Note initiated : 09/23/17 at 11:06 am Service Date, if different from initiated Date: [] Patient: Tana Frederick a 77 y/o F admitted on 09/19/17 for Fall-R hip pain. Chief Complaint: [] Interval history: Ms. Frederick is a 77 year old Female with h/o dementia, chf, cor pulmonale, asthma, ckd, presents to the ER after a fall, The patient was Enroute to see her pcp today, her dropped her at the gate and went to park the car, on coming back he noted that the patient was sitting on the floor, with few nurses surrounding the patient. The patient does not remember what exactly happened, but noted her right hip and knee hurt. She was seen by her PCP who noted that she has a right hip fracture and was therefore sent here to the ER for further evaluation The patient admits to being short of breath, but beyond that does not report any other acute symptoms, she has pain in the right hip. but denies chest pain, no palpitations, dizziness, no headache, no gi or gu symptoms reported, she had some abdominal pain issues and was recently diagnosed with UTI and was prescribed Augmentin. The patient has poor ET, MEt around 1-3, The patient Chest x ray shows acute congestive heart failure, her head ct is negative, ua neg, she has leucocytosis on cbc, cxr is neg. The patient has severe pulmonary hypertension, cor pulmonale on last echo 2014 , she has LVH with low normal systolic function. the patient was admitted to [facility] for hip revision and medicine consulted for medical optimization Family present at bedside, son and . who gave history and are aware of patients overall poor prognosis September 20 Patient seen examined, no acute overnight events, pt doing well, no acute concerns CXR still shows congestion INR is 2.0 patient denies chest pain, or other complaints Confusion over whether the patient can have surgery here, due to her high risk status. it seems that she might end up getting the surgery here. The patients WBC count is up, procalcitonin is elevated, ? pneumonia, x ray only notes congestion, but given her age, will cover with antibiotics. The patient is very high risk for surgery, anesthesia aware, family aware. LFT uptrending, usg liver ordered. patient seen examined, post op on the vent overnight needing levophed to keep her bp up, blood culture is gpc in one bottle only (contaminant) X ray chest this AM is stable, no new infiltrates she did tolerate breathing trial well this AM with TV of 375-450, and stable ABG 7.38/60/140 of 50% fio2, peep 5 The patient is intermittently anxious and needs some ativan to help, but mental status otherwise is good, she is able to follow commands and be easily redirected so far Sep 22 Patient seen examined no acute overnight issues, tolerated bipap well this AM was given a break from bipap, which she tolerated well, abg on nc oxygen was ok, she was not placed back on bipap and has done well so far mental status good denies any complaints family by bedside. A line came out, no need for reinsertion. September 23 Patient seen examined remains off bipap, doing well, x ray stable pt has cough, but denies any other complaints afebile, vital stable slight worsening of renal function ok to transfer to med surg Pertinent ROS: Denies headache, dizziness Denies chest pain, palpitations prsent cough but no shortness of breath Denies abdominal pain, nausea or vomiting. - Constitutional Vitals: Vital Signs Temp Pulse Resp BP Pulse Ox 98.0 F 91 H 20 111/77 96 09/23/17 04:00 09/23/17 10:00 09/23/17 07:17 09/23/17 09:39 09/23/17 10:00 Period Temp Pulse Resp BP Sys/Roca Pulse Ox Last 24 Hr 98.0 F-98.9 F 25-146 14-20 91-206/60-175 72-100 Intake and Output 09/22/17 09/23/17 09/23/17 21:59 05:59 13:59 Intake Total 460 / 460 100 / 100 240 / 240 Output Total 405 / 405 835 / 835 312 / 312 Balance 55 / 55 -735 / -735 -72 / -72 Weight 217 lb Intake & Output: Intake & Output 09/22/17 09/23/17 09/23/17 21:59 05:59 13:59 Intake Total 460 / 460 100 / 100 240 / 240 Output Total 405 / 405 835 / 835 312 / 312 Balance 55 / 55 -735 / -735 -72 / -72 Weight 217 lb Intake: IV 100 / 100 100 / 100 Oral 360 / 360 240 / 240 Output: Urine Catheter Amount 405 / 405 835 / 835 312 / 312 Other: Meal Breakfast Percent of Meal Consumed 100% # Bowel Movements 1 Exam: Constitutional; Afebrile, cooperative, alert, not in distress. Eyes- No icterus, , No periorbital swelling Ears- Ext ear normal, hearing normal to conversation. Neck- Midline trachea, supple Respiratory system: Air Entry equal on both sides, No crackles but has joi exp wheezing, prolonged exp phase. CVS- Rate rhythm regular, S1,S2 heard, no gallop, no rub. Abdomen- Soft nontender abdomen, no organomegaly, no tenderness, no guarding or rigidity, [employer]ER- AOOx2, moving all extremities, no gross focal deficit noted. Medical - PN: Obj Da - Labs CBC & Chem 7: 09/23/17 03:45 09/23/17 03:45 Labs: Abnormal Lab Results 09/23/17 09/23/17 09/23/17 03:45 03:45 03:45 WBC RBC 2.84 L Hgb 8.8 L Hct 26.6 L Plt Count 115 L Gran % 93.1 H Lymph % (Auto) 4.0 L Gran # Lymph # (Auto) 0.3 L PT 19.0 H INR 1.5 H BUN 89 H Creatinine 1.9 H Glucose 145 H Uric Acid 9.1 H Phosphorus 5.0 H Magnesium 2.6 H GGT 53 H AST ALT 45 H Total Protein 5.5 L Albumin 09/22/17 09/22/17 09/22/17 04:00 04:00 04:00 WBC RBC 3.00 L Hgb 9.3 L Hct 28.0 L Plt Count 116 L Gran % 93.5 H Lymph % (Auto) 3.4 L Gran # Lymph # (Auto) 0.3 L PT 16.6 H INR 1.3 H BUN 79 H Creatinine 2.0 H Glucose 147 H Uric Acid 8.3 H Phosphorus 5.0 H Magnesium GGT 60 H AST 38 H ALT 70 H Total Protein 5.5 L Albumin 2.9 L 09/21/17 09/21/17 09/21/17 04:00 04:00 04:00 WBC 12.6 H RBC 3.51 L Hgb 10.8 L Hct 32.7 L Plt Count Gran % 92.8 H Lymph % (Auto) 4.1 L Gran # 11.7 H Lymph # (Auto) 0.5 L PT 17.1 H INR 1.4 H BUN 73 H Creatinine 1.8 H Glucose 207 H Uric Acid Phosphorus Magnesium GGT 78 H AST 111 H ALT 164 H Total Protein Albumin 09/20/17 12:58 WBC RBC Hgb Hct Plt Count Gran % Lymph % (Auto) Gran # Lymph # (Auto) PT 20.2 H INR 1.7 H BUN Creatinine Glucose Uric Acid Phosphorus Magnesium GGT AST ALT Total Protein Albumin Meds: Medications Acetaminophen (Tylenol) 650 mg PO Q6HP PRN PRN Reason: PAIN/FEVER > 101 Albuterol/Ipratropium (Duoneb) 3 ml NEB Q4HRT [facility] Last Admin: 09/23/17 07:17 Dose: 3 ml Cefepime HCl (Maxipime) 1 gm IV DAILY [facility] Last Admin: 09/23/17 09:34 Dose: 1 gm Donepezil HCl (Aricept) 10 mg PO HS [facility] Last Admin: 09/22/17 20:19 Dose: 10 mg Enoxaparin Sodium (Lovenox) 40 mg SQ DAILY [facility] Last Admin: 09/23/17 09:35 Dose: 40 mg Famotidine (Pepcid) 20 mg IV HS [facility] Last Admin: 09/22/17 20:19 Dose: 20 mg Furosemide (Lasix) 40 mg PO HS [facility] Last Admin: 09/22/17 20:17 Dose: 40 mg Furosemide (Lasix) 80 mg PO DAILY [facility] Last Admin: 09/23/17 09:37 Dose: 80 mg Metronidazole (Flagyl) 500 mg in 100 mls @ 100 mls/hr IV Q8H [facility] Last Admin: 09/23/17 05:42 Dose: 100 mls/hr Sodium Chloride (Sodium Chloride 0.9%) 250 mls @ 20 mls/hr IV .[id number] [facility] Last Admin: 09/22/17 23:17 Dose: Not Given Sodium Chloride (Sodium Chloride 0.9%) 250 mls @ 20 mls/hr IV .[id number] [facility] Last Admin: 09/22/17 23:17 Dose: Not Given Acetaminophen (Ofirmev) 1,000 mg in 100 mls @ 200 mls/hr IV Q6HP PRN PRN Reason: PAIN/FEVER > 101 Norepinephrine Bitartrate 16 (mg/ Sodium Chloride) 250 mls @ 9.37 mls/hr IV Q24HP PRN; Protocol; 10 MCG/MIN PRN Reason: HYPOTENSION Vancomycin HCl 1,500 mg/ (Sodium Chloride) 500 mls @ 333.3 mls/hr IV ONCE ONE Stop: 09/23/17 11:30 Last Admin: 09/23/17 10:30 Dose: 333.3 mls/hr Lorazepam (Ativan) 1 - 2 mg IV Q2HP PRN PRN Reason: ANXIETY/SEDATION Last Admin: 09/23/17 10:01 Dose: 1 mg Methylprednisolone Sodium Succinate (Solu-Medrol) 62.5 mg IV Q12 [facility] Last Admin: 09/23/17 09:35 Dose: 62.5 mg Morphine Sulfate (Morphine) 2 - 4 mg IV Q2HP PRN PRN Reason: Pain Last Admin: 09/22/17 13:57 Dose: 2 mg Naloxone HCl (Narcan) 0.1 mg IV Q2MIN PRN PRN Reason: Opiate Reversal Ondansetron HCl (Zofran) 4 mg IV Q4HP PRN PRN Reason: Nausea And Vomiting Paroxetine HCl (Paxil) 10 mg PO DAILY [facility] Last Admin: 09/23/17 09:37 Dose: 10 mg Polyethylene Glycol (Miralax) 17 gm PO HSP PRN PRN Reason: Constipation Pramipexole Dihydrochloride (Mirapex) 0.125 mg PO TID [facility] Last Admin: 09/23/17 10:36 Dose: 0.125 mg Simvastatin (Zocor) 5 mg PO HS [facility] Last Admin: 09/22/17 20:18 Dose: 5 mg Sodium Chloride (Saline Flush) 10 ml IV UD PRN PRN Reason: FLUSH Sodium Chloride (Saline Flush) 10 ml IV Q8 [facility] Last Admin: 09/23/17 05:43 Dose: 10 ml Spironolactone (Aldactone) 50 mg PO BID [facility] Last Admin: 09/23/17 09:36 Dose: 50 mg Vancomycin HCl (Vancomycin Per Pharmacy) 1 order IV UD [facility] Warfarin Sodium (Coumadin Per Pharmacy) 1 order PO UD [facility] Warfarin Sodium (Coumadin) 5 mg PO ONCE@1400 ONE Stop: 09/23/17 14:01 Medical - PN: A/P - Time Spent With Patient Total time spent is greater than 50% in coordination of care (as documented) at patient's floor/unit and/or counseling patient: - Narrative A/P Narrative: A/P Hip fracture:s/p surgery, I am not sure if he has done any post op evaluations to evaluate surgical wound. I have not see any note in the chart to that regard , Acute respiratory failure Pneumonia, congestive Heart failure Pulmonary hypertension, severe cor pulmonale HTN HLD Acute Asthma exacerbation Dementia acute on chronic kidney disease. Abnl LFT Plan Patient off bipap, tolerated well x 24 hrs now on NC, xfer to med surg status, PT as tolerated. wbc is trending down, renal function is stable, LFT trending down, continue to monitor. on Lovenox and scd for dvt prophylaxis, inr is subtherapeutic for now, on lovenox, will resume coumadin. On steroids and duonebs for astham exacerbation Renal function to be monitored, closely, will use very gentle hydration if needed . IV vanco, cefepime flagyl and zithromax for pna, x ray stable, on baseline oxygen. Continue fo total of 5-7 days. Full code for now advance diet Full code. Medical - PN: Qual - VTE Deep Vein Thrombosis/Pulmonary Embolism Present on Admission: No
[2017-09-23] MEDS ORDERED: POLYETHYLENE GLYCOL 3350 17 GM PACKET PO PRN (13:28)
[2017-09-23] MEDS ORDERED: VANCOMYCIN PER PHARMACY IV SCH (13:28)
[2017-09-23] MEDS ORDERED: NOREPINEPHRINE BITARTRATE 16 MG in 0.9 % SODIUM CHLORIDE 234 ML IV PRN (13:28)
[2017-09-23] MEDS ORDERED: LORazepam 2 MG/ML VIAL IV PRN (13:28)
[2017-09-23] MEDS ORDERED: ONDANSETRON 4 MG/2 ML VIAL IV PRN (13:28)
[2017-09-23] MEDS ORDERED: NALOXONE HCL 0.4 MG/ML VIAL IV PRN (13:28)
[2017-09-23] MEDS ORDERED: ACETAMINOPHEN 1,000 MG/100 ML BOTTLE IV PRN (13:28)
[2017-09-23] MEDS ORDERED: 0.9 % SODIUM CHLORIDE 250 ML IV SCH ×2 (13:28)
[2017-09-23] MEDS ORDERED: WARFARIN 5 MG TABLET PO ONE ×2 (14:00)
[2017-09-23] MEDS: 0.9 % SODIUM CHLORIDE 250 ML IV SCH ×2 (16:34→16:35)
[2017-09-23] MEDS ORDERED: methylPREDNISolone SOD SUCC 125 MG/2 ML VIAL IV SCH (21:00)
[2017-09-23] MEDS: FAMOTIDINE/PF 20 MG/2 ML VIAL IV SCH (21:28)
[2017-09-23] MEDS: SIMVASTATIN 10 MG TABLET PO SCH (21:28)
[2017-09-23] MEDS: DONEPEZIL 10 MG TABLET PO SCH (21:28)
[2017-09-24] MEDS: IPRATROPIUM/ALBUTEROL 3 ML AMPUL.NEB NEB SCH ×6 (02:43→23:27)
[2017-09-24] MEDS: ACETAMINOPHEN 325 MG TABLET PO PRN ×2 (03:55→20:53)
[2017-09-24] MEDS: 0.9 % SODIUM CHLORIDE 10 ML SYRINGE IV SCH ×3 (05:27→20:56)
[2017-09-24] MEDS: metroNIDAZOLE 500 MG/100 ML BAG IV SCH ×3 (05:28→21:14)
[2017-09-24 05:49] LABS: Basophils # (Auto) 0 K/mcL (0.0-0.3); Basophils % (Auto) 0 % (0.0-2.0); Eosinophils # (Auto) 0 K/mcL (0.0-0.7); Eosinophils % (Auto) 0.4 % (0.0-7.0); Granulocytes % (Auto) 88.2 % (38.0-78.0); Lymphocytes # (Auto) 0.5 K/mcL (1.5-4.8); Lymphocytes % (Auto) 7.1 % (15.5-49.0); Mean Cell Volume 93.1 fL (80.0-100.0); Mean Corpuscular HGB Conc 32.9 g/dL (31.0-36.0); Mean Corpuscular Hemoglobin 30.6 pg (26.0-34.0); Monocytes # (Auto) 0.3 K/mcL (0.1-0.9); Monocytes % (Auto) 4.3 % (1.0-12.0); Platelet Count 156 K/mcL (140-440); RBC 3.17 M/mcL (4.00-5.20); Red Cell Distribution Width 13.4 % (11.5-14.5)
[2017-09-24 06:24] LABS: ALT/SGPT 43 U/l (0-40); Albumin 3.4 gm/dL (3.2-5.2); Albumin/Globulin Ratio 1.3 (1.0-2.3); Alkaline Phosphatase 63 U/L (39-117); Bilirubin,Direct < 0.2 mg/dL (0.0-0.3); Blood Urea Nitrogen 103 mg/dl (8-23); Gamma Glutamyl Transpeptidase 61 U/L (5-36); Magnesium 2.4 mg/dL (1.6-2.5); Uric Acid 9.5 mg/dL (2.5-8.0)
[2017-09-24] MEDS ORDERED: SODIUM POLYSTYRENE SULFONATE 15 GM/60 ML SUSPENSION PO ONE (06:33)
[2017-09-24] MEDS ORDERED: 0.9 % SODIUM CHLORIDE 500 ML IV ONE (06:34)
[2017-09-24] MEDS: SPIRONOLACTONE 25 MG TABLET PO SCH (08:10)
[2017-09-24] MEDS ORDERED: FUROSEMIDE 40 MG TABLET PO SCH (09:00)
[2017-09-24] MEDS ORDERED: ENOXAPARIN 40 MG/0.4 ML SYRINGE SQ SCH (09:00)
[2017-09-24] MEDS: PARoxetine 20 MG TABLET PO SCH (09:39)
[2017-09-24] MEDS: PRAMIPEXOLE 0.25 MG TABLET PO SCH ×3 (09:40→20:55)
[2017-09-24] MEDS: CEFEPIME 1 GM VIAL IV SCH (09:43)
[2017-09-24] MEDS: methylPREDNISolone SOD SUCC 125 MG/2 ML VIAL IV SCH (09:44)
--- NOTE | 2017-09-24 10:12 | Internal Med Progress Note ---
Medical - PN: Subj Patient information: Note initiated : 09/24/17 at 10:08 am Service Date, if different from initiated Date: [] Patient: Tana Frederick a 77 y/o F admitted on 09/19/17 for Fall-R hip pain. Chief Complaint: [] Interval history: Ms. Frederick is a 77 year old Female with h/o dementia, chf, cor pulmonale, asthma, ckd, presents to the ER after a fall, The patient was Enroute to see her pcp today, her dropped her at the gate and went to park the car, on coming back he noted that the patient was sitting on the floor, with few nurses surrounding the patient. The patient does not remember what exactly happened, but noted her right hip and knee hurt. She was seen by her PCP who noted that she has a right hip fracture and was therefore sent here to the ER for further evaluation The patient admits to being short of breath, but beyond that does not report any other acute symptoms, she has pain in the right hip. but denies chest pain, no palpitations, dizziness, no headache, no gi or gu symptoms reported, she had some abdominal pain issues and was recently diagnosed with UTI and was prescribed Augmentin. The patient has poor ET, MEt around 1-3, The patient Chest x ray shows acute congestive heart failure, her head ct is negative, ua neg, she has leucocytosis on cbc, cxr is neg. The patient has severe pulmonary hypertension, cor pulmonale on last echo 2014 , she has LVH with low normal systolic function. the patient was admitted to [facility] for hip revision and medicine consulted for medical optimization Family present at bedside, son and . who gave history and are aware of patients overall poor prognosis September 20 Patient seen examined, no acute overnight events, pt doing well, no acute concerns CXR still shows congestion INR is 2.0 patient denies chest pain, or other complaints Confusion over whether the patient can have surgery here, due to her high risk status. it seems that she might end up getting the surgery here. The patients WBC count is up, procalcitonin is elevated, ? pneumonia, x ray only notes congestion, but given her age, will cover with antibiotics. The patient is very high risk for surgery, anesthesia aware, family aware. LFT uptrending, usg liver ordered. patient seen examined, post op on the vent overnight needing levophed to keep her bp up, blood culture is gpc in one bottle only (contaminant) X ray chest this AM is stable, no new infiltrates she did tolerate breathing trial well this AM with TV of 375-450, and stable ABG 7.38/60/140 of 50% fio2, peep 5 The patient is intermittently anxious and needs some ativan to help, but mental status otherwise is good, she is able to follow commands and be easily redirected so far Sep 22 Patient seen examined no acute overnight issues, tolerated bipap well this AM was given a break from bipap, which she tolerated well, abg on nc oxygen was ok, she was not placed back on bipap and has done well so far mental status good denies any complaints family by bedside. A line came out, no need for reinsertion. September 23 Patient seen examined remains off bipap, doing well, x ray stable pt has cough, but denies any other complaints afebile, vital stable slight worsening of renal function ok to transfer to med surg Sep 24 Pt seen examined no acute complaints, tolerating po diet well no resp distress and has not needed bipap labs show worsening renal function. Pertinent ROS: Denies headache, dizziness Denies chest pain, palpitations Denies cough or shortness of breath Denies abdominal pain, nausea or vomiting. - Constitutional Vitals: Vital Signs Temp Pulse Resp BP Pulse Ox 97.8 F 80 18 108/62 97 09/24/17 07:43 09/24/17 07:43 09/24/17 07:43 09/24/17 07:43 09/24/17 07:43 Period Temp Pulse Resp BP Sys/Roca Pulse Ox Last 24 Hr 97.2 F-98.0 F 70-125 16-24 108-132/62-80 79-98 Intake and Output 09/23/17 09/24/17 09/24/17 21:59 05:59 13:59 Intake Total 540 / 540 450 / 450 480 / 480 Output Total 950 / 950 575 / 575 250 / 250 Balance -410 / -410 -125 / -125 230 / 230 Weight 222 lb 3.2 oz Intake & Output: Intake & Output 09/23/17 09/24/17 09/24/17 21:59 05:59 13:59 Intake Total 540 / 540 450 / 450 480 / 480 Output Total 950 / 950 575 / 575 250 / 250 Balance -410 / -410 -125 / -125 230 / 230 Weight 222 lb 3.2 oz Intake: IV 100 / 100 100 / 100 Oral 440 / 440 350 / 350 480 / 480 Output: Urine Catheter Amount 950 / 950 575 / 575 250 / 250 Exam: Constitutional; Afebrile, cooperative, alert, not in distress. Eyes- No icterus, , No periorbital swelling Ears- Ext ear normal, hearing normal to conversation. Neck- Midline trachea, supple Respiratory system: Air Entry equal on both sides, prolonged exp phase, no resp distress. CVS- Rate rhythm irregular, S1,S2 heard, no gallop, no rub. Abdomen- Soft nontender abdomen, no organomegaly, no tenderness, no guarding or rigidity, [employer]- AOOx2, moving all extremities, no gross focal deficit noted. Medical - PN: Obj Da - Labs CBC & Chem 7: 09/24/17 04:00 09/24/17 04:00 Labs: Abnormal Lab Results 09/24/17 09/24/17 09/24/17 04:00 04:00 04:00 RBC 3.17 L Hgb 9.7 L Hct 29.5 L Plt Count Gran % 88.2 H Lymph % (Auto) 7.1 L Lymph # (Auto) 0.5 L PT 22.2 H INR 1.9 H Potassium 5.4 H BUN 103 H* Creatinine 2.2 H Glucose 157 H Uric Acid 9.5 H Phosphorus 4.8 H Magnesium GGT 61 H AST ALT 43 H Lactate Dehydrogenase 275 H Total Protein Albumin 09/23/17 09/23/17 09/23/17 03:45 03:45 03:45 RBC 2.84 L Hgb 8.8 L Hct 26.6 L Plt Count 115 L Gran % 93.1 H Lymph % (Auto) 4.0 L Lymph # (Auto) 0.3 L PT 19.0 H INR 1.5 H Potassium BUN 89 H Creatinine 1.9 H Glucose 145 H Uric Acid 9.1 H Phosphorus 5.0 H Magnesium 2.6 H GGT 53 H AST ALT 45 H Lactate Dehydrogenase Total Protein 5.5 L Albumin 09/22/17 09/22/17 09/22/17 04:00 04:00 04:00 RBC 3.00 L Hgb 9.3 L Hct 28.0 L Plt Count 116 L Gran % 93.5 H Lymph % (Auto) 3.4 L Lymph # (Auto) 0.3 L PT 16.6 H INR 1.3 H Potassium BUN 79 H Creatinine 2.0 H Glucose 147 H Uric Acid 8.3 H Phosphorus 5.0 H Magnesium GGT 60 H AST 38 H ALT 70 H Lactate Dehydrogenase Total Protein 5.5 L Albumin 2.9 L Meds: Medications Acetaminophen (Tylenol) 650 mg PO Q6HP PRN PRN Reason: PAIN/FEVER > 101 Last Admin: 09/24/17 03:55 Dose: 650 mg Albuterol/Ipratropium (Duoneb) 3 ml NEB Q4HRT [facility] Last Admin: 09/24/17 07:08 Dose: 3 ml Cefepime HCl (Maxipime) 1 gm IV DAILY [facility] Last Admin: 09/24/17 09:43 Dose: 1 gm Donepezil HCl (Aricept) 10 mg PO HS [facility] Last Admin: 09/23/17 21:28 Dose: 10 mg Enoxaparin Sodium (Lovenox) 40 mg SQ DAILY [facility] Last Admin: 09/24/17 09:43 Dose: 40 mg Famotidine (Pepcid) 20 mg IV HS [facility] Last Admin: 09/23/17 21:28 Dose: 20 mg Furosemide (Lasix) 40 mg PO HS [facility] Last Admin: 09/23/17 21:28 Dose: 40 mg Furosemide (Lasix) 80 mg PO DAILY [facility] Last Admin: 09/24/17 08:11 Dose: Not Given Metronidazole (Flagyl) 500 mg in 100 mls @ 100 mls/hr IV Q8H [facility] Last Admin: 09/24/17 05:28 Dose: 100 mls/hr Acetaminophen (Ofirmev) 1,000 mg in 100 mls @ 200 mls/hr IV Q6HP PRN PRN Reason: PAIN/FEVER > 101 Sodium Chloride (Sodium Chloride 0.9%) 500 mls @ 100 mls/hr IV ONCE ONE PRN Reason: As Directed Stop: 09/24/17 11:33 Last Admin: 09/24/17 08:10 Dose: 100 mls/hr Lorazepam (Ativan) 1 - 2 mg IV Q2HP PRN PRN Reason: ANXIETY/SEDATION Methylprednisolone Sodium Succinate (Solu-Medrol) 62.5 mg IV DAILY [facility] Last Admin: 09/24/17 09:44 Dose: 62.5 mg Morphine Sulfate (Morphine) 2 - 4 mg IV Q2HP PRN PRN Reason: Pain Naloxone HCl (Narcan) 0.1 mg IV Q2MIN PRN PRN Reason: Opiate Reversal Ondansetron HCl (Zofran) 4 mg IV Q4HP PRN PRN Reason: Nausea And Vomiting Paroxetine HCl (Paxil) 10 mg PO DAILY [facility] Last Admin: 09/24/17 09:39 Dose: 10 mg Polyethylene Glycol (Miralax) 17 gm PO HSP PRN PRN Reason: Constipation Pramipexole Dihydrochloride (Mirapex) 0.125 mg PO TID [facility] Last Admin: 09/24/17 09:40 Dose: 0.125 mg Simvastatin (Zocor) 5 mg PO HS [facility] Last Admin: 09/23/17 21:28 Dose: 5 mg Sodium Chloride (Saline Flush) 10 ml IV UD PRN PRN Reason: FLUSH Sodium Chloride (Saline Flush) 10 ml IV Q8 [facility] Last Admin: 09/24/17 05:27 Dose: 10 ml Spironolactone (Aldactone) 50 mg PO BID [facility] Last Admin: 09/24/17 08:10 Dose: Not Given Vancomycin HCl (Vancomycin Per Pharmacy) 1 order IV UD [facility] Warfarin Sodium (Coumadin Per Pharmacy) 1 order PO [facility] Medical - PN: A/P - Time Spent With Patient Total time spent is greater than 50% in coordination of care (as documented) at patient's floor/unit and/or counseling patient: - Narrative A/P Narrative: A/P Hip fracture:s/p surgery, I am not sure if he has done any post op evaluations to evaluate surgical wound. I have not see any note in the chart to that regard , Acute respiratory failure - due to asthma , chf, pna , off bipap now, tolerated very well. Pneumonia, on vanco, cefepime, flagyl continue same, will need total of 5-7 days of abx based on response congestive Heart failure / Cor pulmonale / Severe pulm htn: monitor closely for fluid overload. hold AM diuretics today in light of worsening renal failure and pt being neg 1700ml since admission. P Acute on chr renal faiilure: Nephrology consulted, hold am meds, give 500 cc gentle hydration and reassess HTN/ HLD : Home meds resumed, pt tolerating well so far Acute Asthma exacerbation- on steroids and duonebs and antibiotics, doing well Dementia- stalbe on home meds. Abnl LFT- trending down, monitor, liver usg does not show any obstrctive etiology. hyperkalemia- treat medically Full code for now advance diet Full code. Medical - PN: Qual - VTE Deep Vein Thrombosis/Pulmonary Embolism Present on Admission: No
[2017-09-24] MEDS ORDERED: WARFARIN 5 MG TABLET PO ONE (14:00)
--- NOTE | 2017-09-24 15:53 | Orthopedic Progress Note ---
Subjective Patient information: Note initiated : 09/24/17 at 3:50 pm Service Date, if different from initiated Date: [] Patient: Tana Frederick 77 y/o F admitted on 09/19/17 for Fall-R hip pain. Chief Complaint: [] Principal diagnosis: s/p R hip hemiarthroplasty for femoral neck fracture Interval history: pt awake and appropriate, pain minimal Objective Vital signs: Vital Signs Temp Pulse Pulse Resp BP BP Pulse Ox 09/24/17 14:54 96 09/24/17 14:30 84 16 09/24/17 11:32 98.3 F 94 H 20 135/72 95 09/24/17 11:30 80 18 09/24/17 07:43 97.8 F 80 18 108/62 97 09/24/17 07:14 80 18 09/24/17 07:13 75 18 96 09/24/17 03:00 97.4 F 70 16 124/70 96 09/23/17 23:25 97.2 F 95 H 16 117/69 97 09/23/17 22:52 86 16 09/23/17 20:00 97.7 F 95 H 16 113/66 95 09/23/17 19:35 97 09/23/17 19:05 92 H 16 09/23/17 19:00 97 09/23/17 16:00 98.0 F 82 24 H 132/80 95 Intake and Output 09/24/17 09/24/17 09/24/17 05:59 13:59 21:59 Intake Total 450 / 450 1620 / 1620 Output Total 575 / 575 550 / 550 Balance -125 / -125 1070 / 1070 Intake: IV 100 / 100 100 / 100 Oral 350 / 350 1520 / 1520 Output: Urine Catheter Amount 575 / 575 550 / 550 Other: Meal Breakfast Percent of Meal Consumed 100% Feeding Ability Independent Intake & Output: Intake & Output 09/24/17 09/24/17 09/24/17 05:59 13:59 21:59 Intake Total 450 / 450 1620 / 1620 Output Total 575 / 575 550 / 550 Balance -125 / -125 1070 / 1070 Intake: IV 100 / 100 100 / 100 Oral 350 / 350 1520 / 1520 Output: Urine Catheter Amount 575 / 575 550 / 550 Other: Meal Breakfast Percent of Meal Consumed 100% Feeding Ability Independent Incision: Yes draining (sanguinous per nursing, reinforced dressing clean and dry) - Labs CBC & BMP: 09/24/17 04:00 09/24/17 04:00 Labs: Orthopedic Labs 09/24/17 09/23/17 09/22/17 04:00 03:45 04:00 PT 22.2 H 19.0 H 16.6 H INR 1.9 H 1.5 H 1.3 H APTT 09/21/17 09/20/17 09/20/17 04:00 12:58 03:33 PT 17.1 H 20.2 H 23.7 H INR 1.4 H 1.7 H 2.0 H APTT 09/19/17 16:18 PT 30.0 H INR 2.7 H APTT 44 H 09/24/17 09/23/17 09/22/17 04:00 03:45 04:00 Hgb 9.7 L 8.8 L 9.3 L Hct 29.5 L 26.6 L 28.0 L 09/21/17 09/20/17 09/19/17 04:00 03:33 16:18 Hgb 10.8 L 13.0 12.5 Hct 32.7 L 39.5 37.9 Assessment and Plan (1) Hip fracture, right POD#4 s/p R hip hemiarthroplasty for femoral neck fx-incision still draining, minimal pain -continue to monitor wound, consider wound vac if drainage not decreasing -mobilize as possible Status: Acute Qualifiers: Encounter type: initial encounter Fracture type: closed Qualified Code(s) : S72.001A - Fracture of unspecified part of neck of right femur, initial encounter for closed fracture
--- NOTE | 2017-09-24 16:33 | History and Physical Report ---
DATE OF ADMISSION: 09/19/2017 CHIEF COMPLAINT: Right hip pain after a fall. HISTORY: This is a 77-year-old female with dementia and multiple medical comorbidities who was going to see her primary care at [facility], and apparently her dropped her off at the front door and went to park the car, and when he returned she was on the floor surrounded by nurses. The patient did not recall what happened but complained of hip pain and inability to bear weight. She was taken inside and x-rays taken and found to have a femoral neck fracture. She was then transferred to [facility] Emergency Room where I was consulted by the emergency room physician. PAST MEDICAL HISTORY: Congestive heart failure, chronic kidney disease, morbid obesity, atrial fibrillation, dementia and diabetes mellitus. PAST SURGICAL HISTORY: Likely extensive, but she has had a total knee arthroplasty done by me in the past. MEDICATIONS: 1. Lasix. 2. Simvastatin. 3. Coumadin. 4. Polyethylene glycol. 5. Aldactone. 6. Aricept. 7. Paroxetine. 8. Mirapex. 9. Phenergan. ALLERGIES: 1. ZOLPIDEM. 2. BACITRACIN. 3. MOXIFLOXACIN. 4. SULFA. SOCIAL HISTORY: She lives with her . No smoking or alcohol use. FAMILY HISTORY: Not contributory. PHYSICAL EXAMINATION: VITAL SIGNS ON ADMISSION: Temperature 99.7, pulse 85, respirations 20, blood pressure 137/60, pulse ox 94%. GENERAL: She appeared her stated age in no acute distress. She is oriented to person. Mood is normal for age and dementia. EXTREMITIES: Her right lower extremity shows tenderness to palpation. She has limited range of motion secondary to pain. There is gross instability at the fracture site. Her strength is about 2/5 with movement. Her sensation to light touch is grossly intact. Pedal pulse is weakly palpable at the posterior tibia. Her left lower extremity and bilateral upper extremities showed no obvious evidence of injury and are normal to inspection, range of motion, stability and strength. IMAGING: X-rays reviewed show a displaced midcervical femoral neck fracture. IMPRESSION: Right closed midcervical femoral neck fracture that is displaced in a 77-year-old female who has dementia but was previously ambulatory and who is high risk for medical complications. PLAN: I recommended that the hospitalists admit the patient and get her prepared for possible surgical intervention. If cleared by Anesthesia and Hospitalist, then I would proceed with a right hip hemiarthroplasty. LUCY:horacio Job ID: [id number] Doc ID: [id number] Valeriano Banegas MD
[2017-09-24] MEDS: FAMOTIDINE/PF 20 MG/2 ML VIAL IV SCH (20:54)
[2017-09-24] MEDS: SIMVASTATIN 10 MG TABLET PO SCH (20:55)
[2017-09-24] MEDS: DONEPEZIL 10 MG TABLET PO SCH (20:56)
--- NOTE | 2017-09-24 22:25 | Consultation ---
DATE OF CONSULTATION: 09/24/2017 REASON FOR CONSULTATION: Acute kidney injury. REFERRING PHYSICIAN: Amie Paz MD. HISTORY OF PRESENT ILLNESS: The patient is a 77-year-old female with past medical history significant for chronic kidney disease with a baseline creatinine around 1.2 to 2.0, but she has significantly elevated BUN, primarily because of diuresis, cor pulmonale, bronchial asthma, who presented to the emergency room when she fell and sustained a fracture of her right hip. The patient had surgery and recovered from it without any significant problems except that her BUN and creatinine have gotten slightly worse since hospitalization. She also had mild confusion and is starting to do better now. PAST MEDICAL HISTORY: 1. Chronic congestive heart failure, primarily in the form of cor pulmonale with right ventricular hypertrophy and increased pulmonary artery pressure. 2. Recurrent urinary tract infections. 3. Chronic kidney disease stage 3 with significant variation in BUN and creatinine levels depending upon the volume status on diuretics. 4. History of chronic anticoagulation. 5. Dementia. 6. Chronic atrial fibrillation on anticoagulation. 7. Diabetes mellitus. PAST SURGICAL HISTORY: She has history of pericardial window and right total knee replacement. SOCIAL HISTORY: The patient lives with her . Denies any history of smoking, alcohol or drug use. FAMILY HISTORY: Noncontributory. MEDICATIONS ON ADMISSION: Lasix 80 mg twice daily, but changes periodically. Coumadin as per INR. Zocor 5 mg at night. B12 500 mcg once daily. Polyethylene glycol 119 grams by mouth daily. Spironolactone 50 mg twice daily. Aricept 10 mg at night. Paxil 10 mg daily. Mirapex 0.125 mg 3 times daily. Phenergan as needed. ALLERGIES: She is allergic to ZOLPIDEM, BACITRACIN, MOXIFLOXACIN, SOY BEANS, and SULFA ANTIBIOTICS. REVIEW OF SYSTEMS: Ten systems were reviewed and as indicated in history of present illness. PHYSICAL EXAMINATION: GENERAL: Alert, oriented times 3, not in any distress. VITAL SIGNS: Blood pressures are 135/72 with a pulse rate of 93, respiratory rate of 20 and T-max of 98.3. I's and O's: She had 1000 in and 1000 out, but yesterday she had 984 in 984 out. She is slightly positive on admission but has been negative the last several days. HEENT: No pallor, no cyanosis, and no icterus. Fundus examination is not performed. External auditory canal and tympanic membrane appears normal. Oral cavity appears normal with normal mucosa. NECK: Supple. No jugular venous distention. No lymphadenopathy. No thyromegaly. No carotid bruits. LUNGS: Decreased air entry bilaterally. Rhonchi heard but no rales. CARDIAC: S1, S2 heard. No S3, S4. irregular. ABDOMEN: Soft, nontender. No organomegaly. Positive bowel sounds. No mass. No rebound. EXTREMITIES: Did not show any evidence of edema. She has chronic stasis changes. LABORATORY DATA: White count is 6.9 with a hemoglobin of 9.7 and a platelet count of 156. Sodium 135, potassium 5.4, chloride of 96, CO2 of 23, BUN of 103, creatinine of 2.2. On admission, her BUN was 71 with a creatinine of 1.8. Uric acid is 9.5, phosphorus is 4.8. ASSESSMENT AND PLAN: Acute kidney injury, probably related to volume changes. She has a Godwin catheter. Her BUN is significantly higher than her creatinine with a larger ratio suggesting that it is all prerenal. I think most of it should be related to the diuretics. Her hemoglobin has dropped a little bit and that raises the possibility that she has blood in the gastrointestinal system, but there has been no evidence of bleeding. She received 500 mL of saline today. I do think that she will be okay to have the diuretics held for a few days and recheck the chemistries. I will be happy to follow as an outpatient if needed. I discussed the case with the hospitalist who is special education teacher in person. JENNIFER:jazzy Job ID: [id number] Doc ID: [id number] Stevo Elizabeth MD [facility]ENTER[facility]i
[2017-09-25] MEDS: IPRATROPIUM/ALBUTEROL 3 ML AMPUL.NEB NEB SCH ×2 (03:24→07:31)
[2017-09-25 05:30] LABS: Basophils # (Auto) 0 K/mcL (0.0-0.3); Basophils % (Auto) 0.2 % (0.0-2.0); Eosinophils # (Auto) 0 K/mcL (0.0-0.7); Eosinophils % (Auto) 0 % (0.0-7.0); Granulocytes % (Auto) 83.9 % (38.0-78.0); Lymphocytes # (Auto) 0.5 K/mcL (1.5-4.8); Lymphocytes % (Auto) 7.8 % (15.5-49.0); Mean Corpuscular HGB Conc 33.3 g/dL (31.0-36.0); Mean Corpuscular Hemoglobin 30.9 pg (26.0-34.0); Monocytes # (Auto) 0.5 K/mcL (0.1-0.9); Monocytes % (Auto) 8.1 % (1.0-12.0); Platelet Count 138 K/mcL (140-440); RBC 2.82 M/mcL (4.00-5.20); Red Cell Distribution Width 12.9 % (11.5-14.5)
[2017-09-25] MEDS: metroNIDAZOLE 500 MG/100 ML BAG IV SCH (06:54)
[2017-09-25] MEDS: 0.9 % SODIUM CHLORIDE 10 ML SYRINGE IV SCH ×3 (06:55→20:50)
[2017-09-25 07:06] LABS: ALT/SGPT 37 U/l (0-40); Albumin 3.1 gm/dL (3.2-5.2); Albumin/Globulin Ratio 1.3 (1.0-2.3); Alkaline Phosphatase 52 U/L (39-117); Bilirubin,Direct < 0.2 mg/dL (0.0-0.3); Blood Urea Nitrogen 103 mg/dl (8-23); Gamma Glutamyl Transpeptidase 52 U/L (5-36); Magnesium 2.3 mg/dL (1.6-2.5); Uric Acid 9.2 mg/dL (2.5-8.0)
[2017-09-25] MEDS: PRAMIPEXOLE 0.25 MG TABLET PO SCH ×4 (07:20→20:50)
[2017-09-25] MEDS: PARoxetine 20 MG TABLET PO SCH ×2 (07:21→08:57)
[2017-09-25] MEDS: methylPREDNISolone SOD SUCC 125 MG/2 ML VIAL IV SCH (09:00)
--- NOTE | 2017-09-25 09:04 | Nephrology Progress Note ---
Subjective Patient information: Note initiated : 09/25/17 at 9:02 am Service Date, if different from initiated Date: [] Patient: Tana Frederick 77 y/o F admitted on 09/19/17 for Fall-R hip pain. Chief Complaint: [] She feels ok. Breathing has been ok. Still weak. Principal diagnosis: s/p R hip hemiarthroplasty for femoral neck fracture Objective - Vital Signs Vital signs: Vital Signs Temp Pulse Pulse Pulse Resp BP BP 09/25/17 08:29 100 H 14 09/25/17 08:00 98.2 F 100 H 14 107/72 09/25/17 07:32 106 H 18 09/25/17 04:00 97.9 F 100 H 18 127/87 09/24/17 23:02 97.6 F 88 20 105/65 09/24/17 20:00 98.2 F 101 H 20 122/64 09/24/17 19:06 84 18 09/24/17 16:00 98.5 F 97 H 18 114/74 09/24/17 14:54 09/24/17 14:30 84 16 09/24/17 11:32 98.3 F 94 H 20 135/72 09/24/17 11:30 80 18 Pulse Ox 09/25/17 08:29 09/25/17 08:00 92 09/25/17 07:32 98 09/25/17 04:00 97 09/24/17 23:02 94 09/24/17 20:00 95 09/24/17 19:06 95 09/24/17 16:00 97 09/24/17 14:54 96 09/24/17 14:30 09/24/17 11:32 95 09/24/17 11:30 Intake and Output 09/24/17 09/25/17 09/25/17 21:59 05:59 13:59 Intake Total 840 / 840 600 / 600 Output Total 900 / 900 Balance 840 / 840 -300 / -300 Intake: IV 600 / 600 100 / 100 Oral 240 / 240 500 / 500 Output: Urine Catheter Amount 900 / 900 Other: Meal Dinner Percent of Meal Consumed 75% Feeding Ability Independent # Bowel Movements 1 Weight 219 lb Intake & Output: Intake & Output 09/24/17 09/25/17 09/25/17 21:59 05:59 13:59 Intake Total 840 / 840 600 / 600 Output Total 900 / 900 Balance 840 / 840 -300 / -300 Weight 219 lb Intake: IV 600 / 600 100 / 100 Oral 240 / 240 500 / 500 Output: Urine Catheter Amount 900 / 900 Other: Meal Dinner Percent of Meal Consumed 75% Feeding Ability Independent # Bowel Movements 1 - General Appearance General appearance: well-developed, well-nourished EENT: ATNC Neck: no JVD Respiratory: no kyphosis Cardiology: no murmurs, irregular rhythm Gastrointestinal: normoactive bowel sounds Musculoskeletal: no clubbing - Lab 09/25/17 04:10 09/25/17 04:10 Most recent lab results Calcium 8.5 mg/dl (8.6-10.4) L 09/25/17 04:10 Phosphorus 5.0 mg/dL (2.7-4.5) H 09/25/17 04:10 Magnesium 2.3 mg/dL (1.6-2.5) 09/25/17 04:10 Assessment and Plan (1) Chronic kidney disease (CKD), stage III (moderate) Status: Acute Comment: Has volume depletion from diuretics. Cr. is better but BUN is the same. Stool guiacs. Continue to hold diuretics for now.
[2017-09-25] MEDS: CEFEPIME 1 GM VIAL IV SCH (09:14)
[2017-09-25] MEDS: ACETAMINOPHEN 325 MG TABLET PO PRN (11:36)
--- NOTE | 2017-09-25 13:30 | Internal Med Progress Note ---
Medical - PN: Subj Patient information: Note initiated : 09/25/17 at 1:27 pm Service Date, if different from initiated Date: [] Patient: Tana Frederick a 77 y/o F admitted on 09/19/17 for Fall-R hip pain. Chief Complaint: [] Interval history: Ms. Frederick is a 77 year old Female with h/o dementia, chf, cor pulmonale, asthma, ckd, presents to the ER after a fall, The patient was Enroute to see her pcp today, her dropped her at the gate and went to park the car, on coming back he noted that the patient was sitting on the floor, with few nurses surrounding the patient. The patient does not remember what exactly happened, but noted her right hip and knee hurt. She was seen by her PCP who noted that she has a right hip fracture and was therefore sent here to the ER for further evaluation The patient admits to being short of breath, but beyond that does not report any other acute symptoms, she has pain in the right hip. but denies chest pain, no palpitations, dizziness, no headache, no gi or gu symptoms reported, she had some abdominal pain issues and was recently diagnosed with UTI and was prescribed Augmentin. The patient has poor ET, MEt around 1-3, The patient Chest x ray shows acute congestive heart failure, her head ct is negative, ua neg, she has leucocytosis on cbc, cxr is neg. The patient has severe pulmonary hypertension, cor pulmonale on last echo 2014 , she has LVH with low normal systolic function. the patient was admitted to [facility] for hip revision and medicine consulted for medical optimization Family present at bedside, son and . who gave history and are aware of patients overall poor prognosis September 20 Patient seen examined, no acute overnight events, pt doing well, no acute concerns CXR still shows congestion INR is 2.0 patient denies chest pain, or other complaints Confusion over whether the patient can have surgery here, due to her high risk status. it seems that she might end up getting the surgery here. The patients WBC count is up, procalcitonin is elevated, ? pneumonia, x ray only notes congestion, but given her age, will cover with antibiotics. The patient is very high risk for surgery, anesthesia aware, family aware. LFT uptrending, usg liver ordered. patient seen examined, post op on the vent overnight needing levophed to keep her bp up, blood culture is gpc in one bottle only (contaminant) X ray chest this AM is stable, no new infiltrates she did tolerate breathing trial well this AM with TV of 375-450, and stable ABG 7.38/60/140 of 50% fio2, peep 5 The patient is intermittently anxious and needs some ativan to help, but mental status otherwise is good, she is able to follow commands and be easily redirected so far Sep 22 Patient seen examined no acute overnight issues, tolerated bipap well this AM was given a break from bipap, which she tolerated well, abg on nc oxygen was ok, she was not placed back on bipap and has done well so far mental status good denies any complaints family by bedside. A line came out, no need for reinsertion. September 23 Patient seen examined remains off bipap, doing well, x ray stable pt has cough, but denies any other complaints afebile, vital stable slight worsening of renal function ok to transfer to med surg Sep 24 Pt seen examined no acute complaints, tolerating po diet well no resp distress and has not needed bipap labs show worsening renal function. Sep 25 Feeling better today although slightly SOB on RA. Resolved when placed on home O2. Hip dressing saturated yesterday. Per Dr. Banegas's note, may need wound vac if continues to bleed. Still has Godwin; will DC today. D/W Dr. Elizabeth yesterday. Keep off diuretics; mostly has R sided heart failure. Edema may be problem but less likely to have hypoxia. Needs BMP one week post DC. Still weak. Pertinent ROS: no fever or nausea - Constitutional Vitals: Vital Signs Temp Pulse Resp BP Pulse Ox 99.2 F H 100 H 14 124/78 92 09/25/17 11:52 09/25/17 11:52 09/25/17 11:52 09/25/17 11:52 09/25/17 08:00 Period Temp Pulse Resp BP Sys/Roca Pulse Ox Last 24 Hr 97.6 F-99.2 F 84-106 14-20 105-127/64-87 92-98 Intake and Output 09/24/17 09/25/17 09/25/17 21:59 05:59 13:59 Intake Total 840 / 840 600 / 600 100 / 100 Output Total 900 / 900 850 / 850 Balance 840 / 840 -300 / -300 -750 / -750 Weight 219 lb General: NAD, slightly tremulous after getting back in bed. She is not wearing her nasal cannula and feels tired. HEENT: No scleral icterus. Normal suck H traumatic CV: Irregularly irregular. No murmurs rubs or gallops Respiratory: Lungs are clear to auscultation bilaterally. Low work of breathing. Abdomen: Soft, nondistended, nontender. Hypoactive bowel tones Extremities: Her right hip dressing is clean, dry and intact. Neuro: Alert and oriented 2; states the year is 2006. No focal motor or sensory deficits. Intake & Output: Intake & Output 09/24/17 09/25/17 09/25/17 21:59 05:59 13:59 Intake Total 840 / 840 600 / 600 100 / 100 Output Total 900 / 900 850 / 850 Balance 840 / 840 -300 / -300 -750 / -750 Weight 219 lb Intake: IV 600 / 600 100 / 100 Oral 240 / 240 500 / 500 100 / 100 Output: Urine Catheter Amount 900 / 900 850 / 850 Other: Meal Dinner Breakfast Percent of Meal Consumed 75% 75% Feeding Ability Independent Independent # Bowel Movements 1 Medical - PN: Obj Da - Labs CBC & Chem 7: 09/25/17 04:10 09/25/17 04:10 Labs: Abnormal Lab Results 09/25/17 09/25/17 09/25/17 04:10 04:10 04:10 RBC 2.82 L Hgb 8.7 L Hct 26.2 L Plt Count 138 L Gran % 83.9 H Lymph % (Auto) 7.8 L Lymph # (Auto) 0.5 L PT 31.9 H INR 3.0 H Potassium BUN 103 H* Creatinine 2.0 H Glucose 150 H Uric Acid 9.2 H Calcium 8.5 L Phosphorus 5.0 H Magnesium GGT 52 H ALT Lactate Dehydrogenase 267 H Total Protein 5.4 L Albumin 3.1 L 09/24/17 09/24/17 09/24/17 04:00 04:00 04:00 RBC 3.17 L Hgb 9.7 L Hct 29.5 L Plt Count Gran % 88.2 H Lymph % (Auto) 7.1 L Lymph # (Auto) 0.5 L PT 22.2 H INR 1.9 H Potassium 5.4 H BUN 103 H* Creatinine 2.2 H Glucose 157 H Uric Acid 9.5 H Calcium Phosphorus 4.8 H Magnesium GGT 61 H ALT 43 H Lactate Dehydrogenase 275 H Total Protein Albumin 09/23/17 09/23/17 09/23/17 03:45 03:45 03:45 RBC 2.84 L Hgb 8.8 L Hct 26.6 L Plt Count 115 L Gran % 93.1 H Lymph % (Auto) 4.0 L Lymph # (Auto) 0.3 L PT 19.0 H INR 1.5 H Potassium BUN 89 H Creatinine 1.9 H Glucose 145 H Uric Acid 9.1 H Calcium Phosphorus 5.0 H Magnesium 2.6 H GGT 53 H ALT 45 H Lactate Dehydrogenase Total Protein 5.5 L Albumin Meds: Medications Acetaminophen (Tylenol) 650 mg PO Q6HP PRN PRN Reason: PAIN/FEVER > 101 Last Admin: 09/25/17 11:36 Dose: 650 mg Albuterol/Ipratropium (Duoneb) 3 ml NEB Q4HP PRN PRN Reason: Shortness Of Breath Or Wheezing Cefepime HCl (Maxipime) 1 gm IV DAILY [facility] Last Admin: 09/25/17 09:14 Dose: 1 gm Donepezil HCl (Aricept) 10 mg PO HS [facility] Last Admin: 09/24/17 20:56 Dose: 10 mg Famotidine (Pepcid) 20 mg IV HS [facility] Last Admin: 09/24/17 20:54 Dose: 20 mg Metronidazole (Flagyl) 500 mg in 100 mls @ 100 mls/hr IV Q8H [facility] Last Admin: 09/25/17 06:54 Dose: 100 mls/hr Acetaminophen (Ofirmev) 1,000 mg in 100 mls @ 200 mls/hr IV Q6HP PRN PRN Reason: PAIN/FEVER > 101 Lorazepam (Ativan) 1 - 2 mg IV Q2HP PRN PRN Reason: ANXIETY/SEDATION Methylprednisolone Sodium Succinate (Solu-Medrol) 62.5 mg IV DAILY [facility] Last Admin: 09/25/17 09:00 Dose: 62.5 mg Morphine Sulfate (Morphine) 2 - 4 mg IV Q2HP PRN PRN Reason: Pain Naloxone HCl (Narcan) 0.1 mg IV Q2MIN PRN PRN Reason: Opiate Reversal Ondansetron HCl (Zofran) 4 mg IV Q4HP PRN PRN Reason: Nausea And Vomiting Paroxetine HCl (Paxil) 10 mg PO DAILY [facility] Last Admin: 09/25/17 08:57 Dose: 10 mg Polyethylene Glycol (Miralax) 17 gm PO HSP PRN PRN Reason: Constipation Pramipexole Dihydrochloride (Mirapex) 0.125 mg PO TID [facility] Last Admin: 09/25/17 08:55 Dose: 0.125 mg Simvastatin (Zocor) 5 mg PO HS [facility] Last Admin: 09/24/17 20:55 Dose: 5 mg Sodium Chloride (Saline Flush) 10 ml IV UD PRN PRN Reason: FLUSH Sodium Chloride (Saline Flush) 10 ml IV Q8 [facility] Last Admin: 09/25/17 06:55 Dose: 10 ml Vancomycin HCl (Vancomycin Per Pharmacy) 1 order IV UD [facility] Warfarin Sodium (Coumadin Per Pharmacy) 1 order PO UD [facility] Medical - PN: A/P - Time Spent With Patient Total time spent is greater than 50% in coordination of care (as documented) at patient's floor/unit and/or counseling patient: Greater than 35 minutes - Narrative A/P Narrative: A/P Hip fracture:s/p surgery 09/[address] Banegas. Has had saturated dressing yesterday. May need wound vac if continues. If OK with ortho, likely will DC tomorrow to SNF. DC Godwin Acute on chronic hypoxic respiratory failure - due to asthma , chf, pna , off bipap now, tolerated very well. Cont home 2L NC. CAP--question of infiltrate seen on CXR in setting of leukocytosis. Started on vanco, cefepime, flagyl 09/20. Now s/p 6 days of IV ABx. Will DC today. DC CVC on discharge. congestive Heart failure / Cor pulmonale / Severe pulm htn: monitor closely for fluid overload. Cont to hold diuretics in setting of BUN 103. D/W Dr. Elizabeth . Appreciate nephrology input. Acute on chr renal failure: Nephrology following A fib, on chronic warfarin: INR 3.0 today. Will discuss with pharmacy dosing in preparation for DC tomorrow. HTN/ HLD : Home meds resumed, pt tolerating well so far Acute Asthma exacerbation- on steroids and duonebs and antibiotics, doing well.Transition from IV steroids to prednisone. Dementia- stable on home meds. Abnl LFT- trending down, monitor, liver us does not show any obstructive etiology. hyperkalemia- treated medically; now resolved advance diet Full code. Dispo: Likely to SNF tomorrow if OK with Dr. Banegas. Medical - PN: Qual - VTE Deep Vein Thrombosis/Pulmonary Embolism Present on Admission: No
[2017-09-25] MEDS: SIMVASTATIN 10 MG TABLET PO SCH (20:50)
[2017-09-25] MEDS: FAMOTIDINE/PF 20 MG/2 ML VIAL IV SCH (20:50)
[2017-09-25] MEDS: DONEPEZIL 10 MG TABLET PO SCH (20:50)
[2017-09-26] MEDS: 0.9 % SODIUM CHLORIDE 10 ML SYRINGE IV SCH ×3 (05:30→21:20)
[2017-09-26 05:39] LABS: Basophils # (Auto) 0 K/mcL (0.0-0.3); Basophils % (Auto) 0 % (0.0-2.0); Eosinophils # (Auto) 0 K/mcL (0.0-0.7); Eosinophils % (Auto) 0.1 % (0.0-7.0); Granulocytes % (Auto) 84.7 % (38.0-78.0); Lymphocytes # (Auto) 0.5 K/mcL (1.5-4.8); Lymphocytes % (Auto) 6.2 % (15.5-49.0); Mean Cell Volume 93.4 fL (80.0-100.0); Mean Corpuscular HGB Conc 33.1 g/dL (31.0-36.0); Mean Corpuscular Hemoglobin 30.9 pg (26.0-34.0); Monocytes # (Auto) 0.7 K/mcL (0.1-0.9); Platelet Count 149 K/mcL (140-440); Red Cell Distribution Width 12.9 % (11.5-14.5)
[2017-09-26 05:55] LABS: ALT/SGPT 32 U/l (0-40); Albumin/Globulin Ratio 1.3 (1.0-2.3); Alkaline Phosphatase 51 U/L (39-117); Bilirubin,Direct < 0.2 mg/dL (0.0-0.3); Blood Urea Nitrogen 99 mg/dl (8-23); Gamma Glutamyl Transpeptidase 49 U/L (5-36); Magnesium 2.3 mg/dL (1.6-2.5); Uric Acid 9.5 mg/dL (2.5-8.0)
[2017-09-26] MEDS: PRAMIPEXOLE 0.25 MG TABLET PO SCH ×3 (09:25→21:17)
[2017-09-26] MEDS: predniSONE 20 MG TABLET PO SCH (09:25)
[2017-09-26] MEDS: PARoxetine 20 MG TABLET PO SCH (09:26)
[2017-09-26] MEDS: ACETAMINOPHEN 325 MG TABLET PO PRN (10:28)
[2017-09-26] MEDS ORDERED: WARFARIN 4 MG TABLET PO ONE (14:00)
[2017-09-26] MEDS: 0.9 % SODIUM CHLORIDE 10 ML SYRINGE IV PRN ×2 (14:58→21:21)
[2017-09-26] MEDS: HYDROcodone/APAP 5/325MG TABLET PO PRN (14:58)
--- NOTE | 2017-09-26 16:37 | Internal Med Progress Note ---
Medical - PN: Subj Patient information: Note initiated : 09/26/17 at 4:32 pm Service Date, if different from initiated Date: [] Patient: Tana Frederick a 77 y/o F admitted on 09/19/17 for Fall-R hip pain. Chief Complaint: [] Interval history: Ms. Frederick is a 77 year old Female with h/o dementia, chf, cor pulmonale, asthma, ckd, presents to the ER after a fall, The patient was Enroute to see her pcp today, her dropped her at the gate and went to park the car, on coming back he noted that the patient was sitting on the floor, with few nurses surrounding the patient. The patient does not remember what exactly happened, but noted her right hip and knee hurt. She was seen by her PCP who noted that she has a right hip fracture and was therefore sent here to the ER for further evaluation The patient admits to being short of breath, but beyond that does not report any other acute symptoms, she has pain in the right hip. but denies chest pain, no palpitations, dizziness, no headache, no gi or gu symptoms reported, she had some abdominal pain issues and was recently diagnosed with UTI and was prescribed Augmentin. The patient has poor ET, MEt around 1-3, The patient Chest x ray shows acute congestive heart failure, her head ct is negative, ua neg, she has leucocytosis on cbc, cxr is neg. The patient has severe pulmonary hypertension, cor pulmonale on last echo 2014 , she has LVH with low normal systolic function. the patient was admitted to [facility] for hip revision and medicine consulted for medical optimization Family present at bedside, son and . who gave history and are aware of patients overall poor prognosis September 20 Patient seen examined, no acute overnight events, pt doing well, no acute concerns CXR still shows congestion INR is 2.0 patient denies chest pain, or other complaints Confusion over whether the patient can have surgery here, due to her high risk status. it seems that she might end up getting the surgery here. The patients WBC count is up, procalcitonin is elevated, ? pneumonia, x ray only notes congestion, but given her age, will cover with antibiotics. The patient is very high risk for surgery, anesthesia aware, family aware. LFT uptrending, usg liver ordered. patient seen examined, post op on the vent overnight needing levophed to keep her bp up, blood culture is gpc in one bottle only (contaminant) X ray chest this AM is stable, no new infiltrates she did tolerate breathing trial well this AM with TV of 375-450, and stable ABG 7.38/60/140 of 50% fio2, peep 5 The patient is intermittently anxious and needs some ativan to help, but mental status otherwise is good, she is able to follow commands and be easily redirected so far Sep 22 Patient seen examined no acute overnight issues, tolerated bipap well this AM was given a break from bipap, which she tolerated well, abg on nc oxygen was ok, she was not placed back on bipap and has done well so far mental status good denies any complaints family by bedside. A line came out, no need for reinsertion. September 23 Patient seen examined remains off bipap, doing well, x ray stable pt has cough, but denies any other complaints afebile, vital stable slight worsening of renal function ok to transfer to med surg Sep 24 Pt seen examined no acute complaints, tolerating po diet well no resp distress and has not needed bipap labs show worsening renal function. Sep 25 Feeling better today although slightly SOB on RA. Resolved when placed on home O2. Hip dressing saturated yesterday. Per Dr. Banegas's note, may need wound vac if continues to bleed. Still has Godwin; will DC today. D/W Dr. Elizabeth yesterday. Keep off diuretics; mostly has R sided heart failure. Edema may be problem but less likely to have hypoxia. Needs BMP one week post DC. Still weak. Sep 26 Feeling better. Dressing still saturating; unable to do Aquacel. Discussed with ortho--trial of more absorbent dressing; if not successful wound care nurse will place wound VAC. Needs f/u in 10-14 day post op with ortho (~09/30-). INR 2.5 today. BUN improving. Has mild hip pain that is not controlled with Tylenol. Hydrocodone added. ROS: no fever or cp - Constitutional Vitals: Vital Signs Temp Pulse Resp BP Pulse Ox 98.3 F 97 H 20 114/65 95 09/26/17 12:00 09/26/17 12:00 09/26/17 12:00 09/26/17 12:00 09/26/17 12:00 Period Temp Pulse Resp BP Sys/Roca Pulse Ox Last 24 Hr 97.8 F-98.3 F 53-97 20-22 113-144/64-84 95-97 Intake and Output 09/26/17 09/26/17 09/26/17 05:59 13:59 21:59 Intake Total 100 / 100 180 / 180 Output Total 500 / 500 500 / 500 250 / 250 Balance -400 / -400 -320 / -320 -250 / -250 Weight 223 lb Patient Weight 09/27/17 05:59 Weight 223 lb Intake & Output: Intake & Output 09/26/17 09/26/17 09/26/17 05:59 13:59 21:59 Intake Total 100 / 100 180 / 180 Output Total 500 / 500 500 / 500 250 / 250 Balance -400 / -400 -320 / -320 -250 / -250 Weight 223 lb Intake: Oral 100 / 100 180 / 180 Output: Urine Catheter Amount 500 / 500 Void Amount 500 / 500 250 / 250 Other: Meal Breakfast Percent of Meal Consumed 100% Feeding Ability Assist with Tray Set Up General: NAD HEENT: No scleral icterus. CV: Irregularly irregular. No murmurs rubs or gallops Respiratory: Lungs are clear to auscultation bilaterally. Low work of breathing. Abdomen: Soft, nondistended, nontender. Hypoactive bowel tones Extremities: Her right hip dressing is saturated with serosanguinous output. Neuro: Alert and oriented 2. No focal motor or sensory deficits. Medical - PN: Obj Da - Labs CBC & Chem 7: 09/26/17 04:00 09/26/17 04:00 Labs: Abnormal Lab Results 09/26/17 09/26/17 09/26/17 04:00 04:00 04:00 RBC 2.80 L Hgb 8.7 L Hct 26.1 L Plt Count Gran % 84.7 H Lymph % (Auto) 6.2 L Lymph # (Auto) 0.5 L PT 27.6 H INR 2.5 H Potassium BUN 99 H Creatinine 2.0 H Glucose 120 H Uric Acid 9.5 H Calcium 8.4 L Phosphorus 4.6 H GGT 49 H ALT Lactate Dehydrogenase 287 H Total Protein 5.4 L Albumin 3.0 L 09/25/17 09/25/17 09/25/17 04:10 04:10 04:10 RBC 2.82 L Hgb 8.7 L Hct 26.2 L Plt Count 138 L Gran % 83.9 H Lymph % (Auto) 7.8 L Lymph # (Auto) 0.5 L PT 31.9 H INR 3.0 H Potassium BUN 103 H* Creatinine 2.0 H Glucose 150 H Uric Acid 9.2 H Calcium 8.5 L Phosphorus 5.0 H GGT 52 H ALT Lactate Dehydrogenase 267 H Total Protein 5.4 L Albumin 3.1 L 09/24/17 09/24/17 09/24/17 04:00 04:00 04:00 RBC 3.17 L Hgb 9.7 L Hct 29.5 L Plt Count Gran % 88.2 H Lymph % (Auto) 7.1 L Lymph # (Auto) 0.5 L PT 22.2 H INR 1.9 H Potassium 5.4 H BUN 103 H* Creatinine 2.2 H Glucose 157 H Uric Acid 9.5 H Calcium Phosphorus 4.8 H GGT 61 H ALT 43 H Lactate Dehydrogenase 275 H Total Protein Albumin Meds: Medications Acetaminophen (Tylenol) 650 mg PO Q6HP PRN PRN Reason: PAIN/FEVER > 101 Last Admin: 09/26/17 10:28 Dose: 650 mg Hydrocodone Bitart/Acetaminophen ([place] 5/325mg) 1 tab PO Q3HP PRN PRN Reason: PAIN LEVEL 3-6 Last Admin: 09/26/17 14:58 Dose: 1 tab Albuterol/Ipratropium (Duoneb) 3 ml NEB Q4HP PRN PRN Reason: Shortness Of Breath Or Wheezing Donepezil HCl (Aricept) 10 mg PO HS [facility] Last Admin: 09/25/17 20:50 Dose: 10 mg Famotidine (Pepcid) 20 mg IV HS [facility] Last Admin: 09/25/17 20:50 Dose: 20 mg Acetaminophen (Ofirmev) 1,000 mg in 100 mls @ 200 mls/hr IV Q6HP PRN PRN Reason: PAIN/FEVER > 101 Lorazepam (Ativan) 1 - 2 mg IV Q2HP PRN PRN Reason: ANXIETY/SEDATION Morphine Sulfate (Morphine) 2 - 4 mg IV Q2HP PRN PRN Reason: Pain Naloxone HCl (Narcan) 0.1 mg IV Q2MIN PRN PRN Reason: Opiate Reversal Ondansetron HCl (Zofran) 4 mg IV Q4HP PRN PRN Reason: Nausea And Vomiting Paroxetine HCl (Paxil) 10 mg PO DAILY [facility] Last Admin: 09/26/17 09:26 Dose: 10 mg Polyethylene Glycol (Miralax) 17 gm PO HSP PRN PRN Reason: Constipation Pramipexole Dihydrochloride (Mirapex) 0.125 mg PO TID [facility] Last Admin: 09/26/17 14:57 Dose: 0.125 mg Prednisone (Prednisone) 40 mg PO QAC [facility] Last Admin: 09/26/17 09:25 Dose: 40 mg Simvastatin (Zocor) 5 mg PO HS [facility] Last Admin: 09/25/17 20:50 Dose: 5 mg Sodium Chloride (Saline Flush) 10 ml IV UD PRN PRN Reason: FLUSH Last Admin: 09/26/17 14:58 Dose: 10 ml Sodium Chloride (Saline Flush) 10 ml IV Q8 [facility] Last Admin: 09/26/17 15:22 Dose: 10 ml Warfarin Sodium (Coumadin Per Pharmacy) 1 order PO UD [facility] Medical - PN: A/P - Time Spent With Patient Total time spent is greater than 50% in coordination of care (as documented) at patient's floor/unit and/or counseling patient: Greater than 35 minutes (including care conference with multidisciplinary team) - Narrative A/P Narrative: A/P Hip fracture:s/p surgery 09/[address] Banegas. Trial of more absorbent dressing; if not successful, will place wound vac. Add hydrocodone for hip pain. DC Morphine. DC'd Citlali 09/26. D/W with ortho PA today. Acute on chronic hypoxic respiratory failure - due to asthma , chf, pna , off bipap now, tolerated very well. Cont home 2L NC. CAP--question of infiltrate seen on CXR in setting of leukocytosis. Started on vanco, cefepime, flagyl 09/20. s/p 6 days of IV ABx. DC'd 09/25. DC CVC on discharge. congestive Heart failure / Cor pulmonale / Severe pulm htn: monitor closely for fluid overload. Cont to hold diuretics; BUN improving. D/W Dr. Elizabeth 09/24. Appreciate nephrology input. BMP on Saturday Acute on chr renal failure: Nephrology following A fib, on chronic warfarin: INR2.5 today. Will DC on warfarin 5mg QD with INR on Saturday. HTN/ HLD : Home meds resumed, pt tolerating well so far Acute Asthma exacerbation- on steroids and duonebs and antibiotics, doing well.Transition from IV steroids to prednisone. Dementia- stable on home meds. Abnl LFT- trending down, monitor, liver us does not show any obstructive etiology. hyperkalemia- treated medically; now resolved advance diet Full code. Dispo: Likely to SNF tomorrow. Medical - PN: Qual - VTE Deep Vein Thrombosis/Pulmonary Embolism Present on Admission: No
[2017-09-26] MEDS: SIMVASTATIN 10 MG TABLET PO SCH (21:19)
[2017-09-26] MEDS: DONEPEZIL 10 MG TABLET PO SCH (21:19)
[2017-09-26] MEDS: FAMOTIDINE/PF 20 MG/2 ML VIAL IV SCH (21:20)
[2017-09-26] MEDS: IPRATROPIUM/ALBUTEROL 3 ML AMPUL.NEB NEB PRN (21:45)
[2017-09-27] MEDS: IPRATROPIUM/ALBUTEROL 3 ML AMPUL.NEB NEB PRN ×2 (01:57→09:22)
--- NOTE | 2017-09-27 07:45 | Discharge Summary ---
Medical - DS: Prov Patient information: Note initiated : 09/27/17 at 7:40 am Service Date, if different from initiated Date: [] Patient: Tana Frederick 77 y/o F admitted on 09/19/17 for Fall-R hip pain. Chief Complaint: [] Date of admission: 09/19/17 19:56 Discharge date: 09/27/17 Primary care physician: Nina Mello Attending physician on admission: Valeriano Banegas Consults: 09/19/17 18:05 Consult to Physician [CONS] Stat Comment: Consulting Provider: Valeriano Banegas Reason For Exam: Physician to Consult Consult to Physician [CONS] Stat Comment: Consulting Provider: Amie Paz Reason For Exam: Physician to Consult 09/20/17 09:40 Consult to Physician [CONS] Routine Comment: Consulting Provider: [facility] Reason For Exam: Physician to Consult 09/24/17 10:11 Consult to Physician [CONS] Routine Comment: Consulting Provider: Stevo Elizabeth Reason For Exam: Physician to Consult Attending physician on discharge: Fani Mcgee Medical - DS: Meds - Discharge Medications Prescriptions: HYDROcodone/APAP 5/325MG [[place] 5/325Mg] 1 tab PO Q3HP PRN #30 tab PRN Reason: Pain Level 3-6 predniSONE [Prednisone] 40 mg PO QAMCC #5 tab Sennosides [Senna] 8.6 mg PO BIDP PRN #60 tab PRN Reason: Constipation Active and Home Medications: Home Medications Simvastatin [Zocor] 5 mg PO HS 05/11/15 [History Confirmed 09/22/17 Last Taken Unknown] Polyethylene Glycol 3350 [Glycolax] 119 gm PO DAILYP PRN 06/07/15 [History Confirmed 09/22/17 Last Taken 06/06/15] Spironolactone [Aldactone] 50 mg PO BID 06/07/15 [History Confirmed 09/09/17 Last Taken 06/06/15] Donepezil [Aricept] 10 mg PO HS 09/09/17 [History Confirmed 09/22/17 Last Taken Unknown] PARoxetine [Paxil] 10 mg PO DAILY 09/09/17 [History Confirmed 09/22/17 Last Taken Unknown] Pramipexole [Mirapex] 0.125 mg PO TID 09/09/17 [History Confirmed 09/22/17 Last Taken Unknown] Promethazine [Phenergan] 12.5 mg PO Q6H PRN #20 tab 09/09/17 [Rx Last Taken Unknown] Cyanocobalamin (Vitamin B-12) [B-12 Compliance] 1,000 mcg IV/IM MONTHLY [History Confirmed 09/22/17 Last Taken 08/20/17 12:00 1000mcg] Furosemide [Lasix] 40 mg PO HS 09/22/17 [History Confirmed 09/22/17 Last Taken Unknown] Furosemide [Lasix] 80 mg PO DAILY 09/22/17 [History Confirmed 09/22/17 Last Taken Unknown] Warfarin [Coumadin] 4 mg PO SUMOTUWEFRSA 09/22/17 [History Confirmed 09/22/17 Last Taken Unknown] Warfarin [Coumadin] 6 mg PO TH 09/22/17 [History Confirmed 09/22/17 Last Taken Unknown] Medical - DS: Hosp Hospital course: Follow up issues: 1. INR 09/30. Warfarin dosing per [facility] house physician 2. BMP 09/30. 3. Resumption of diuretics 4. Follow up of wound drainage and assessing need for wound vac. Mr. Ferderick is a 77 year old F with a history of dementia, CHF and cor pulmonale, asthma and CKD she was brought to the ER on 09/26 after a fall during which she sustained a hip fracture. She was found to have pulmonary edema and was felt to be a high risk patient for surgery. Her surgery was delayed due to her high risk and whether the patient may be better served by having surgery in a higher level facility. She was diuresed and, given her leukocytosis, positive for calcitonin and possible infiltrate on x-ray, she was started on broad-spectrum antibiotics (vancomycin, cefepime and Flagyl). She underwent total hip arthroplasty by Dr. Banegas on 09/20. She had postop ventilator-dependent respiratory failure which was weaned to BiPAP and then to her home 2 L of oxygen. With her aggressive diuresis, she developed uremia to 103. Nephrology was consulted and recommended holding her diuretics as she primarily has right-sided failure and is at lower risk in general for pulmonary edema. Her respiratory status has improved with nebulizer treatments and at times she is able to be on room air only. Postoperatively she has had difficulty with draining from her wound. She is now on a more absorbent dressing per or so. She will have follow-up early next week to evaluate the need for a wound VAC. She has chronic A. fib on Coumadin. Her INR has been therapeutic prior to discharge and she will need a repeat INR on Saturday. Discharge diagnosis: Hip fracture s/p [facility] Secondary discharge diagnosis: Acute on chronic hypoxic respiratory failure Community acquired pneumonia Acute asthma exacerbation Acute on chronic renal failure A fib on chronic warfarin Hyperkalemia HTN HLD Abnormal LFTs, improved Dementia - Time Spent with Patient Total time spent providing and/or coordinating discharge services: Medical - DS: Exam - Constitutional Vitals: Vital Signs Temp Pulse Pulse Resp BP BP BP 09/27/17 06:30 97.6 F 16 131/68 09/27/17 04:00 98.2 F 78 14 126/74 09/27/17 00:00 98.4 F 85 14 120/70 09/26/17 21:46 106 H 16 09/26/17 20:00 98.5 F 90 16 113/54 09/26/17 16:00 97.9 F 20 120/68 09/26/17 12:00 98.3 F 97 H 20 114/65 09/26/17 10:28 98.2 F 09/26/17 08:00 98.0 F 20 126/81 Pulse Ox 09/27/17 06:30 99 09/27/17 04:00 100 09/27/17 00:00 97 09/26/17 21:46 09/26/17 20:00 95 09/26/17 16:00 98 09/26/17 12:00 95 09/26/17 10:28 09/26/17 08:00 97 Intake and Output 09/26/17 09/27/17 09/27/17 21:59 05:59 13:59 Intake Total 400 / 400 Output Total 651 / 651 400 / 400 301 / 301 Balance -651 / -651 0 / 0 -301 / -301 Intake: Oral 400 / 400 Output: Void Amount 650 / 650 400 / 400 300 / 300 # of times incontinent of urine Other: # Voids 1 Weight 224 lb Additional comments: General: NAD HEENT: No scleral icterus. CV: Irregularly irregular. No murmurs rubs or gallops Respiratory: Lungs are clear to auscultation bilaterally. Low work of breathing. Abdomen: Soft, nondistended, nontender. Hypoactive bowel tones Extremities: Her right hip dressing is saturated with serosanguinous output. Neuro: Alert and oriented 2. No focal motor or sensory deficits. Medical - DS: A/P - Patient/Caregiver Discharge Instructions Activity: as per physical therapy, increase activity as tolerated, wear oxygen at all times Diet: Low Sodium (2gm), Cardiac Additional Instructions: Discharge Instructions: Do the exercises at home that physical therapy gave you. Wear comfortable clothing for your physical therapy. Weight bearing as tolerated. Daily dressing changes and daily and as needed; use a super absorbant gauze dressing. Keep incision clean and dry. You may start showering 24 hours after the incision stops draining. To avoid constipation while taking any narcotic pain medication, take an over the counter stool softener/laxative. Use ice packs as directed, on for 20 minutes at a time throughout the day. This and elevation will help with pain and swelling. Call your physician for fevers above 100.5 or pain not controlled by medication. Your prescriptions are with your discharge information. Some medications were electronically transmitted to your pharmacy of choice. You should have blood work done on Saturday, 09/30, to check your INR and BMP. Prescriptions: HYDROcodone/APAP 5/325MG [[place] 5/325Mg] 1 tab PO Q3HP PRN #30 tab PRN Reason: Pain Level 3-6 predniSONE [Prednisone] 40 mg PO QAMCC #5 tab Sennosides [Senna] 8.6 mg PO BIDP PRN #60 tab PRN Reason: Constipation Other Amb Orders: Home Oxygen Order Location: Determined By Patient OT Discharge Order Location: Determined By Patient Physical Therapy at Discharge - [facility] Location: Determined By Patient Basic Metabolic Panel Location: Determined By Patient Prothrombin Time INR Location: Determined By Patient - Follow up Plan Follow up with: Valeriano Banegas MD [Physician] - 09/30/17 11:10 am (check in at 10:50 am) Nina Mello MD [Primary Care Provider] - (Call/Schedule hospital follow up.) Disposition: Xfer SNF Prognosis: Fair Rehab Potential: Good I certify that the patient requires SNF services: Yes Overall status at discharge: patient is progressing back to baseline (DC if OK with Dr. Banegas) Medical - DS: Qual - VTE Deep Vein Thrombosis/Pulmonary Embolism Present on Admission: No
[2017-09-27] MEDS: PARoxetine 20 MG TABLET PO SCH (08:25)
[2017-09-27] MEDS: predniSONE 20 MG TABLET PO SCH (08:25)
[2017-09-27] MEDS: PRAMIPEXOLE 0.25 MG TABLET PO SCH (08:25)
[2017-09-27] MEDS: 0.9 % SODIUM CHLORIDE 10 ML SYRINGE IV SCH (08:26)
[2017-09-27] MEDS: HYDROcodone/APAP 5/325MG TABLET PO PRN (13:00)
== END 2017-09-27 13:10 | DRG 469 ==
LOC: ED 15:02 → ICU 19:56 → MEDSUR 09-23 13:00
PROVIDERS: ADMIT Orthopaedic Surgery; ATTEND Internal Medicine
PROC: HEMIHIP (2017-09-20 16:04)

== ENCOUNTER 2017-10-09 21:17 | Inpatient (IN) ==
--- NOTE | 2017-10-09 21:28 | Emergency Department Note ---
Weakness HPI - General Chief complaint: Weakness Stated complaint: weakness, low H&H Time Seen by Provider: 10/09/17 21:19 Source: patient, EMS Mode of arrival: EMS Limitations: no limitations - History of Present Illness HPI Narrative: [facility] Increasingly weak and pale. Heme positive stools reported. Reported anemic and elevated INR. Recent right total hip, convalescing from recovery. Patient states that she feels weak, limited insight and history. States that she feels confused. - Related Data Home Medications Medication Instructions Recorded Confirmed Simvastatin [Zocor] 5 mg PO HS 05/11/15 10/09/17 Donepezil [Aricept] 10 mg PO HS 09/09/17 10/09/17 PARoxetine [Paxil] 10 mg PO DAILY 09/09/17 10/09/17 Pramipexole [Mirapex] 0.125 mg PO TID 09/09/17 09/22/17 Cyanocobalamin (Vitamin B-12) 1,000 mcg IV/IM MONTHLY 09/22/17 10/09/17 [B-12 Compliance] Bisacodyl [Dulcolax] 10 mg [place] DAILYP PRN 10/09/17 10/09/17 Furosemide [Lasix] 40 mg PO BID 10/09/17 10/09/17 HYDROcodone/APAP 5/325MG [[place] 1 tab PO Q4HP PRN 10/09/17 10/09/17 5/325Mg] Ipratropium/Albuterol [Duoneb] 3 ml NEB Q6HP PRN 10/09/17 10/09/17 Na Phos,M-B/Na Phos,Di-Ba [[place] 1 dose [place] DAILYP PRN 10/09/17 10/09/17 Adult] Polyethylene Glycol 3350 [Miralax] 17 gm PO DAILYP PRN 10/09/17 10/09/17 Ranitidine HCl [Zantac] 150 mg PO BID 10/09/17 10/09/17 Sennosides [Natural Vegetable 8.6 mg PO BID PRN 10/09/17 10/09/17 Laxative] Spironolactone [Aldactone] 50 mg PO BID 10/09/17 10/09/17 Previous Rx's Medication Instructions Recorded Promethazine [Phenergan] 12.5 mg PO Q6H PRN #20 tab 09/09/17 Acetaminophen [Tylenol] 650 mg PO Q6HP PRN tablet 09/27/17 Allergies Allergy/AdvReac Type Severity Reaction Status Date / Time Zolpidem [ZOLPIDEM] Allergy Intermediate Unknown Verified 09/09/17 11:40 bacitracin [BACITRACIN] Allergy Mild Rash Verified 09/09/17 11:40 moxifloxacin Allergy Unknown Unknown Verified 09/09/17 11:40 soybean [SOYBEAN] Allergy Unknown Rash Verified 09/09/17 11:40 Sulfa (Sulfonamide AdvReac Unknown URINARY Verified 09/09/17 11:40 Antibiotics) RETENTION [SULFA (SULFONAMIDE ANTIBIOTICS)] Review of Systems Constitutional: Denies: fever, chills Cardiovascular: Reports: dyspnea on exertion. Denies: chest pain Respiratory: Denies: cough Gastrointestinal: Reports: melena. Denies: abdominal pain Past Medical History - Past Medical History Attestation: Yes: The following information was validated with the patient. Medical history: Reports: asthma, atrial fibrillation (Chronic, on chronic Coumadin.), CHF (Chronic diastolic with exacerbations.), COPD ( denied this however.), diabetes, GERD, renal disease, other (pericarditis 06. Environmental allergies. Dementia (mild-moderate). Chronic anticoagulation.). Denies: CVA, hyperlipidemia, hypertension, thyroid disease, TIA Psychiatric history: Reports: anxiety, depression Surgical history ED: Reports: cholecystectomy (Summary 2017.), knee replacement (Left.), tonsillectomy, other (2006 drainage and surgical placement of shunt or other drainage apparatus for pericardial effusion. Skin graft from right proximal thigh to the left frontal scalp.) Family history: Reports: non-contributory - Social History smoking status: Former smoker Alcohol use: Reports: Rarely (beer) Drug use: Reports: none Physical Exam Limitations: no limitations General appearance: alert, in distress, lethargic, obese, other (Pale-appearing) Head: atraumatic Eye: Present: normal appearance ENT: normal exam, mucous membranes moist Neck: Present: normal inspection. Absent: lymphadenopathy Chest: Present: normal inspection Respiratory: Present: normal lung sounds bilaterally. Absent: respiratory distress Cardiovascular: Present: regular rate, normal rhythm Abdominal: Present: soft. Absent: distention, tenderness Extremities: Present: other (pale; slow Refill; diffuse bruising) Neurological: Present: alert, oriented X3 Psychiatric: Present: anxious Skin: Present: pallor, other (cool) Course - Reevaluation(s) Reevaluation #1: critical anemia, HCT < 15 blood ordered Time: 22:10 Vital Signs Temperature 98.9 F 10/09/17 21:18 Pulse Rate 104 H 10/09/17 21:18 Respiratory Rate 20 10/09/17 21:18 Blood Pressure 95/59 10/09/17 21:18 Pulse Oximetry (%) 97 10/09/17 21:18 Temperature 98.9 F 10/09/17 21:18 Pulse Rate 100 H 10/09/17 23:20 Respiratory Rate 20 10/09/17 23:20 Blood Pressure 111/52 10/09/17 23:20 Pulse Oximetry (%) 100 10/09/17 23:20 Weakness - Lab Data Lab results reviewed: Yes I reviewed the patient's lab results. Result diagrams: 10/09/17 21:55 10/09/17 21:55 Lab Results 10/09/17 10/09/17 10/09/17 Range/Units 21:45 21:55 21:55 WBC 15.7 H (4.5-11.0) K/mcL RBC 1.29 L (4.00-5.20) M/mcL Hgb 4.4 L* (12.0-15.0) g/dL Hct 13.0 L* (36.0-48.0) % POC Hct (36.0-48.0) % MCV 100.5 H (80.0-100.0) fL MCH 33.7 (26.0-34.0) pg MCHC 33.5 (31.0-36.0) g/dL RDW 19.8 H (11.5-14.5) % Plt Count 201 (140-440) K/mcL MPV 7.9 (7.4-10.4) fL Gran % 87.7 H (38.0-78.0) % Lymph % (Auto) 6.9 L (15.5-49.0) % [place] % (Auto) 4.2 (1.0-12.0) % Eos % (Auto) 1.1 (0.0-7.0) % Baso % (Auto) 0.1 (0.0-2.0) % Gran # 13.7 H (1.8-8.0) K/mcL Lymph # (Auto) 1.1 L (1.5-4.8) K/mcL [place] # (Auto) 0.7 (0.1-0.9) K/mcL Eos # (Auto) 0.2 (0.0-0.7) K/mcL Baso # (Auto) 0 (0.0-0.3) K/mcL POC PT 28.9 H (11.9-14.5) sec POC INR 2.5 H (0.9-1.2) VBG Lactic Acid 0.7 (0.5-2.2) mmol/L POC Sodium (133-145) mmol/L Sodium (133-145) mmol/L POC Potassium (3.3-5.1) mmol/L Potassium (3.3-5.1) mmol/L POC Chloride (96-108) mmol/L Chloride (96-108) mmol/L Carbon Dioxide (22-30) mmol/L POC Total CO2 (22-30) mmol/L Anion Gap (8-16) POC BUN (8-23) mg/dl BUN (8-23) mg/dl Creatinine (0.6-1.1) mg/dl POC Creatinine (0.6-1.1) mg/dl GFR Calculation Glucose (70-105) mg/dL POC Glucose (70-105) mg/dL Calcium (8.6-10.4) mg/dl POC WB Ioniz Calcium (1.16-1.32) mmol/L Total Bilirubin (0.0-1.0) mg/dL AST (0-37) U/l ALT (0-40) U/l Alkaline Phosphatase (39-117) U/L Total Protein (5.9-8.4) gm/dL Albumin (3.2-5.2) gm/dL Globulin (2.2-3.7) gm/dL Albumin/Globulin Ratio (1.0-2.3) 10/09/17 Range/Units 21:55 WBC (4.5-11.0) K/mcL RBC (4.00-5.20) M/mcL Hgb (12.0-15.0) g/dL Hct (36.0-48.0) % POC Hct < 15.0 L* (36.0-48.0) % MCV (80.0-100.0) fL MCH (26.0-34.0) pg MCHC (31.0-36.0) g/dL RDW (11.5-14.5) % Plt Count (140-440) K/mcL MPV (7.4-10.4) fL Gran % (38.0-78.0) % Lymph % (Auto) (15.5-49.0) % [place] % (Auto) (1.0-12.0) % Eos % (Auto) (0.0-7.0) % Baso % (Auto) (0.0-2.0) % Gran # (1.8-8.0) K/mcL Lymph # (Auto) (1.5-4.8) K/mcL [place] # (Auto) (0.1-0.9) K/mcL Eos # (Auto) (0.0-0.7) K/mcL Baso # (Auto) (0.0-0.3) K/mcL POC PT (11.9-14.5) sec POC INR (0.9-1.2) VBG Lactic Acid (0.5-2.2) mmol/L POC Sodium 135 (133-145) mmol/L Sodium 136 (133-145) mmol/L POC Potassium 5.0 (3.3-5.1) mmol/L Potassium 5.0 (3.3-5.1) mmol/L POC Chloride 93 L (96-108) mmol/L Chloride 95 L (96-108) mmol/L Carbon Dioxide 32 H (22-30) mmol/L POC Total CO2 34 H (22-30) mmol/L Anion Gap 9.0 (8-16) POC BUN 103 H* (8-23) mg/dl BUN 101 H* (8-23) mg/dl Creatinine 1.3 H (0.6-1.1) mg/dl POC Creatinine 1.6 H (0.6-1.1) mg/dl GFR Calculation 39 Glucose 142 H (70-105) mg/dL POC Glucose 134 H (70-105) mg/dL Calcium 8.1 L (8.6-10.4) mg/dl POC WB Ioniz Calcium 1.10 L (1.16-1.32) mmol/L Total Bilirubin 0.5 (0.0-1.0) mg/dL AST 15 (0-37) U/l ALT 13 (0-40) U/l Alkaline Phosphatase 62 (39-117) U/L Total Protein 4.4 L (5.9-8.4) gm/dL Albumin 2.3 L (3.2-5.2) gm/dL Globulin 2.1 L (2.2-3.7) gm/dL Albumin/Globulin Ratio 1.1 (1.0-2.3) Critical Care Time Critical Care Time: Yes Total Critical Care Time: 45 Attestation: critical postoperative anemia with acute GI bleeding Disposition Pt seen by [facility] only: No Clinical Impression: Upper GI bleed, Bleeding on Coumadin Anemia Qualifiers: Anemia type: unspecified type Qualified Code(s): D64.9 - Anemia, unspecified Disposition: Home, Self-Care Condition: Fair Referrals: Nina Mello MD [Primary Care Provider] -
[2017-10-09] MEDS: 0.9 % SODIUM CHLORIDE 1,000 ML IV SCH (21:39)
[2017-10-09] MEDS ORDERED: PHYTONADIONE 10 MG/ML AMPUL SQ ONE (22:11)
[2017-10-09] MEDS ORDERED: 0.9 % SODIUM CHLORIDE 250 ML IV SCH (22:15)
[2017-10-09 22:38] LABS: Basophils # (Auto) 0 K/mcL (0.0-0.3); Basophils % (Auto) 0.1 % (0.0-2.0); Eosinophils # (Auto) 0.2 K/mcL (0.0-0.7); Eosinophils % (Auto) 1.1 % (0.0-7.0); Granulocytes % (Auto) 87.7 % (38.0-78.0); Lymphocytes # (Auto) 1.1 K/mcL (1.5-4.8); Lymphocytes % (Auto) 6.9 % (15.5-49.0); Mean Cell Volume 100.5 fL (80.0-100.0); Mean Corpuscular HGB Conc 33.5 g/dL (31.0-36.0); Mean Corpuscular Hemoglobin 33.7 pg (26.0-34.0); Monocytes # (Auto) 0.7 K/mcL (0.1-0.9); Monocytes % (Auto) 4.2 % (1.0-12.0); Platelet Count 201 K/mcL (140-440); RBC 1.29 M/mcL (4.00-5.20); Red Cell Distribution Width 19.8 % (11.5-14.5)
[2017-10-09 23:02] LABS: ALT/SGPT 13 U/l (0-40); Albumin 2.3 gm/dL (3.2-5.2); Albumin/Globulin Ratio 1.1 (1.0-2.3); Alkaline Phosphatase 62 U/L (39-117); Blood Urea Nitrogen 101 mg/dl (8-23)
[2017-10-09] MEDS ORDERED: PANTOPRAZOLE 40 MG VIAL IV ONE (23:40)
[2017-10-10 01:10] LABS: Iron 147 mcg/dl (37-145); Transferrin % Saturation 74 % (15-50); Unsaturated Iron Binding 50 mcg/dL (112-346)
[2017-10-10] MEDS ORDERED: FUROSEMIDE 20 MG/2 ML VIAL IV ONE ×3 (04:18→15:51)
[2017-10-10] MEDS: 0.9 % SODIUM CHLORIDE 1,000 ML IV SCH ×2 (04:50→07:20)
[2017-10-10] MEDS ORDERED: HYDROcodone/APAP 5/325MG TABLET PO ONE (08:11)
[2017-10-10] MEDS ORDERED: IPRATROPIUM/ALBUTEROL 3 ML AMPUL.NEB NEB PRN (09:28)
[2017-10-10] MEDS ORDERED: NALOXONE HCL 0.4 MG/ML VIAL IV PRN (09:28)
[2017-10-10] MEDS ORDERED: ONDANSETRON 4 MG/2 ML VIAL IV PRN (09:28)
[2017-10-10] MEDS ORDERED: 0.9 % SODIUM CHLORIDE 250 ML IV SCH (09:28)
[2017-10-10] MEDS ORDERED: ACETAMINOPHEN 325 MG TABLET PO PRN (09:28)
[2017-10-10] MEDS ORDERED: HYDROcodone/APAP 5/325MG TABLET PO PRN (09:28)
[2017-10-10] MEDS ORDERED: MAGNESIUM HYDROXIDE 30 ML ORAL.SUSP PO PRN (09:28)
--- NOTE | 2017-10-10 09:29 | Internal Med History&Physical ---
Medical - H&P: HPI Patient information: Note initiated : 10/10/17 at 9:27 am Service Date, if different from initiated Date: [] Patient: Tana Frederick a 77 y/o F admitted on 10/10/17 for weakness, low H&H. Chief Complaint: [] History of present illness: Ms. Frederick is a 77 year old F Recent medical history: September 27, 2017, discharge: Mrs. Frederick is a 77 year old F with a history of dementia, CHF and cor pulmonale, asthma and CKD she was brought to the ER on 09/26 after a fall during which she sustained a hip fracture. She was found to have pulmonary edema and was felt to be a high risk patient for surgery. Her surgery was delayed due to her high risk and whether the patient may be better served by having surgery in a higher level facility. She was diuresed and, given her leukocytosis, positive for calcitonin and possible infiltrate on x-ray, she was started on broad-spectrum antibiotics (vancomycin, cefepime and Flagyl). She underwent total hip arthroplasty by Dr. Banegas on 09/20. She had postop ventilator-dependent respiratory failure which was weaned to BiPAP and then to her home 2 L of oxygen. With her aggressive diuresis, she developed uremia to 103. Nephrology was consulted and recommended holding her diuretics as she primarily has right-sided failure and is at lower risk in general for pulmonary edema. Her respiratory status has improved with nebulizer treatments and at times she is able to be on room air only. She has chronic A. fib on Coumadin. Her INR has been therapeutic prior to discharge and she will need a repeat INR on Saturday. October 10, 2017: This patient has been at [facility] since discharge from [facility] after her hip surgery. Her family relates that she has not been doing very well with physical therapy, and has been complaining more recently of weakness and fatigue whenever they try to get her to stand up. She apparently was evaluated yesterday at the intermediate and found to have heme positive stools. Labs were ordered, and she was found to have significant anemia. In our emergency room hemoglobin was noted at 4 with hematocrit of 13. She had mild hypotension on presentation. She was resuscitated with fluids, and then was given 3 units of packed red blood cells overnight. He was also given 1 dose of vitamin K, 5 mg subcu. She was admitted to the floor this morning, after a call was put out to for urgent consultation. Unfortunately, there was a mixup, and the doctor on-call could not actually see her here. Dr. Gonzalez of was contacted this afternoon. Her recent hospital course was reviewed with him, and he recommended that she be transferred to [facility] for urgent upper endoscopy. Today, getting history from the patient is difficult. She has known dementia, and really cannot remember very much of her recent course. Her is also very hard of hearing, and does not seem to have a clear recollection of recent events. He reports she has been having upper abdominal discomfort on and off for the last 6 months, but the patient cannot recall this. She denies recent fever or chills, headaches or dizziness, new eye or ear symptoms, sore throat or cough, chest pain or palpitations, shortness of breath or wheezing, abdominal pain, nausea or vomiting, diarrhea or constipation or dysuria. Medical history: Reports: asthma, atrial fibrillation (Chronic, on chronic Coumadin.), CHF (Chronic diastolic with exacerbations.), COPD ( denied this however.), diabetes, GERD, renal disease, other (pericarditis 06. Environmental allergies. Dementia (mild-moderate). Chronic anticoagulation.). Denies: CVA, hyperlipidemia, hypertension, thyroid disease, TIA Psychiatric history: Reports: anxiety, depression Surgical history ED: Reports: cholecystectomy (Summary 2017.), knee replacement (Left.), tonsillectomy, other (2006 drainage and surgical placement of shunt or other drainage apparatus for pericardial effusion. Skin graft from right proximal thigh to the left frontal scalp.) Pertinent family history: Patient's mother had COPD and cancer. Patient's father of cirrhosis, he drank heavily. Social history: The patient lives with her . She does not smoke or drink. Medical - H&P: Meds Home Medications Medication Instructions Recorded Confirmed Type Simvastatin [Zocor] 5 mg PO HS 05/11/15 10/09/17 History Donepezil [Aricept] 10 mg PO HS 09/09/17 10/10/17 History PARoxetine [Paxil] 10 mg PO DAILY 09/09/17 10/10/17 History Pramipexole [Mirapex] 0.125 mg PO TID 09/09/17 10/10/17 History Promethazine [Phenergan] 12.5 mg PO Q6H PRN #20 tab 09/09/17 10/09/17 Rx Cyanocobalamin (Vitamin B-12) 1,000 mcg IV/IM MONTHLY 09/22/17 10/10/17 History [B-12 Compliance] Acetaminophen [Tylenol] 650 mg PO Q6HP PRN tablet 09/27/17 10/10/17 Rx Bisacodyl [Dulcolax] 10 mg [place] DAILYP PRN 10/09/17 10/10/17 History Furosemide [Lasix] 40 mg PO BID 10/09/17 10/10/17 History HYDROcodone/APAP 5/325MG [[place] 1 tab PO Q4HP PRN 10/09/17 10/10/17 History 5/325Mg] Ipratropium/Albuterol [Duoneb] 3 ml NEB Q6HP PRN 10/09/17 10/10/17 History Polyethylene Glycol 3350 [Miralax] 17 gm PO DAILYP PRN 10/09/17 10/10/17 History Ranitidine HCl [Zantac] 150 mg PO BID 10/09/17 10/09/17 History Sennosides [Natural Vegetable 8.6 mg PO BID PRN 10/09/17 10/09/17 History Laxative] Spironolactone [Aldactone] 50 mg PO BID 10/09/17 10/09/17 History 0.9 % Sodium Chloride [[place] 10 ml IV Q8 syringe 10/10/17 Rx Flush] Acetaminophen [Tylenol] 650 mg PO Q6HP PRN tablet 10/10/17 Rx HYDROcodone/APAP 5/325MG [[place] 1 tab PO Q4HP PRN tablet 10/10/17 Rx 5/325Mg] Ipratropium/Albuterol [Duoneb] 3 ml NEB Q6HRT PRN ampul.neb 10/10/17 Rx Magnesium Hydroxide [Milk of 30 ml PO DAILYP PRN oral.susp 10/10/17 Rx Magnesia] Naloxone HCl [Narcan] 0.1 mg IV Q2MIN PRN vial 10/10/17 Rx Ondansetron [Zofran] 4 mg IV Q6HP PRN vial 10/10/17 Rx Allergies Allergy/AdvReac Type Severity Reaction Status Date / Time Zolpidem [ZOLPIDEM] Allergy Intermediate Unknown Verified 09/09/17 11:40 bacitracin [BACITRACIN] Allergy Mild Rash Verified 09/09/17 11:40 moxifloxacin Allergy Unknown Unknown Verified 09/09/17 11:40 soybean [SOYBEAN] Allergy Unknown Rash Verified 09/09/17 11:40 Sulfa (Sulfonamide AdvReac Unknown URINARY Verified 09/09/17 11:40 Antibiotics) RETENTION [SULFA (SULFONAMIDE ANTIBIOTICS)] Medical - H&P: Exam - Constitutional Vitals: Temp Pulse Resp BP Pulse Ox 97.5 F 88 18 132/121 100 10/10/17 07:15 10/10/17 09:16 10/10/17 07:15 10/10/17 09:01 10/10/17 09:16 On physical exam, she is a pale, elderly female, who is quite forgetful, but is otherwise awake, cooperative, and alert. [place] temperature is 97.5, heart rate 88, respiratory rate 20, blood pressure 104/55, O2 saturation 96% on 2 L nasal cannula. Head: Normocephalic, atraumatic. Eyes: PERRLA, EOMI, anicteric. Conjunctive are pale. Ears: TMs and canals are clear. Pharynx: Is clear. Neck: Is supple, without obvious lymphadenopathy, JVD, thyromegaly, bruits. Cardiac exam: Shows an irregularly irregular rhythm with normal S1 and S2. There is a 2/6 systolic ejection murmur noted along the left lower sternal border. No rubs or gallops are noted. Lungs: She has fairly diffuse crackles throughout both lung antony. When asked if she is feeling short of breath, she says "yes". Abdomen: Is obese, but soft and nontender, without obvious masses. There is no guarding or rebound. Bowel sounds are active. Extremities: She has significant chronic edema, 3-4+, greater on the right than the left. Edema is not tense. Her family says this is chronic. Neurologic exam: The patient is alert and calm, but very forgetful. She cannot recall having a recent hip fracture repair. Cranial nerves and motor exam are grossly nonfocal. Medical - H&P: Reslt - Labs CBC & Chem 7: 10/10/17 11:10 10/10/17 10:59 Labs: Short CBC 10/09/17 Range/Units 21:55 WBC 15.7 H (4.5-11.0) K/mcL Hgb 4.4 L* (12.0-15.0) g/dL Hct 13.0 L* (36.0-48.0) % Plt Count 201 (140-440) K/mcL BMP 10/09/17 21:55 Sodium 136 Potassium 5.0 Chloride 95 L Carbon Dioxide 32 H BUN 101 H* Creatinine 1.3 H Glucose 142 H Calcium 8.1 L Liver Function 10/09/17 Range/Units 21:55 Total Bilirubin 0.5 (0.0-1.0) mg/dL AST 15 (0-37) U/l ALT 13 (0-40) U/l Alkaline Phosphatase 62 (39-117) U/L Albumin 2.3 L (3.2-5.2) gm/dL EKG shows atrial fibrillation at a rate of about 120. Low voltage. Medical - H&P: A/P (1) Atrial fibrillation, chronic Status: Acute (2) Diabetes mellitus Status: Acute (3) Anemia Status: Acute (4) Upper GI bleed Status: Acute (5) Bleeding on Coumadin Status: Acute - Narrative A/P Narrative: Assessment and plan: 1. GI. She presents with signs and symptoms of significant GI bleed. She presented with hemoglobin of 4 4, which has risen to 7.3 after 3 units of packed red blood cells. She has been fairly stable hemodynamically for the last several hours, without signs of melena or hematochezia, but is certainly at high risk for continued bleeding. -Her case was reviewed with Dr. Gonzalez of GI, as well as Dr. Belcher at [facility]. They have graciously accepted the patient in transfer, so that the patient can have a urgent endoscopy this evening. -A fourth unit of packed red blood cells is being hung currently, as that was ready to go. -Patient was also ordered for 20 mg of IV Lasix, as she is likely a bit wet at the moment. #2. Pulmonary. History of asthma and recent community-acquired pneumonia, with respiratory failure. She did well after BiPAP. 3. Cardiac. History of CHF, right-sided, cor pulmonale, pulmonary hypertension. Diuretics were cut back, after patient developed significant dehydration. -History of chronic atrial fibrillation, with controlled rate. She was therapeutic on her warfarin, but that was reversed with vitamin K last night. This will need to be resumed later, after her GI issues are sorted out. 4. Renal. Chronic kidney disease. She is followed by Dr. Elizabeth. Recent baseline BUN and creatinine appear to have her around 100/2.2. Today's BUN and creatinine are 90 and 1.3, which is improved for her. 5. Hypertension. Hold current blood pressure meds. 6. Neurologic. History of dementia. Continue usual medications. 7. CODE STATUS: The patient has traditionally remained full code. Approximately 75 minutes was spent today, reviewing the patient's case with the ER MD, interviewing and examining the patient, reviewing plan of care with the patient and her family, reviewing the case with GI as well as with the hospitalist at [facility], and writing orders.
[2017-10-10 11:55] LABS: ALT/SGPT 11 U/l (0-40); Albumin/Globulin Ratio 0.8 (1.0-2.3); Alkaline Phosphatase 60 U/L (39-117); Bilirubin,Direct < 0.2 mg/dL (0.0-0.3); Blood Urea Nitrogen 90 mg/dl (8-23); Gamma Glutamyl Transpeptidase 16 U/L (5-36); Magnesium 1.8 mg/dL (1.6-2.5); Uric Acid 6.9 mg/dL (2.5-8.0)
[2017-10-10] MEDS ORDERED: 0.9 % SODIUM CHLORIDE 10 ML SYRINGE IV SCH (14:00)
--- NOTE | 2017-10-10 16:04 | Discharge Summary ---
Medical - DS: Prov Patient information: Note initiated : 10/10/17 at 4:02 pm Service Date, if different from initiated Date: [] Patient: Tana Frederick 77 y/o F admitted on 10/10/17 for weakness, low H&H. Chief Complaint: [] Date of admission: 10/10/17 09:20 Discharge date: 10/10/17 Primary care physician: Nina Mello Admitting clinician: Tess Wilson Consults: 10/10/17 08:07 Consult to Physician [CONS] Stat Comment: Consulting Provider: Tess Wilson Reason For Exam: Physician to Consult 10/10/17 09:28 Consult to Physician [CONS] Routine Comment: gi bleed Consulting Provider: Juan Gonzalez Reason For Exam: Physician to Consult Attending physician on discharge: Tess Wilson Medical - DS: Meds - Discharge Medications Active and Home Medications: Home Medications Simvastatin [Zocor] 5 mg PO HS 05/11/15 [History Confirmed 10/09/17 Last Taken Unknown] Donepezil [Aricept] 10 mg PO HS 09/09/17 [History Confirmed 10/10/17 Last Taken 10/09/17] PARoxetine [Paxil] 10 mg PO DAILY 09/09/17 [History Confirmed 10/10/17 Last Taken 10/09/17] Pramipexole [Mirapex] 0.125 mg PO TID 09/09/17 [History Confirmed 10/10/17 Last Taken 10/09/17] Promethazine [Phenergan] 12.5 mg PO Q6H PRN #20 tab 09/09/17 [Rx Confirmed 10/09 Last Taken Unknown] Cyanocobalamin (Vitamin B-12) [B-12 Compliance] 1,000 mcg IV/IM MONTHLY [History Confirmed 10/10/17 Last Taken 10/09/17] Acetaminophen [Tylenol] 650 mg PO Q6HP PRN tablet 09/27/17 [Rx Confirmed Last Taken 10/09/17] Bisacodyl [Dulcolax] 10 mg ND DAILYP PRN 10/09/17 [History Confirmed 10/10/17 Last Taken 10/09/17] Furosemide [Lasix] 40 mg PO BID 10/09/17 [History Confirmed 10/10/17 Last Taken 10/09/17] HYDROcodone/APAP 5/325MG [[place] 5/325Mg] 1 tab PO Q4HP PRN 10/09/17 [History Confirmed 10/10/17 Last Taken 10/09/17] Ipratropium/Albuterol [Duoneb] 3 ml NEB Q6HP PRN 10/09/17 [History Confirmed Last Taken 10/09/17] Na Phos,M-B/Na Phos,Di-Ba [Fleets Adult] 1 dose ND DAILYP PRN 10/09/17 [History Confirmed 10/10/17 Last Taken 10/09/17] Polyethylene Glycol 3350 [Miralax] 17 gm PO DAILYP PRN 10/09/17 [History Confirmed 10/10/17 Last Taken 10/09/17] Ranitidine HCl [Zantac] 150 mg PO BID 10/09/17 [History Confirmed 10/09/17 Last Taken Unknown] Sennosides [Natural Vegetable Laxative] 8.6 mg PO BID PRN 10/09/17 [History Confirmed 10/09/17 Last Taken Unknown] Spironolactone [Aldactone] 50 mg PO BID 10/09/17 [History Confirmed 10/09/17 Last Taken Unknown] Medical - DS: Hosp Hospital course: Mrs. Frederick is a 77 year old F Recent medical history: September 27, 2017, discharge: Mrs. Frederick is a 77 year old F with a history of dementia, CHF and cor pulmonale, asthma and CKD she was brought to the ER on 09/26 after a fall during which she sustained a hip fracture. She was found to have pulmonary edema and was felt to be a high risk patient for surgery. Her surgery was delayed due to her high risk and whether the patient may be better served by having surgery in a higher level facility. She was diuresed and, given her leukocytosis, positive for calcitonin and possible infiltrate on x-ray, she was started on broad-spectrum antibiotics (vancomycin, cefepime and Flagyl). She underwent total hip arthroplasty by Dr. Banegas on 09/20. She had postop ventilator-dependent respiratory failure which was weaned to BiPAP and then to her home 2 L of oxygen. With her aggressive diuresis, she developed uremia to 103. Nephrology was consulted and recommended holding her diuretics as she primarily has right-sided failure and is at lower risk in general for pulmonary edema. Her respiratory status has improved with nebulizer treatments and at times she is able to be on room air only. She has chronic A. fib on Coumadin. Her INR has been therapeutic prior to discharge and she will need a repeat INR on Saturday. October 10, 2017: This patient has been at [facility] for rehab since discharge from [facility] after her hip surgery. Her family relates that she has not been doing very well with physical therapy, and has been complaining more recently of weakness and fatigue whenever they try to get her to stand up. She apparently was evaluated yesterday at the group home and found to have heme positive stools. Labs were ordered, and she was found to have significant anemia. In our emergency room hemoglobin was noted at 4 with hematocrit of 13. She had mild hypotension on presentation. She was resuscitated with fluids, and then was given 3 units of packed red blood cells overnight. He was also given 1 dose of vitamin K, 5 mg subcu. She was admitted to the floor this morning, after a call was put out to for urgent consultation. Unfortunately, there was a mixup, and the doctor on-call could not actually see her here. Dr. Gonzalez of GI was contacted this afternoon. Her recent hospital course was reviewed with him, and he recommended that she be transferred to [facility] for urgent upper endoscopy. Today, getting history from the patient is difficult. She has known dementia, and really cannot remember very much of her recent course. Her is also very hard of hearing, and does not seem to have a clear recollection of recent events. He reports she has been having upper abdominal discomfort on and off for the last 6 months, but the patient cannot recall this. She denies recent fever or chills, headaches or dizziness, new eye or ear symptoms, sore throat or cough, chest pain or palpitations, shortness of breath or wheezing, abdominal pain, nausea or vomiting, diarrhea or constipation or dysuria. Medical history: Reports: asthma, atrial fibrillation (Chronic, on chronic Coumadin.), CHF (Chronic diastolic with exacerbations.), COPD ( denied this however.), diabetes, GERD, renal disease, other (pericarditis 06. Environmental allergies. Dementia (mild-moderate). Chronic anticoagulation.). Denies: CVA, hyperlipidemia, hypertension, thyroid disease, TIA Psychiatric history: Reports: anxiety, depression Surgical history ED: Reports: cholecystectomy (Summary 2017.), knee replacement (Left.), tonsillectomy, other (2006 drainage and surgical placement of shunt or other drainage apparatus for pericardial effusion. Skin graft from right proximal thigh to the left frontal scalp.) Home Medications Medication Instructions Recorded Confirmed Type Simvastatin [Zocor] 5 mg PO HS 05/11/15 10/09/17 History Donepezil [Aricept] 10 mg PO HS 09/09/17 10/09/17 History PARoxetine [Paxil] 10 mg PO DAILY 09/09/17 10/09/17 History Pramipexole [Mirapex] 0.125 mg PO TID 09/09/17 09/22/17 History Promethazine [Phenergan] 12.5 mg PO Q6H PRN #20 tab 09/09/17 10/09/17 Rx Cyanocobalamin (Vitamin B-12) 1,000 mcg IV/IM MONTHLY 09/22/17 10/09/17 History [B-12 Compliance] Acetaminophen [Tylenol] 650 mg PO Q6HP PRN tablet 09/27/17 10/09/17 Rx Bisacodyl [Dulcolax] 10 mg ND DAILYP PRN 10/09/17 10/09/17 History Furosemide [Lasix] 40 mg PO BID 10/09/17 10/09/17 History HYDROcodone/APAP 5/325MG [[place] 1 tab PO Q4HP PRN 10/09/17 10/09/17 History 5/325Mg] Ipratropium/Albuterol [Duoneb] 3 ml NEB Q6HP PRN 10/09/17 10/09/17 History Na Phos,M-B/Na Phos,Di-Ba [Fleets 1 dose ND DAILYP PRN 10/09/17 10/09/17 History Adult] Polyethylene Glycol 3350 [Miralax] 17 gm PO DAILYP PRN 10/09/17 10/09/17 History Ranitidine HCl [Zantac] 150 mg PO BID 10/09/17 10/09/17 History Sennosides [Natural Vegetable 8.6 mg PO BID PRN 10/09/17 10/09/17 History Laxative] Spironolactone [Aldactone] 50 mg PO BID 10/09/17 10/09/17 History Allergies Allergy/AdvReac Type Severity Reaction Status Date / Time Zolpidem [ZOLPIDEM] Allergy Intermediate Unknown Verified 09/09/17 11:40 bacitracin [BACITRACIN] Allergy Mild Rash Verified 09/09/17 11:40 moxifloxacin Allergy Unknown Unknown Verified 09/09/17 11:40 soybean [SOYBEAN] Allergy Unknown Rash Verified 09/09/17 11:40 Sulfa (Sulfonamide AdvReac Unknown URINARY Verified 09/09/17 11:40 Antibiotics) RETENTION [SULFA (SULFONAMIDE ANTIBIOTICS)] Family history: Patient really cannot recall. Social history: The patient generally lives with her , [facility] She does not use tobacco, alcohol, drugs. On physical exam, she is a pale, elderly female, who is quite forgetful, but is otherwise awake, cooperative, and alert. [place] temperature is 97.5, heart rate 88, respiratory rate 20, blood pressure 104/55, O2 saturation 96% on 2 L nasal cannula. Head: Normocephalic, atraumatic. Eyes: PERRLA, EOMI, anicteric. Conjunctive are pale. Ears: TMs and canals are clear. Pharynx: Is clear. Neck: Is supple, without obvious lymphadenopathy, JVD, thyromegaly, bruits. Cardiac exam: Shows an irregularly irregular rhythm with normal S1 and S2. There is a 2/6 systolic ejection murmur noted along the left lower sternal border. No rubs or gallops are noted. Lungs: She has fairly diffuse crackles throughout both lung antony. When asked if she is feeling short of breath, she says "yes". Abdomen: Is obese, but soft and nontender, without obvious masses. There is no guarding or rebound. Bowel sounds are active. Extremities: She has significant chronic edema, 3-4+, greater on the right than the left. Edema is not tense. Her family says this is chronic. Neurologic exam: The patient is alert and calm, but very forgetful. She cannot recall having a recent hip fracture repair. Cranial nerves and motor exam are grossly nonfocal. Assessment and plan: 1. GI. She presents with signs and symptoms of significant GI bleed. She presented with hemoglobin of 4 4, which has risen to 7.3 after 3 units of packed red blood cells. She has been fairly stable hemodynamically for the last several hours, without signs of melena or hematochezia, but is certainly at high risk for continued bleeding. -Her case was reviewed with Dr. Gonzalez of GI, as well as Dr. Belcher at [facility]. They have graciously accepted the patient in transfer, so that the patient can have a urgent endoscopy this evening. -A fourth unit of packed red blood cells is being hung currently, as that was ready to go. -Patient was also ordered for 20 mg of IV Lasix, as she is likely a bit wet at the moment. #2. Pulmonary. History of asthma and recent community-acquired pneumonia, with respiratory failure. She did well after BiPAP. 3. Cardiac. History of CHF, right-sided, cor pulmonale, pulmonary hypertension. Diuretics were cut back, after patient developed significant dehydration. -History of chronic atrial fibrillation, with controlled rate. She was therapeutic on her warfarin, but that was reversed with vitamin K last night. This will need to be resumed later, after her GI issues are sorted out. 4. Renal. Chronic kidney disease. She is followed by Dr. Elizabeth. Recent baseline BUN and creatinine appear to have her around 100/2.2. Today's BUN and creatinine are 90 and 1.3, which is improved for her. 5. Hypertension. Hold current blood pressure meds. 6. Neurologic. History of dementia. Continue usual medications. 7. CODE STATUS: The patient has traditionally remained full code. Approximately 75 minutes was spent today, reviewing the patient's case with the ER MD, interviewing and examining the patient, reviewing plan of care with the patient and her family, reviewing the case with GI as well as with the hospitalist at [facility], and writing orders. Discharge diagnosis: Acute GI bleed with severe anemia. Coumadin therapy. A. fib. - Time Spent with Patient Total time spent providing and/or coordinating discharge services: Greater than 30 minutes Medical - DS: Exam - Constitutional Vitals: Vital Signs Temp Pulse Pulse Resp BP BP Pulse Ox 10/10/17 12:02 104/55 10/10/17 12:00 104/54 96 10/10/17 11:45 122/56 10/10/17 10:04 98.1 F 91 H 24 H 105/69 97 10/10/17 09:58 106/63 10/10/17 09:55 98.1 F 87 20 94/60 100 10/10/17 09:30 115/63 10/10/17 09:16 88 100 10/10/17 09:05 82 100 10/10/17 09:01 80 132/121 100 10/10/17 08:31 96 H 119/60 100 10/10/17 08:01 90 106/59 100 10/10/17 08:00 97.6 F 144/64 94 10/10/17 07:31 95 H 103/50 100 10/10/17 07:27 90 109/52 100 10/10/17 07:15 97.5 F 91 H 18 130/52 100 10/10/17 07:01 92 H 130/52 100 10/10/17 06:39 92 H 16 118/54 100 10/10/17 06:31 96 H 119/53 100 10/10/17 06:02 94 H 112/51 100 10/10/17 05:32 95 H 100/63 100 10/10/17 05:02 94 H 96/55 100 10/10/17 04:59 107/68 10/10/17 04:56 91 H 20 107/68 97 10/10/17 04:46 84 77/67 100 10/10/17 04:44 95 H 83/72 100 10/10/17 04:32 95 H 108/69 99 10/10/17 04:14 97.8 F 99 H 20 114/60 100 10/10/17 03:34 97 H 111/55 100 10/10/17 03:32 86/75 10/10/17 03:02 118/105 10/10/17 02:32 98 H 113/57 100 10/10/17 02:02 96 H 97/74 100 10/10/17 02:00 97.6 F 95 H 18 100/67 100 10/10/17 01:57 94 H 109/91 100 10/10/17 01:32 98 H 104/41 82 L 10/10/17 01:17 82 101/48 86 L 10/10/17 01:16 104 H 16 101/48 88 L 10/10/17 01:01 77/53 10/10/17 00:31 106 H 94/41 99 10/10/17 00:00 92 H 124/85 100 10/09/17 23:47 34 L 104/69 79 L 10/09/17 23:31 101 H 111/57 100 10/09/17 23:20 100 H 20 111/52 111/52 100 10/09/17 23:17 21 10/09/17 23:02 91 H 19 121/50 100 10/09/17 22:46 98 H 16 89/63 97 10/09/17 22:30 10 L 115/84 10/09/17 22:16 90 18 110/49 100 10/09/17 22:01 106 H 19 105/50 100 10/09/17 21:46 96 H 16 108/46 100 10/09/17 21:30 27 H 91/64 10/09/17 21:28 96 H 29 H 95/59 99 10/09/17 21:18 98.9 F 104 H 20 95/59 97 Intake and Output 10/10/17 10/10/17 10/10/17 05:59 13:59 21:59 Intake Total 1000 / 1000 1075 / 1075 Output Total 1000 / 1000 Balance 1000 / 1000 75 / 75 Intake: IV 1000 / 1000 1000 / 1000 Sodium Chloride 0.9% 1,000 ml @ 1000 / 1000 1000 / 1000 250 mls/hr IV .Q4H [facility] Rx#: [id number] Oral 75 / 75 Output: Urine Catheter Amount 1000 / 1000 Other: Weight 216 lb 14.4 oz 216 lb 14.4 oz Patient Weight 10/11/17 05:59 Weight 216 lb 14.4 oz Medical - DS: Data Labs on day of discharge: Labs from last 24 hours 10/10/17 10/10/17 10/09/17 11:10 10:59 21:55 WBC RBC Hgb 7.3 L Hct 21.6 L POC Hct < 15.0 L* MCV MCH MCHC RDW Plt Count MPV Gran % Lymph % (Auto) [place] % (Auto) Eos % (Auto) Baso % (Auto) Gran # Lymph # (Auto) [place] # (Auto) Eos # (Auto) Baso # (Auto) POC PT POC INR VBG Lactic Acid POC Sodium 135 Sodium 137 136 POC Potassium 5.0 Potassium 5.3 H 5.0 POC Chloride 93 L Chloride 99 95 L Carbon Dioxide 26 32 H POC Total CO2 34 H Anion Gap 12.0 9.0 POC BUN 103 H* BUN 90 H 101 H* Creatinine 1.3 H 1.3 H POC Creatinine 1.6 H GFR Calculation 39 39 Glucose 117 H 142 H POC Glucose 134 H Uric Acid 6.9 Calcium 7.7 L 8.1 L POC WB Ioniz Calcium 1.10 L Phosphorus 3.3 Magnesium 1.8 Iron 147 H TIBC 197 L Unsat Iron Binding 50 L Transferrin % Sat 74 H Total Bilirubin 0.7 0.5 Direct Bilirubin < 0.2 GGT 16 AST 17 15 ALT 11 13 Alkaline Phosphatase 60 62 Lactate Dehydrogenase 437 H Total Protein 4.4 L 4.4 L Albumin 2.0 L 2.3 L Globulin 2.4 2.1 L Albumin/Globulin Ratio 0.8 L 1.1 Triglycerides 176 H 10/09/17 10/09/17 10/09/17 21:55 21:55 21:45 WBC 15.7 H RBC 1.29 L Hgb 4.4 L* Hct 13.0 L* POC Hct MCV 100.5 H MCH 33.7 MCHC 33.5 RDW 19.8 H Plt Count 201 MPV 7.9 Gran % 87.7 H Lymph % (Auto) 6.9 L [place] % (Auto) 4.2 Eos % (Auto) 1.1 Baso % (Auto) 0.1 Gran # 13.7 H Lymph # (Auto) 1.1 L [place] # (Auto) 0.7 Eos # (Auto) 0.2 Baso # (Auto) 0 POC PT 28.9 H POC INR 2.5 H VBG Lactic Acid 0.7 POC Sodium Sodium POC Potassium Potassium POC Chloride Chloride Carbon Dioxide POC Total CO2 Anion Gap POC BUN BUN Creatinine POC Creatinine GFR Calculation Glucose POC Glucose Uric Acid Calcium POC WB Ioniz Calcium Phosphorus Magnesium Iron TIBC Unsat Iron Binding Transferrin % Sat Total Bilirubin Direct Bilirubin GGT AST ALT Alkaline Phosphatase Lactate Dehydrogenase Total Protein Albumin Globulin Albumin/Globulin Ratio Triglycerides EKG shows atrial fibrillation at a rate of about 120. Low voltage. Medical - DS: A/P - Patient/Caregiver Discharge Instructions Activity: as instructed Diet: Low Sodium (2gm) - Problem Maintenance (1) Atrial fibrillation, chronic Status: Acute (2) Diabetes mellitus Status: Acute Qualifiers: Diabetes mellitus type: type 2 Diabetes mellitus complication status: without complication Diabetes mellitus mcfp insulin use: without adding machine operator use Qualified Code(s): E11.9 - Type 2 diabetes mellitus without complications (3) Anemia Status: Acute Qualifiers: Anemia type: unspecified type Qualified Code(s): D64.9 - Anemia, unspecified (4) Upper GI bleed Status: Acute (5) Bleeding on Coumadin Status: Acute - Follow up Plan Follow up with: Nina Mello MD [Primary Care Provider] - Disposition: [facility] Prognosis: Fair Rehab Potential: Fair I certify that the patient requires SNF services: No Overall status at discharge: patient is not back to baseline Medical - DS: Qual - VTE Deep Vein Thrombosis/Pulmonary Embolism Present on Admission: No
== END 2017-10-10 16:50 | disposition short-term general hospital (02) | DRG 378 ==
LOC: ED 21:17 → MEDSUR 10-10 09:20
PROVIDERS: ADMIT Internal Medicine; ATTEND Internal Medicine

== ENCOUNTER 2017-12-20 15:48 | Inpatient (IN) ==
[2017-12-20] MEDS ORDERED: cefTRIAXone 1 GM VIAL IV ONE (16:37)
--- NOTE | 2017-12-20 17:04 | XRay Report ---
CLINICAL INFORMATION: Shortness of breath CHF COMPARISON: 09/23/2017 FINDINGS: Marked cardiomegaly is unchanged. Mediastinum is unremarkable. Pulmonary vessels are slightly distended and there is mild interstitial edema. No definite infiltrate. IMPRESSION: Mild CHF Interpreted and Authenticated by: Tristian Villareal 12/20/17
[2017-12-20 17:42] LABS: Basophils # (Auto) 0 K/mcL (0.0-0.3); Basophils % (Auto) 0 % (0.0-2.0); Eosinophils # (Auto) 0.1 K/mcL (0.0-0.7); Eosinophils % (Auto) 1.6 % (0.0-7.0); Granulocytes % (Auto) 84.3 % (38.0-78.0); Lymphocytes # (Auto) 0.5 K/mcL (1.5-4.8); Lymphocytes % (Auto) 7.2 % (15.5-49.0); Mean Cell Volume 90.2 fL (80.0-100.0); Mean Corpuscular HGB Conc 32.6 g/dL (31.0-36.0); Mean Corpuscular Hemoglobin 29.4 pg (26.0-34.0); Monocytes # (Auto) 0.5 K/mcL (0.1-0.9); Monocytes % (Auto) 6.9 % (1.0-12.0); Platelet Count 218 K/mcL (140-440); RBC 4.27 M/mcL (4.00-5.20); Red Cell Distribution Width 14.5 % (11.5-14.5)
[2017-12-20 17:50] LABS: Appearance,Urine CLOUDY; Bacteria,Urine 0 /hpf (0); Bilirubin,Urine NEG (NEG); Color,Urine YELLOW; Glucose,Urine (UA) NEGATIVE (NEG); Leukocyte Esterase,Urine NEG /uL (NEG); Mucus,Urine FEW /hpf (0); Protein,Urine NEG (NEG); Specific Gravity,Urine 1.012 (1.000-1.035); Urine Amorphous Crystals FEW /hpf (0); Urine Blood 0.03 mg/dL (<0.03); Urine RBC 2 /hpf (0-1); Urine Squamous Epithelial Cell < 1 /hpf (0-4); Urine WBC 1 /hpf (0-4); Urobilinogen,Urine NEG (NEG)
[2017-12-20 18:06] LABS: ALT/SGPT 14 U/l (0-40); Albumin 3.3 gm/dL (3.2-5.2); Albumin/Globulin Ratio 0.9 (1.0-2.3); Alkaline Phosphatase 79 U/L (39-117); Blood Urea Nitrogen 104 mg/dl (8-23)
[2017-12-20] MEDS ORDERED: FUROSEMIDE 40 MG/4 ML VIAL IV ONE (18:10)
--- NOTE | 2017-12-20 18:30 | Emergency Department Note ---
General Adult HPI - General Chief complaint: Blood Pressure Problem Stated complaint: Hypertension, SOB Time Seen by Provider: 12/20/17 15:55 Source: patient, RN notes reviewed Mode of arrival: EMS Limitations: no limitations - History of Present Illness HPI Narrative: 77-year-old female comes in from [facility] for increasing blood pressure and confusion-blood pressure there was 200/110 although it is normal here. She was recently at [facility] 4 days ago for dehydration on observation status. Since returning to the nursing facility she is gained 11 pounds and has increased shortness of breath. She does have underlying dementia and most of this history is from her who also has some dementia ; her other family members additionally contribute. It sounds like she has relatively brittle heart failure and kidney failure; that is if they give her enough fluid to make her kidneys happy her heart is overloaded and vice versa. She sees Dr. Elizabeth for nephrology and she has a environmental lawyer as well in [place]. I do not see an echocardiogram on record but I did review her records from [facility] and from [facility]. - Related Data Home Medications Medication Instructions Recorded Confirmed Simvastatin [Zocor] 5 mg PO HS 05/11/15 10/09/17 Donepezil [Aricept] 10 mg PO HS 09/09/17 10/10/17 PARoxetine [Paxil] 10 mg PO DAILY 09/09/17 10/10/17 Pramipexole [Mirapex] 0.125 mg PO TID 09/09/17 10/10/17 Cyanocobalamin (Vitamin B-12) 1,000 mcg IV/IM MONTHLY 09/22/17 10/10/17 [B-12 Compliance] Bisacodyl [Dulcolax] 10 mg [place] DAILYP PRN 10/09/17 10/10/17 Furosemide [Lasix] 40 mg PO BID 10/09/17 10/10/17 HYDROcodone/APAP 5/325MG [[place] 1 tab PO Q4HP PRN 10/09/17 10/10/17 5-325Mg] Ipratropium/Albuterol [Duoneb] 3 ml NEB Q6HP PRN 10/09/17 10/10/17 Polyethylene Glycol 3350 [Miralax] 17 gm PO DAILYP PRN 10/09/17 10/10/17 Ranitidine HCl [Zantac] 150 mg PO BID 10/09/17 10/09/17 Sennosides [Natural Vegetable 8.6 mg PO BID PRN 10/09/17 10/09/17 Laxative] Spironolactone [Aldactone] 50 mg PO BID 10/09/17 10/09/17 Previous Rx's Medication Instructions Recorded Promethazine [Phenergan] 12.5 mg PO Q6H PRN #20 tab 09/09/17 Acetaminophen [Tylenol] 650 mg PO Q6HP PRN tablet 09/27/17 0.9 % Sodium Chloride [Saline 10 ml IV Q8 syringe 10/10/17 Flush] Acetaminophen [Tylenol] 650 mg PO Q6HP PRN tablet 10/10/17 HYDROcodone/APAP 5/325MG [[place] 1 tab PO Q4HP PRN tablet 10/10/17 5-325Mg] Ipratropium/Albuterol [Duoneb] 3 ml NEB Q6HRT PRN ampul.neb 10/10/17 Magnesium Hydroxide [Milk of 30 ml PO DAILYP PRN oral.susp 10/10/17 Magnesia] Naloxone HCl [Narcan] 0.1 mg IV Q2MIN PRN vial 10/10/17 Ondansetron [Zofran] 4 mg IV Q6HP PRN vial 10/10/17 Allergies Allergy/AdvReac Type Severity Reaction Status Date / Time Zolpidem [ZOLPIDEM] Allergy Intermediate Unknown Verified 09/09/17 11:40 bacitracin [BACITRACIN] Allergy Mild Rash Verified 09/09/17 11:40 moxifloxacin Allergy Unknown Unknown Verified 09/09/17 11:40 soybean [SOYBEAN] Allergy Unknown Rash Verified 09/09/17 11:40 Sulfa (Sulfonamide AdvReac Unknown URINARY Verified 09/09/17 11:40 Antibiotics) RETENTION [SULFA (SULFONAMIDE ANTIBIOTICS)] Review of Systems Limitations: ROS unobtainable due to patients medical condition Past Medical History - Past Medical History Attestation: Yes: The following information was validated with the patient. Source: old records reviewed, obtained from family Medical history: Reports: asthma, atrial fibrillation, CHF, COPD, dementia, DM, GERD, GI bleed, hyperlipidemia, hypertension, obesity, renal disease Psychiatric history: Reports: anxiety, depression Surgical history ED: Reports: cholecystectomy (Summary 2017.), knee replacement (Left.), tonsillectomy, other (2006 drainage and surgical placement of shunt for pericardial effusion. Skin graft from right proximal thigh to the left frontal scalp. Left hip) - Social History smoking status: Former smoker Alcohol use: Reports: Rarely (beer) Drug use: Reports: none Physical Exam No acute distress resting comfortably. Normocephalic atraumatic. Conjunctive are clear sclerae nonicteric. No nasal discharge or congestion. Wearing nasal cannula oxygen. Oropharynx is pink and moist. Supple without lymphadenopathy thyromegaly. Heart is with irregularly irregular rhythm. Lungs are clear to auscultation bilaterally without wheezes rales rhonchi. She does have some modest dyspnea with exertion but none at rest. Abdomen soft nontender nondistended. +1 pedal edema. Left lower leg shows red skin consistent with mild cellulitis without obvious traumatic injury. Skin exam also shows purpura various spots consistent with her known Coumadin use. She is alert oriented however she has short-term memory issues and is not able to give me much in the way of meaningful history or review of systems. Most history is obtained from her and children Limitations: no limitations Course Vital Signs Temperature 97.4 F 12/20/17 15:50 Pulse Rate 99 H 12/20/17 15:50 Respiratory Rate 18 12/20/17 15:50 Blood Pressure 129/86 12/20/17 15:50 Pulse Oximetry (%) 94 12/20/17 15:50 Temperature 97.4 F 12/20/17 15:50 Pulse Rate 101 H 12/20/17 18:16 Respiratory Rate 20 12/20/17 18:27 Blood Pressure 113/88 12/20/17 18:27 Pulse Oximetry (%) 94 12/20/17 18:16 Medical Decision Making - Lab Data Lab results reviewed: Yes I reviewed the patient's lab results. Result diagrams: 12/20/17 16:59 12/20/17 16:58 Lab Results 12/20/17 12/20/17 12/20/17 Range/Units 16:58 16:58 16:59 WBC 7.3 (4.5-11.0) K/mcL RBC 4.27 (4.00-5.20) M/mcL Hgb 12.6 (12.0-15.0) g/dL Hct 38.5 (36.0-48.0) % MCV 90.2 (80.0-100.0) fL MCH 29.4 (26.0-34.0) pg MCHC 32.6 (31.0-36.0) g/dL RDW 14.5 (11.5-14.5) % Plt Count 218 (140-440) K/mcL MPV 7.5 (7.4-10.4) fL Gran % 84.3 H (38.0-78.0) % Lymph % (Auto) 7.2 L (15.5-49.0) % [place] % (Auto) 6.9 (1.0-12.0) % Eos % (Auto) 1.6 (0.0-7.0) % Baso % (Auto) 0 (0.0-2.0) % Gran # 6.2 (1.8-8.0) K/mcL Lymph # (Auto) 0.5 L (1.5-4.8) K/mcL [place] # (Auto) 0.5 (0.1-0.9) K/mcL Eos # (Auto) 0.1 (0.0-0.7) K/mcL Baso # (Auto) 0 (0.0-0.3) K/mcL PT 28.0 H (11.9-14.5) sec INR 2.6 H (0.9-1.1) VBG Lactic Acid (0.5-2.2) mmol/L Sodium 141 (133-145) mmol/L Potassium 4.3 (3.3-5.1) mmol/L Chloride 94 L (96-108) mmol/L Carbon Dioxide 32 H (22-30) mmol/L Anion Gap 15.0 (8-16) BUN 104 H* (8-23) mg/dl Creatinine 2.0 H (0.6-1.1) mg/dl GFR Calculation 23 Glucose 107 H (70-105) mg/dL Calcium 9.9 (8.6-10.4) mg/dl Total Bilirubin 0.3 (0.0-1.0) mg/dL AST 26 (0-37) U/l ALT 14 (0-40) U/l Alkaline Phosphatase 79 (39-117) U/L NT-Pro-B Natriuret Pep 11464.0 H (0-450) pg/ml Total Protein 7.1 (5.9-8.4) gm/dL Albumin 3.3 (3.2-5.2) gm/dL Globulin 3.8 H (2.2-3.7) gm/dL Albumin/Globulin Ratio 0.9 L (1.0-2.3) Urine Color Urine Appearance Urine pH (5.0-9.0) Ur Specific [place] (1.000-1.035) Urine Protein (NEG) mg/dL Urine Glucose (UA) (NEG) mg/dL Urine Ketones (NEG) mg/dL Urine Occult Blood (<0.03) mg/dL Urine Nitrate (NEG) Urine Bilirubin (NEG) mg/dL Urine Urobilinogen (NEG) mg/dL Ur Leukocyte Esterase (NEG) /uL Urine RBC (0-1) /hpf Urine WBC (0-4) /hpf Ur Squamous Epith Cells (0-4) /hpf Amorphous Crystals (0) /hpf Urine Bacteria (0) /hpf Urine Mucus (0) /hpf Ur Culture Indicated? 12/20/17 12/20/17 Range/Units 17:09 17:10 WBC (4.5-11.0) K/mcL RBC (4.00-5.20) M/mcL Hgb (12.0-15.0) g/dL Hct (36.0-48.0) % MCV (80.0-100.0) fL MCH (26.0-34.0) pg MCHC (31.0-36.0) g/dL RDW (11.5-14.5) % Plt Count (140-440) K/mcL MPV (7.4-10.4) fL Gran % (38.0-78.0) % Lymph % (Auto) (15.5-49.0) % [place] % (Auto) (1.0-12.0) % Eos % (Auto) (0.0-7.0) % Baso % (Auto) (0.0-2.0) % Gran # (1.8-8.0) K/mcL Lymph # (Auto) (1.5-4.8) K/mcL [place] # (Auto) (0.1-0.9) K/mcL Eos # (Auto) (0.0-0.7) K/mcL Baso # (Auto) (0.0-0.3) K/mcL PT (11.9-14.5) sec INR (0.9-1.1) VBG Lactic Acid 0.8 (0.5-2.2) mmol/L Sodium (133-145) mmol/L Potassium (3.3-5.1) mmol/L Chloride (96-108) mmol/L Carbon Dioxide (22-30) mmol/L Anion Gap (8-16) BUN (8-23) mg/dl Creatinine (0.6-1.1) mg/dl GFR Calculation Glucose (70-105) mg/dL Calcium (8.6-10.4) mg/dl Total Bilirubin (0.0-1.0) mg/dL AST (0-37) U/l ALT (0-40) U/l Alkaline Phosphatase (39-117) U/L NT-Pro-B Natriuret Pep (0-450) pg/ml Total Protein (5.9-8.4) gm/dL Albumin (3.2-5.2) gm/dL Globulin (2.2-3.7) gm/dL Albumin/Globulin Ratio (1.0-2.3) Urine Color Yellow Urine Appearance Cloudy Urine pH 5.0 (5.0-9.0) Ur Specific [place] 1.012 (1.000-1.035) Urine Protein Neg (NEG) mg/dL Urine Glucose (UA) Negative (NEG) mg/dL Urine Ketones Neg (NEG) mg/dL Urine Occult Blood 0.03 A (<0.03) mg/dL Urine Nitrate Neg (NEG) Urine Bilirubin Neg (NEG) mg/dL Urine Urobilinogen Neg (NEG) mg/dL Ur Leukocyte Esterase Neg (NEG) /uL Urine RBC 2 H (0-1) /hpf Urine WBC 1 (0-4) /hpf Ur Squamous Epith Cells < 1 (0-4) /hpf Amorphous Crystals Few A (0) /hpf Urine Bacteria 0 (0) /hpf Urine Mucus Few (0) /hpf Ur Culture Indicated? No Arterial blood gas shows pH 7.29 PCO2 83 PO2 of 77 - Radiology Data Radiology results reviewed: Yes I reviewed the patient's radiology results. Chest x-ray shows mild CHF Critical Care Time Critical Care Time: Yes Total Critical Care Time: 50 Attestation: 50 minutes total critical care time which includes initial interview and exam, review of studies, coordination of care, discussion with family, and documentation. I was immediately available to the patient throughout this time Disposition Pt seen by RN POOL/PA only: No Clinical Impression: Chronic kidney disease (CKD), stage III (moderate), Atrial fibrillation, chronic, Cellulitis and abscess of left lower extremity Congestive heart failure Qualifiers: Congestive heart failure type: unspecified Congestive heart failure chronicity : acute on chronic Qualified Code(s): I50.9 - Heart failure, unspecified Respiratory failure Qualifiers: Chronicity: acute on chronic Respiratory failure complication: hypoxia and hypercapnia Qualified Code(s): J96.21 - Acute and chronic respiratory failure with hypoxia; J96.22 - Acute and chronic respiratory failure with hypercapnia Summary: On initial exam and interview patient had normal blood pressure so is not clear what was going on, especially as patient is not really complaining does not give me much history. Chest x-ray shows mild CHF which is not surprising given that per history she is up 11 pounds. BNP is up 10 times what it normally is on review of previous labs so I ordered some IV furosemide; she is clearly volume overloaded She is on her home oxygen with reasonable saturations but she is still having some dyspnea with even mild exertion. She does carry a history of COPD additionally. After discussion with the hospitalist, Dr. Paz, we ordered a blood gas which showed respiratory acidosis with hypercapnia and hypoxia. We started BiPAP down here in the ER but she will be admitted to the unit and will get further respiratory care, including breathing treatments, as well as diuresis. Dr. Paz the hospitalist also discussed the case with Dr. Elizabeth, her labor expediter, in my presence. Her kidney disease appears stable on laboratory and she is making urine Disposition: Xfer As Inpt ([facility]) Condition: Fair Referrals: Nina Mlelo MD [Primary Care Provider] -
[2017-12-20] MEDS ORDERED: NALOXONE HCL 0.4 MG/ML VIAL IV PRN (19:47)
[2017-12-20] MEDS ORDERED: VANCOMYCIN PER PHARMACY IV ONE (19:47)
[2017-12-20] MEDS ORDERED: ACETAMINOPHEN 325 MG TABLET PO PRN (19:47)
[2017-12-20] MEDS ORDERED: ONDANSETRON 4 MG/2 ML VIAL IV PRN (19:47)
[2017-12-20] MEDS ORDERED: AZITHROMYCIN 250 MG TABLET PO ONE (19:47)
--- NOTE | 2017-12-20 20:20 | Internal Med History&Physical ---
Medical - H&P: [facility] Patient information: Note initiated : 12/20/17 at 8:19 pm Service Date, if different from initiated Date: [] Patient: Tana Frederick a 77 y/o F admitted on 12/20/17 for Hypertension, SOB. Chief Complaint: [] History of present illness: Ms. Frederick is a 77 year old Female with h/o severe diastolic CHF, COPD, severe cor pulmonale, CKD stage 4, presents to the ER from [place] for shortness of breath, tachcyardia and not feeling well. The reason for visit is that she had elevated heart rate to 109 (as per ) and some shortness of breath, which was new for her and hence sent to the ER for further evaluation. patient has h/o dementia, and is unable to provide any meaningful history, She denies any complaints though her at bedside, is also unable to provide any meaningful history, as he only notes that the SNF send her here for irregular / elevated heart rate and shortness of breath The patient was recently in [facility], 4 days ago, where they diagnosed her with dehydration and hypotension, Gave her some IVF and then I beleive cut back her diuretics. The patient was sent back to SNF. In the ER here the patient was noted to be drowsy, unable to provide much history, labs unremarkable except elevated bun 104 and creat of 2.0, which was same as her last admission. X ray chest shows mild chf, INR was 2.6 on coumadin. Patient was presented to the hospital for admission for chf exacerbation. The patient also had erythema on the left leg, and patient was given rocephin for possible cellutiltis for same. The patient has extensive comorbid history, is full code as per POST from [place] and on my eval was not breathing right, Blood gas was done which shows acute on chr resp failure with co2 retention, patient will be admitted to [facility] and placed on bipap. one dose of lasix given. Albert cath to be placed. ROS unobtainable: due to mental status (pt denies any complaints. ) Medical - H&P: [facility] Medical history: Medical History Congestive heart failure (Acute) Congestive heart failure (CHF) (Acute) Weakness (Acute) Hypoxia (Acute) UTI (urinary tract infection) (Resolved) Chronic kidney disease (CKD), stage III (moderate) (Acute) Morbid obesity (Acute) Atrial fibrillation (Acute) Heart failure, diastolic, with acute decompensation (Acute) Post-op bleeding (Acute) Denture stomatitis (Acute) GI bleed COPD Cor pulmonale. Surgical history: right hip replacement. Family history: reviewed and not pertinent Social history: lives in SNF, unable to determine rest. Medical - H&P: Meds Home Medications Medication Instructions Recorded Confirmed Type Simvastatin [Zocor] 5 mg PO HS 05/11/15 12/20/17 History Donepezil [Aricept] 10 mg PO HS 09/09/17 12/20/17 History PARoxetine [Paxil] 10 mg PO DAILY 09/09/17 10/10/17 History Pramipexole [Mirapex] 0.125 mg PO TID 09/09/17 10/10/17 History Promethazine [Phenergan] 12.5 mg PO Q6H PRN #20 tab 09/09/17 10/09/17 Rx Cyanocobalamin (Vitamin B-12) 1,000 mcg IV/IM MONTHLY 09/22/17 10/10/17 History [B-12 Compliance] Acetaminophen [Tylenol] 650 mg PO Q6HP PRN tablet 09/27/17 10/10/17 Rx Bisacodyl [Dulcolax] 10 mg [place] DAILYP PRN 10/09/17 10/10/17 History Furosemide [Lasix] 40 mg PO BID 10/09/17 10/10/17 History HYDROcodone/APAP 5/325MG [[place] 1 tab PO Q4HP PRN 10/09/17 10/10/17 History 5-325Mg] Ipratropium/Albuterol [Duoneb] 3 ml NEB Q6HP PRN 10/09/17 10/10/17 History Polyethylene Glycol 3350 [Miralax] 17 gm PO DAILYP PRN 10/09/17 10/10/17 History Ranitidine HCl [Zantac] 150 mg PO BID 10/09/17 10/09/17 History Sennosides [Natural Vegetable 8.6 mg PO BID PRN 10/09/17 10/09/17 History Laxative] Spironolactone [Aldactone] 50 mg PO BID 10/09/17 10/09/17 History 0.9 % Sodium Chloride [Saline 10 ml IV Q8 syringe 10/10/17 Rx Flush] Acetaminophen [Tylenol] 650 mg PO Q6HP PRN tablet 10/10/17 Rx HYDROcodone/APAP 5/325MG [[place] 1 tab PO Q4HP PRN tablet 10/10/17 Rx 5-325Mg] Ipratropium/Albuterol [Duoneb] 3 ml NEB Q6HRT PRN ampul.neb 10/10/17 Rx Magnesium Hydroxide [Milk of 30 ml PO DAILYP PRN oral.susp 10/10/17 Rx Magnesia] Naloxone HCl [Narcan] 0.1 mg IV Q2MIN PRN vial 10/10/17 Rx Ondansetron [Zofran] 4 mg IV Q6HP PRN vial 10/10/17 Rx Warfarin [Coumadin] 6 mg PO DAILY 12/20/17 12/20/17 History Allergies Allergy/AdvReac Type Severity Reaction Status Date / Time bacitracin [BACITRACIN] Allergy Mild Rash Verified 09/09/17 11:40 soybean [SOYBEAN] Allergy Mild Rash Verified 12/20/17 19:48 moxifloxacin Allergy Unknown Unknown Verified 09/09/17 11:40 Zolpidem [ZOLPIDEM] Allergy Unknown Unknown Verified 12/20/17 19:48 Sulfa (Sulfonamide AdvReac Mild URINARY Verified 12/20/17 19:48 Antibiotics) RETENTION [SULFA (SULFONAMIDE ANTIBIOTICS)] Medical - H&P: Exam - Constitutional Vitals: Temp Pulse Resp BP Pulse Ox 97.4 F 91 H 29 H 119/70 95 12/20/17 15:50 12/20/17 19:47 12/20/17 19:47 12/20/17 19:27 12/20/17 19:47 Exam: GENERAL: The patient is a well-developed, well-nourished in no apparent distress. Is alert and oriented x1. VITAL SIGNS: Reviewed and as noted elsewhere. HEENT: Head is normocephalic and atraumatic. Extraocular muscles are intact. Pupils are equal, round, and reactive to light. Nares appeared normal. Mouth appears any without lesions. Mucous membranes are dry NECK: Normal to inspection, Supple, No lymphadenopathy or thyromegaly. LUNGS: Air entry equal on both sides, pt in mild resp distress, proloned exp phase, no wheezing, pt has mild bi basilar crackles no rhonchi noted. No accessory muscles of respiration HEART: Regular rate and rhythm irregular , S1 and S2 heard, no Gallop, S3 or Rub Noted, No Gross murmur heard. ABDOMEN: Soft, nontender, and nondistended. Positive bowel sounds. No hepatosplenomegaly was noted. EXTREMITIES: No cyanosis, clubbing, rash, edema ++, left leg shows erthema involving on lower 2/3 of the leg. NEUROLOGIC: Cranial nerves II through XII are grossly intact. Motor and Sensory System Grossly Intact PSYCHIATRIC: drowsy, somewhat confused, no agitation noted. SKIN: No ulceration or wounds noted, No jaundice, No rash noted. Medical - H&P: Reslt - Labs CBC & Chem 7: 12/20/17 16:59 12/20/17 16:58 Labs: Short CBC 12/20/17 Range/Units 16:59 WBC 7.3 (4.5-11.0) K/mcL Hgb 12.6 (12.0-15.0) g/dL Hct 38.5 (36.0-48.0) % Plt Count 218 (140-440) K/mcL BMP 12/20/17 16:58 Sodium 141 Potassium 4.3 Chloride 94 L Carbon Dioxide 32 H BUN 104 H* Creatinine 2.0 H Glucose 107 H Calcium 9.9 Liver Function 12/20/17 Range/Units 16:58 Total Bilirubin 0.3 (0.0-1.0) mg/dL AST 26 (0-37) U/l ALT 14 (0-40) U/l Alkaline Phosphatase 79 (39-117) U/L Albumin 3.3 (3.2-5.2) gm/dL Urine 12/20/17 Range/Units 17:09 Urine Color Yellow Urine Appearance Cloudy Urine pH 5.0 (5.0-9.0) Ur Specific [place] 1.012 (1.000-1.035) Urine Protein Neg (NEG) mg/dL Urine Glucose (UA) Negative (NEG) mg/dL Medical - H&P: A/P - Narrative A/P Narrative: A/P Acute on chr hypoxic and hypercapnic respiratory failure: due to chf and copd exacerbation, treat underlying cause, bipap for now, trend abg, intubated if resp condition worsens. Acute copd exacerbation: IV steroids, Zithromax and duonebs for now, no pna on chest x ray CHF exacerbation: chest x ray shows mild chf, pt is 11lbs overweight since last admit, plan to give one dose of IV lasix and monitor for response, albert to be placed. I/O monitoring, monitor on tele. acute on chr renal failure: buN > 100, creat 2.0, pt clearly could have uremic encephalopathy too, Dr Elizabeth consulted, noted not to be candidate for HD Acute cor pulmonale: get echo to evaluate cardiac function, diuresis for now, Acute GI Bleed: Recently admitted for gib, treated by endoscopy as per patients , it seems pt is back on coumadin, bid ppi for now AFib: rate controlled, intermittently elevated, on coumadin, monitor Chr anticoagulation: INR 2.6, pharmacy to dose coumadin Cellulitis: left leg, no e/o sepsis, IV vancomycin, check procalcitonin. Dementia: Resume home meds Will resume home meds for HTN/ HLD/ Restless legs once home meds verified. Fall precautions Full code status as per POST Over all has very poor prognosis, I am not sure if family understands the poor clinical picture of the patient. for now atleast will keep pt full code.
[2017-12-20] MEDS: methylPREDNISolone SOD SUCC 125 MG/2 ML VIAL IV SCH (20:45)
[2017-12-20] MEDS: OMEPRAZOLE 20 MG CAPSULE PO SCH (20:45)
[2017-12-20] MEDS: VANCOMYCIN 1,500 MG in 0.9 % SODIUM CHLORIDE 500 ML IV ONE (20:46)
[2017-12-20] MEDS ORDERED: VANCOMYCIN 1,500 MG in 0.9 % SODIUM CHLORIDE 500 ML IV ONE (21:00)
[2017-12-20] MEDS: IPRATROPIUM/ALBUTEROL 3 ML AMPUL.NEB NEB SCH (22:45)
[2017-12-21] MEDS: methylPREDNISolone SOD SUCC 125 MG/2 ML VIAL IV SCH ×4 (00:12→22:11)
[2017-12-21] MEDS: VANCOMYCIN 1,500 MG in 0.9 % SODIUM CHLORIDE 500 ML IV ONE (00:12)
[2017-12-21 01:07] LABS: Hemoglobin A1C 5.1 % HGB (4.0-6.0)
[2017-12-21] MEDS: oxyCODONE/APAP 5/325MG TABLET PO PRN ×4 (01:26→20:03)
[2017-12-21] MEDS: IPRATROPIUM/ALBUTEROL 3 ML AMPUL.NEB NEB SCH ×6 (04:14→22:06)
[2017-12-21 06:06] LABS: Basophils # (Auto) 0 K/mcL (0.0-0.3); Basophils % (Auto) 0 % (0.0-2.0); Eosinophils # (Auto) 0.2 K/mcL (0.0-0.7); Eosinophils % (Auto) 2.4 % (0.0-7.0); Granulocytes % (Auto) 94.8 % (38.0-78.0); Lymphocytes # (Auto) 0.2 K/mcL (1.5-4.8); Lymphocytes % (Auto) 2.2 % (15.5-49.0); Mean Cell Volume 90.5 fL (80.0-100.0); Mean Corpuscular HGB Conc 32.9 g/dL (31.0-36.0); Mean Corpuscular Hemoglobin 29.8 pg (26.0-34.0); Monocytes # (Auto) 0.1 K/mcL (0.1-0.9); Monocytes % (Auto) 0.6 % (1.0-12.0); Platelet Count 206 K/mcL (140-440); RBC 3.38 M/mcL (4.00-5.20); Red Cell Distribution Width 14.3 % (11.5-14.5)
[2017-12-21 06:51] LABS: ALT/SGPT 12 U/l (0-40); Albumin/Globulin Ratio 0.9 (1.0-2.3); Alkaline Phosphatase 79 U/L (39-117); Bilirubin,Direct < 0.2 mg/dL (0.0-0.3); Blood Urea Nitrogen 105 mg/dl (8-23); Gamma Glutamyl Transpeptidase 16 U/L (5-36); Uric Acid 13.2 mg/dL (2.5-8.0)
[2017-12-21] MEDS ORDERED: BENZONATATE 100 MG CAPSULE PO PRN (08:13)
--- NOTE | 2017-12-21 08:39 | Internal Med Progress Note ---
Medical - PN: Subj Patient information: Note initiated : 12/21/17 at 8:36 am Service Date, if different from initiated Date: [] Patient: Tana Frederick a 77 y/o F admitted on 12/20/17 for Hypertension, SOB. Chief Complaint: [] Interval history: Ms. Frederick is a 77 year old Female with h/o severe diastolic CHF, COPD, severe cor pulmonale, CKD stage 4, presents to the ER from [place] for shortness of breath, tachcyardia and not feeling well. The reason for visit is that she had elevated heart rate to 109 (as per ) and some shortness of breath, which was new for her and hence sent to the ER for further evaluation. patient has h/o dementia, and is unable to provide any meaningful history, She denies any complaints though her at bedside, is also unable to provide any meaningful history, as he only notes that the SNF send her here for irregular / elevated heart rate and shortness of breath The patient was recently in [facility], 4 days ago, where they diagnosed her with dehydration and hypotension, Gave her some IVF and then I beleive cut back her diuretics. The patient was sent back to SNF. In the ER here the patient was noted to be drowsy, unable to provide much history, labs unremarkable except elevated bun 104 and creat of 2.0, which was same as her last admission. X ray chest shows mild chf, INR was 2.6 on coumadin. Patient was presented to the hospital for admission for chf exacerbation. The patient also had erythema on the left leg, and patient was given rocephin for possible cellutiltis for same. The patient has extensive comorbid history, is full code as per POST from [place] and on my eval was not breathing right, Blood gas was done which shows acute on chr resp failure with co2 retention, patient will be admitted to [facility] status and placed on bipap. one dose of lasix given. Albert cath to be placed. Dec 21 patient seen and examined, no acute overnight events, patient tolerated BiPAP well, repeat ABG done last night showed improved pH at 7.36. This morning, patient's by the bedside and patient's son came to visit. The patient has no complaints. She is much more awake, she is hungry and has ordered breakfast. I reviewed her CODE STATUS with her again and it seems that the patient wished to be DNR. The overall poor prognosis of the patient was reviewed with the patient, her son and the . Plan to keep the patient off BiPAP for a couple of hours and see how she does repeat a blood gas around 10:00 in the morning. Continue steroids. 2. Resume home medications including her diuretic regimen. Old tramadol. Pertinent ROS: Denies headache, dizziness Denies chest pain, palpitations Denies cough or shortness of breath Denies abdominal pain, nausea or vomiting. - Constitutional Vitals: Vital Signs Temp Pulse Resp BP Pulse Ox 96.4 F L 87 16 108/88 95 12/21/17 08:00 12/21/17 07:08 12/21/17 08:00 12/21/17 08:00 12/21/17 08:00 Period Temp Pulse Resp BP Sys/Roca Pulse Ox Last 24 Hr 96.4 F-98.8 F 81-102 14-29 98-134/55-93 89-100 Intake and Output 12/20/17 12/21/17 12/21/17 21:59 05:59 13:59 Output Total 600 / 600 Balance -600 / -600 Weight 200 lb Intake & Output: Intake & Output 12/20/17 12/21/17 12/21/17 21:59 05:59 13:59 Output Total 600 / 600 Balance -600 / -600 Weight 200 lb Output: Urine Catheter Amount 600 / 600 Exam: Constitutional; Afebrile, cooperative, alert, not in distress. Eyes- No icterus, , No periorbital swelling Ears- Ext ear normal, hearing ,moderately hard to conversation. Neck- Midline trachea, supple Respiratory system: Air Entry equal on both sides, mild exp wheezing, air entry better today. CVS- Rate rhythm irregular, S1,S2 heard, no gallop, no rub. Abdomen- Soft nontender abdomen, no organomegaly, no tenderness, no guarding or rigidity, SENIOR TELECOMMUNICATIONS CONSULTANT- AOOx2, moving all extremities, no gross focal deficit noted. Medical - PN: Obj Da - Labs CBC & Chem 7: 12/21/17 04:00 12/21/17 04:00 Labs: Abnormal Lab Results 12/21/17 12/21/17 12/21/17 04:00 04:00 04:00 RBC 3.38 L Hgb 10.1 L Hct 30.6 L Gran % 94.8 H Lymph % (Auto) 2.2 L [place] % (Auto) 0.6 L Gran # 9.5 H Lymph # (Auto) 0.2 L PT 28.9 H INR 2.7 H Chloride 94 L Carbon Dioxide Anion Gap 17.0 H BUN 105 H* Creatinine 2.0 H Glucose Uric Acid 13.2 H Phosphorus 4.6 H NT-Pro-B Natriuret Pep Albumin 3.0 L Globulin Albumin/Globulin Ratio 0.9 L Urine Occult Blood Urine RBC Amorphous Crystals 12/20/17 12/20/17 12/20/17 17:09 16:59 16:58 RBC Hgb Hct Gran % 84.3 H Lymph % (Auto) 7.2 L [place] % (Auto) Gran # Lymph # (Auto) 0.5 L PT INR Chloride 94 L Carbon Dioxide 32 H Anion Gap BUN 104 H* Creatinine 2.0 H Glucose 107 H Uric Acid Phosphorus NT-Pro-B Natriuret Pep 59824.0 H Albumin Globulin 3.8 H Albumin/Globulin Ratio 0.9 L Urine Occult Blood 0.03 A Urine RBC 2 H Amorphous Crystals Few A 12/20/17 16:58 RBC Hgb Hct Gran % Lymph % (Auto) [place] % (Auto) Gran # Lymph # (Auto) PT 28.0 H INR 2.6 H Chloride Carbon Dioxide Anion Gap BUN Creatinine Glucose Uric Acid Phosphorus NT-Pro-B Natriuret Pep Albumin Globulin Albumin/Globulin Ratio Urine Occult Blood Urine RBC Amorphous Crystals Meds: Medications Acetaminophen (Tylenol) 650 mg PO Q6HP PRN PRN Reason: PAIN/FEVER > 101 Albuterol/Ipratropium (Duoneb) 3 ml NEB Q4HRT [facility] Last Admin: 12/21/17 07:15 Dose: 3 ml Azithromycin (Zithromax) 250 mg PO DAILY [facility] Stop: 12/24/17 09:01 Benzonatate (Tessalon) 200 mg PO TIDP PRN PRN Reason: Cough Calcitriol (Rocaltrol) 0.25 mcg PO DAILY [facility] Donepezil HCl (Aricept) 10 mg PO HS [facility] Furosemide (Lasix) 80 mg PO BID [facility] Methylprednisolone Sodium Succinate (Solu-Medrol) 62.5 mg IV Q8 [facility] Last Admin: 12/21/17 05:36 Dose: 62.5 mg Metolazone (Zaroxolyn) 5 mg PO DAILY [facility] Naloxone HCl (Narcan) 0.1 mg IV Q2MIN PRN PRN Reason: Opiate Reversal Non-Formulary Medication (Simvastatin [Zocor]) 5 mg PO HS [facility] Omeprazole (Prilosec) 20 mg PO BIDAC [facility] Last Admin: 12/20/17 20:45 Dose: 20 mg Ondansetron HCl (Zofran) 4 mg IV Q4HP PRN PRN Reason: Nausea And Vomiting Oxycodone/Acetaminophen (Percocet 5-325 Mg) 1 tab PO Q4HP PRN PRN Reason: PAIN LEVEL 3-6 Last Admin: 12/21/17 01:26 Dose: 1 tab Pantoprazole Sodium (Protonix) 40 mg PO BID [facility] Pramipexole Dihydrochloride (Mirapex) 3 mg PO ONCE [facility] Ropinirole HCl (Requip) 0.25 mg PO HS [facility] Spironolactone (Aldactone) 50 mg PO BID [facility] Vancomycin HCl (Vancomycin Per Pharmacy) 1 order IV ONCE [facility] Stop: 12/20/17 19:48 Last Admin: 12/20/17 20:46 Dose: 1 order Warfarin Sodium (Coumadin Per Pharmacy) 1 order PO UD [facility] Warfarin Sodium (Coumadin) 2 mg PO ONCE@1400 ONE Stop: 12/21/17 14:01 Medical - PN: A/P - Time Spent With Patient Total time spent is greater than 50% in coordination of care (as documented) at patient's floor/unit and/or counseling patient: - Narrative A/P Narrative: A/P Acute on chr hypoxic and hypercapnic respiratory failure: due to chf and copd exacerbation, treat underlying cause, bipap prn for now, repeat abg later, Pt is DNR now. but ok with bipap. Acute copd exacerbation: IV steroids, Zithromax and duonebs for now, no pna on chest x ray, continue present treatment. CHF exacerbation: chest x ray shows mild chf, pt is 11lbs overweight since last admit, plan to give one dose of IV lasix and monitor for response, albert to be placed. I/O monitoring, monitor on tele. she is neg 600 cc overnight, breathing much better, resume oral diuretics. acute on chr renal failure: buN > 100, creat 2.0, pt clearly could have uremic encephalopathy too, Dr Elizabeth consulted, noted not to be candidate for HD. Acute cor pulmonale: get echo to evaluate cardiac function, diuresis for now, Acute GI Bleed: Recently admitted for gib, treated by endoscopy as per patients , it seems pt is back on coumadin, bid ppi for now AFib: rate controlled, intermittently elevated, on Coumadin, monitor Chr anticoagulation: INR 2.7, pharmacy to dose Coumadin Cellulitis: left leg, no e/o sepsis, IV vancomycin, procalctionin is 0.3. clinically improving. Dementia: Resume home meds Will resume home meds for HTN/ HLD/ Restless legs once home meds verified. Fall precautions Medical - PN: Qual - VTE Deep Vein Thrombosis/Pulmonary Embolism Present on Admission: Yes
[2017-12-21] MEDS: SPIRONOLACTONE 25 MG TABLET PO SCH ×2 (09:51→20:04)
[2017-12-21] MEDS: OMEPRAZOLE 20 MG CAPSULE PO SCH ×2 (09:51→16:42)
[2017-12-21] MEDS: PANTOPRAZOLE 40 MG TABLET PO SCH ×2 (09:51→16:42)
[2017-12-21] MEDS: METOLAZONE 2.5 MG TABLET PO SCH (09:52)
[2017-12-21] MEDS: AZITHROMYCIN 250 MG TABLET PO SCH (09:52)
[2017-12-21] MEDS: CALCITRIOL 0.25 MCG CAPSULE PO SCH (09:56)
[2017-12-21] MEDS ORDERED: VANCOMYCIN PER PHARMACY IV SCH (10:15)
[2017-12-21] MEDS: FUROSEMIDE 80 MG TABLET PO SCH ×2 (10:22→20:03)
--- NOTE | 2017-12-21 12:01 | Nephrology Progress Note ---
Subjective Patient information: Note initiated : 12/21/17 at 11:57 am Service Date, if different from initiated Date: [] Patient: Tana Frederick 77 y/o F admitted on 12/20/17 for Hypertension, SOB. Chief Complaint: Reviewed the medical records. Objective - Vital Signs Vital signs: Vital Signs Temp Pulse Resp BP Pulse Ox 12/21/17 08:00 96.4 F L 16 108/88 95 12/21/17 07:08 86 17 100 12/21/17 04:03 97.4 F 82 95 12/21/17 03:45 91 H 114/64 94 12/21/17 00:29 97.6 F 89 17 121/75 97 12/21/17 00:22 98.0 F 93 H 16 121/75 94 12/20/17 22:49 88 15 96 12/20/17 22:23 93 H 91 12/20/17 22:01 101 H 116/65 89 L 12/20/17 21:34 86 97 12/20/17 21:31 93 H 132/93 97 12/20/17 21:18 81 101/83 97 12/20/17 21:01 93 H 112/86 94 12/20/17 20:48 89 112/68 96 12/20/17 20:45 89 125/76 98 12/20/17 20:31 93 H 98/55 92 12/20/17 20:16 87 119/68 96 12/20/17 20:03 98.8 F 95 H 134/72 98 12/20/17 19:47 91 H 29 H 95 12/20/17 19:31 19 113/69 12/20/17 19:27 91 H 19 119/70 99 12/20/17 19:16 119/70 12/20/17 19:02 16 110/69 12/20/17 18:46 22 119/75 12/20/17 18:32 20 113/75 12/20/17 18:27 20 113/88 12/20/17 18:16 101 H 21 113/88 94 12/20/17 18:01 89 16 101/67 93 12/20/17 17:46 88 16 120/68 92 12/20/17 17:32 16 113/62 12/20/17 17:17 93 H 14 121/71 96 12/20/17 17:07 97 H 19 112/69 96 12/20/17 17:04 102 H 21 107/65 97 12/20/17 17:01 95 H 18 107/65 98 12/20/17 16:53 21 106/65 12/20/17 16:51 88 20 116/64 100 12/20/17 16:49 90 24 H 104/65 97 12/20/17 16:46 94 H 20 120/66 98 12/20/17 16:31 25 H 108/83 12/20/17 16:25 96 H 18 111/66 93 12/20/17 16:20 96 H 17 111/66 100 12/20/17 15:50 97.4 F 99 H 18 129/86 94 Intake and Output 12/20/17 12/21/17 12/21/17 21:59 05:59 13:59 Intake Total 120 / 120 Output Total 600 / 600 Balance -600 / -600 120 / 120 Intake: Oral 120 / 120 Output: Urine Catheter Amount 600 / 600 Other: Meal egg salad sandwich Percent of Meal Consumed 50% Feeding Ability Independent Weight 200 lb 200 lb Patient Weight 12/22/17 05:59 Weight 200 lb Intake & Output: Intake & Output 12/20/17 12/21/17 12/21/17 21:59 05:59 13:59 Intake Total 120 / 120 Output Total 600 / 600 Balance -600 / -600 120 / 120 Weight 200 lb 200 lb Intake: Oral 120 / 120 Output: Urine Catheter Amount 600 / 600 Other: Meal egg salad sandwich Percent of Meal Consumed 50% Feeding Ability Independent - Lab 12/21/17 04:00 12/21/17 04:00 Most recent lab results Calcium 9.3 mg/dl (8.6-10.4) 12/21/17 04:00 Phosphorus 4.6 mg/dL (2.7-4.5) H 12/21/17 04:00 Magnesium 1.9 mg/dL (1.6-2.5) 12/21/17 04:00 Assessment and Plan (1) Chronic kidney disease (CKD), stage III (moderate) Status: Acute Comment: Reviewed the records and Dr. Schwarz plan. It seems she is better this morning. Her renal function vary significantly with vloume status. Since she is lot more alert this morning, I do not believe she has a significant component of uremia. I agree with Dr. Schwarz plan.
[2017-12-21] MEDS ORDERED: WARFARIN 2 MG TABLET PO ONE (14:00)
[2017-12-21] MEDS ORDERED: PRAMIPEXOLE 1 MG TABLET PO SCH (21:00)
[2017-12-21] MEDS ORDERED: SIMVASTATIN 10 MG TABLET PO SCH (21:00)
[2017-12-21] MEDS ORDERED: DONEPEZIL 10 MG TABLET PO SCH (21:00)
[2017-12-21] MEDS ORDERED: rOPINIRole 0.25 MG TABLET PO SCH (21:00)
[2017-12-22] MEDS: oxyCODONE/APAP 5/325MG TABLET PO PRN ×2 (01:16→08:12)
[2017-12-22] MEDS: IPRATROPIUM/ALBUTEROL 3 ML AMPUL.NEB NEB SCH ×6 (04:13→23:05)
[2017-12-22] MEDS: methylPREDNISolone SOD SUCC 125 MG/2 ML VIAL IV SCH ×3 (05:23→21:31)
[2017-12-22 05:44] LABS: Basophils # (Auto) 0 K/mcL (0.0-0.3); Basophils % (Auto) 0 % (0.0-2.0); Eosinophils # (Auto) 0.3 K/mcL (0.0-0.7); Eosinophils % (Auto) 2.8 % (0.0-7.0); Granulocytes % (Auto) 94.1 % (38.0-78.0); Lymphocytes # (Auto) 0.2 K/mcL (1.5-4.8); Lymphocytes % (Auto) 1.9 % (15.5-49.0); Mean Cell Volume 89.9 fL (80.0-100.0); Mean Corpuscular HGB Conc 33.2 g/dL (31.0-36.0); Mean Corpuscular Hemoglobin 29.9 pg (26.0-34.0); Monocytes # (Auto) 0.1 K/mcL (0.1-0.9); Monocytes % (Auto) 1.2 % (1.0-12.0); Platelet Count 240 K/mcL (140-440); RBC 3.29 M/mcL (4.00-5.20); Red Cell Distribution Width 14.5 % (11.5-14.5)
[2017-12-22 06:37] LABS: ALT/SGPT 17 U/l (0-40); Albumin 2.9 gm/dL (3.2-5.2); Albumin/Globulin Ratio 0.9 (1.0-2.3); Alkaline Phosphatase 71 U/L (39-117); Bilirubin,Direct < 0.2 mg/dL (0.0-0.3); Blood Urea Nitrogen 115 mg/dl (8-23); Gamma Glutamyl Transpeptidase 16 U/L (5-36); Uric Acid 13.7 mg/dL (2.5-8.0)
[2017-12-22] MEDS: OMEPRAZOLE 20 MG CAPSULE PO SCH ×2 (08:11→17:44)
[2017-12-22] MEDS: CALCITRIOL 0.25 MCG CAPSULE PO SCH (08:11)
[2017-12-22] MEDS: SPIRONOLACTONE 25 MG TABLET PO SCH ×2 (08:11→20:16)
[2017-12-22] MEDS: PANTOPRAZOLE 40 MG TABLET PO SCH ×2 (08:11→17:44)
[2017-12-22] MEDS: AZITHROMYCIN 250 MG TABLET PO SCH (08:12)
[2017-12-22] MEDS: METOLAZONE 2.5 MG TABLET PO SCH (08:12)
[2017-12-22] MEDS: FUROSEMIDE 80 MG TABLET PO SCH (08:57)
--- NOTE | 2017-12-22 10:26 | XRay Report ---
CLINICAL INFORMATION: Follow up CHF COMPARISON: 12/20/2017 FINDINGS: Marked cardiomegaly is unchanged. Mediastinum is unremarkable. The pulmonary vessels returned to normal in caliber. The interstitial edema is nearly resolved. Moderate bilateral scarring noted - no infiltrates or effusions IMPRESSION: Interval resolution CHF Interpreted and Authenticated by: Tristian Villareal 12/22/17
--- NOTE | 2017-12-22 12:35 | Internal Med Progress Note ---
Medical - PN: Subj Patient information: Note initiated : 12/22/17 at 12:33 pm Service Date, if different from initiated Date: [] Patient: Tana Frederick a 77 y/o F admitted on 12/20/17 for Hypertension, SOB. Chief Complaint: [] Interval history: Ms. Frederick is a 77 year old Female with h/o severe diastolic CHF, COPD, severe cor pulmonale, CKD stage 4, [place] the ER [place] for shortness of breath, tachcyardia and not feeling well. The reason for visit is that she had elevated heart rate to 109 (as per ) and some shortness of breath, which was new for her and hence sent to the ER for further evaluation. patient has h/o dementia, and is unable to provide any meaningful history, She denies any complaints though her at bedside, is also unable to provide any meaningful history, as he only notes that the SNF send her here for irregular / elevated heart rate and shortness of breath The patient was recently in [facility], 4 days ago, where they diagnosed her with dehydration and hypotension, Gave her some IVF and then I beleive cut back her diuretics. The patient was sent back to SNF. In the ER here the patient was noted to be drowsy, unable to provide much history, labs unremarkable except elevated bun 104 and creat of 2.0, which was same as her last admission. X ray chest shows mild chf, INR was 2.6 on coumadin. Patient was presented to the hospital for admission for chf exacerbation. The patient also had erythema on the left leg, and patient was given rocephin for possible cellutiltis for same. The patient has extensive comorbid history, is full code as per POST from [place] and on my eval was not breathing right, Blood gas was done which shows acute on chr resp failure with co2 retention, patient will be admitted to [facility] status and placed on bipap. one dose of lasix given. Albert cath to be placed. Dec 21 patient seen and examined, no acute overnight events, patient tolerated BiPAP well, repeat ABG done last night showed improved pH at 7.36. This morning, patient's by the bedside and patient's son came to visit. The patient has no complaints. She is much more awake, she is hungry and has ordered breakfast. I reviewed her CODE STATUS with her again and it seems that the patient wished to be DNR. The overall poor prognosis of the patient was reviewed with the patient, her son and the . Plan to keep the patient off BiPAP for a couple of hours and see how she does repeat a blood gas around 10:00 in the morning. Continue steroids. 2. Resume home medications including her diuretic regimen. Old tramadol. Dec 22 patient seen examined, sitting up in bed, doing well, mental status was better this AM, answering questions, having breakfast, No complaints no acuter overnight events, BUN elevated to 115 today, nephrology note appreciated. Pertinent ROS: Denies headache, dizziness Denies chest pain, palpitations Denies cough or shortness of breath Denies abdominal pain, nausea or vomiting. - Constitutional Vitals: Vital Signs Temp Pulse Resp BP Pulse Ox 98.4 F 105 H 18 117/81 92 12/22/17 11:34 12/22/17 11:34 12/22/17 11:34 12/22/17 11:34 12/22/17 11:34 Period Temp Pulse Resp BP Sys/Roca Pulse Ox Last 24 Hr 98.0 F-98.6 F 94-105 16-22 99-125/69-82 92-98 Intake and Output 12/21/17 12/22/17 12/22/17 21:59 05:59 13:59 Intake Total 240 / 240 360 / 360 120 / 120 Output Total 350 / 350 250 / 250 Balance -110 / -110 110 / 110 120 / 120 Weight 190 lb 8 oz Intake & Output: Intake & Output 12/21/17 12/22/17 12/22/17 21:59 05:59 13:59 Intake Total 240 / 240 360 / 360 120 / 120 Output Total 350 / 350 250 / 250 Balance -110 / -110 110 / 110 120 / 120 Weight 190 lb 8 oz Intake: Oral 240 / 240 360 / 360 120 / 120 Output: Urine Catheter Amount 350 / 350 250 / 250 Other: Meal Lunch Percent of Meal Consumed 50% 25% Feeding Ability Independent Assist with Tray Set Up Exam: Constitutional; Afebrile, cooperative, alert, not in distress. Eyes- No icterus, , No periorbital swelling Ears- Ext ear normal, Neck- Midline trachea, supple Respiratory system: Air Entry equal on both sides, improved air entry, mild exp wheezing. CVS- Rate rhythm regular, S1,S2 heard, no gallop, no rub. Abdomen- Soft nontender abdomen, no organomegaly, no tenderness, no guarding or rigidity, FACILITY ASSISTANT- AOOx3, moving all extremities, no gross focal deficit noted. Medical - PN: Obj Da - Labs CBC & Chem 7: 12/22/17 04:00 12/22/17 04:00 Labs: Abnormal Lab Results 12/22/17 12/22/17 12/22/17 04:00 04:00 04:00 RBC 3.29 L Hgb 9.8 L Hct 29.6 L Gran % 94.1 H Lymph % (Auto) 1.9 L [place] % (Auto) Gran # 8.9 H Lymph # (Auto) 0.2 L PT 34.7 H INR 3.4 H Chloride 92 L Carbon Dioxide 32 H Anion Gap BUN 115 H* Creatinine 2.3 H Glucose 200 H Uric Acid 13.7 H Phosphorus NT-Pro-B Natriuret Pep Albumin 2.9 L Globulin Albumin/Globulin Ratio 0.9 L Urine Occult Blood Urine RBC Amorphous Crystals 12/21/17 12/21/17 12/21/17 04:00 04:00 04:00 RBC 3.38 L Hgb 10.1 L Hct 30.6 L Gran % 94.8 H Lymph % (Auto) 2.2 L [place] % (Auto) 0.6 L Gran # 9.5 H Lymph # (Auto) 0.2 L PT 28.9 H INR 2.7 H Chloride 94 L Carbon Dioxide Anion Gap 17.0 H BUN 105 H* Creatinine 2.0 H Glucose Uric Acid 13.2 H Phosphorus 4.6 H NT-Pro-B Natriuret Pep Albumin 3.0 L Globulin Albumin/Globulin Ratio 0.9 L Urine Occult Blood Urine RBC Amorphous Crystals 12/20/17 12/20/17 12/20/17 17:09 16:59 16:58 RBC Hgb Hct Gran % 84.3 H Lymph % (Auto) 7.2 L [place] % (Auto) Gran # Lymph # (Auto) 0.5 L PT INR Chloride 94 L Carbon Dioxide 32 H Anion Gap BUN 104 H* Creatinine 2.0 H Glucose 107 H Uric Acid Phosphorus NT-Pro-B Natriuret Pep 33789.0 H Albumin Globulin 3.8 H Albumin/Globulin Ratio 0.9 L Urine Occult Blood 0.03 A Urine RBC 2 H Amorphous Crystals Few A 02/09/18 16:58 RBC Hgb Hct Gran % Lymph % (Auto) [place] % (Auto) Gran # Lymph # (Auto) PT 28.0 H INR 2.6 H Chloride Carbon Dioxide Anion Gap BUN Creatinine Glucose Uric Acid Phosphorus NT-Pro-B Natriuret Pep Albumin Globulin Albumin/Globulin Ratio Urine Occult Blood Urine RBC Amorphous Crystals Meds: Medications Acetaminophen (Tylenol) 650 mg PO Q6HP PRN PRN Reason: PAIN/FEVER > 101 Albuterol/Ipratropium (Duoneb) 3 ml NEB Q4HRT [facility] Last Admin: 12/22/17 11:33 Dose: 3 ml Azithromycin (Zithromax) 250 mg PO DAILY [facility] Stop: 12/24/17 09:01 Last Admin: 12/22/17 08:12 Dose: 250 mg Calcitriol (Rocaltrol) 0.25 mcg PO DAILY [facility] Last Admin: 12/22/17 08:11 Dose: 0.25 mcg Donepezil HCl (Aricept) 10 mg PO HS [facility] Last Admin: 12/21/17 20:03 Dose: 10 mg Furosemide (Lasix) 80 mg PO BID [facility] Last Admin: 12/22/17 08:57 Dose: 80 mg Furosemide (Lasix) 40 mg PO BIDD [facility] Vancomycin HCl 1,000 mg/ (Sodium Chloride) 250 mls @ 250 mls/hr IV ONCE ONE Stop: 12/23/17 09:59 Methylprednisolone Sodium Succinate (Solu-Medrol) 62.5 mg IV Q8 [facility] Last Admin: 12/22/17 05:23 Dose: 62.5 mg Naloxone HCl (Narcan) 0.1 mg IV Q2MIN PRN PRN Reason: Opiate Reversal Omeprazole (Prilosec) 20 mg PO BIDAC [facility] Last Admin: 12/22/17 08:11 Dose: 20 mg Ondansetron HCl (Zofran) 4 mg IV Q4HP PRN PRN Reason: Nausea And Vomiting Oxycodone/Acetaminophen (Percocet 5-325 Mg) 1 tab PO Q4HP PRN PRN Reason: PAIN LEVEL 3-6 Last Admin: 12/22/17 08:12 Dose: 1 tab Pantoprazole Sodium (Protonix) 40 mg PO BIDAC [facility] Last Admin: 12/22/17 08:11 Dose: 40 mg Pramipexole Dihydrochloride (Mirapex) 3 mg PO [facility] Last Admin: 12/21/17 20:04 Dose: 3 mg Ropinirole HCl (Requip) 0.25 mg PO [facility] Last Admin: 12/21/17 20:03 Dose: 0.25 mg Simvastatin (Zocor) 5 mg PO [facility] Last Admin: 12/21/17 20:03 Dose: 5 mg Spironolactone (Aldactone) 50 mg PO BID [facility] Last Admin: 12/22/17 08:11 Dose: 50 mg Vancomycin HCl (Vancomycin Per Pharmacy) 1 order IV [facility] Warfarin Sodium (Coumadin Per Pharmacy) 1 order PO [facility] Medical - PN: A/P - Time Spent With Patient Total time spent is greater than 50% in coordination of care (as documented) at patient's floor/unit and/or counseling patient: - Narrative A/P Narrative: A/P Acute on chr hypoxic and hypercapnic respiratory failure: due to chf and copd exacerbation, treat underlying cause, bipap prn for now, repeat abg shows improved ph and pco2, she is baseline co2 retainer, Pt is DNR now. but ok with bipap. Acute copd exacerbation: IV steroids, Zithromax and duonebs for now, no pna on chest x ray, continue present treatment. switch to orals in AM CHF exacerbation: chest x ray shows mild chf, pt is 11lbs overweight since last admit, plan to give one dose of IV lasix and monitor for response, albert to be placed. I/O monitoring, monitor on tele. she is neg 0 now, breathing much better , resumed oral diuretics. acute on chr renal failure: buN > 115, creat 2.0, Dr Elizabeth consulted, appreciate his help, noted not to be candidate for HD. Acute cor pulmonale: get echo to evaluate cardiac function, diuresis for now, await echo report Acute GI Bleed: Recently admitted for gib, treated by endoscopy as per patients , it seems pt is back on Coumadin, bid ppi for now hb stable. AFib: rate controlled, intermittently elevated, on Coumadin, monitor Chr anticoagulation: INR elevated at 3.4, Cellulitis: left leg, no e/o sepsis, IV vancomycin, procalctionin is 0.3. clinically improving. Dementia: Resumed home meds home meds for HTN/ HLD/ Restless legs DVT on coumadin DNR code status if remains stable can plan d/c back to SNF in AM Medical - PN: Qual - VTE Deep Vein Thrombosis/Pulmonary Embolism Present on Admission: Yes
[2017-12-22] MEDS ORDERED: oxyCODONE/APAP 5/325MG TABLET PO PRN (14:40)
[2017-12-22] MEDS ORDERED: ONDANSETRON 4 MG/2 ML VIAL IV PRN (14:40)
[2017-12-22] MEDS ORDERED: ACETAMINOPHEN 325 MG TABLET PO PRN (14:40)
[2017-12-22] MEDS ORDERED: VANCOMYCIN PER PHARMACY IV SCH (14:40)
[2017-12-22] MEDS ORDERED: NALOXONE HCL 0.4 MG/ML VIAL IV PRN (14:40)
[2017-12-22] MEDS ORDERED: FUROSEMIDE 40 MG TABLET PO SCH (16:00)
[2017-12-22] MEDS: FUROSEMIDE 40 MG TABLET PO SCH (17:44)
[2017-12-22] MEDS: DONEPEZIL 10 MG TABLET PO SCH (20:16)
[2017-12-22] MEDS: SIMVASTATIN 10 MG TABLET PO SCH (20:16)
[2017-12-22] MEDS ORDERED: FUROSEMIDE 80 MG TABLET PO SCH (21:00)
[2017-12-22] MEDS ORDERED: rOPINIRole 0.25 MG TABLET PO SCH (21:00)
[2017-12-22] MEDS ORDERED: PRAMIPEXOLE 1 MG TABLET PO SCH (21:00)
[2017-12-23] MEDS: IPRATROPIUM/ALBUTEROL 3 ML AMPUL.NEB NEB SCH ×6 (02:38→22:46)
[2017-12-23 05:29] LABS: Basophils # (Auto) 0 K/mcL (0.0-0.3); Basophils % (Auto) 0 % (0.0-2.0); Eosinophils # (Auto) 0.2 K/mcL (0.0-0.7); Eosinophils % (Auto) 2.3 % (0.0-7.0); Granulocytes % (Auto) 92.5 % (38.0-78.0); Lymphocytes # (Auto) 0.3 K/mcL (1.5-4.8); Lymphocytes % (Auto) 3.7 % (15.5-49.0); Mean Cell Volume 90.6 fL (80.0-100.0); Mean Corpuscular HGB Conc 32.8 g/dL (31.0-36.0); Mean Corpuscular Hemoglobin 29.7 pg (26.0-34.0); Monocytes # (Auto) 0.1 K/mcL (0.1-0.9); Monocytes % (Auto) 1.5 % (1.0-12.0); Platelet Count 238 K/mcL (140-440); RBC 3.25 M/mcL (4.00-5.20); Red Cell Distribution Width 14.2 % (11.5-14.5)
[2017-12-23 06:16] LABS: ALT/SGPT 15 U/l (0-40); Albumin/Globulin Ratio 0.9 (1.0-2.3); Alkaline Phosphatase 66 U/L (39-117); Bilirubin,Direct < 0.2 mg/dL (0.0-0.3); Blood Urea Nitrogen 126 mg/dl (8-23); Gamma Glutamyl Transpeptidase 17 U/L (5-36); Uric Acid 14.5 mg/dL (2.5-8.0)
[2017-12-23] MEDS: methylPREDNISolone SOD SUCC 125 MG/2 ML VIAL IV SCH (06:26)
[2017-12-23] MEDS: PANTOPRAZOLE 40 MG TABLET PO SCH ×2 (07:37→17:40)
[2017-12-23] MEDS: OMEPRAZOLE 20 MG CAPSULE PO SCH ×2 (07:37→17:40)
[2017-12-23] MEDS ORDERED: VANCOMYCIN 1,000 MG in 0.9 % SODIUM CHLORIDE 250 ML IV ONE (09:00)
--- NOTE | 2017-12-23 09:32 | Nephrology Progress Note ---
Subjective Patient information: Note initiated : 12/23/17 at 9:29 am Service Date, if different from initiated Date: [] Patient: Tana Frederick 77 y/o F admitted on 12/20/17 for Hypertension, SOB. Chief Complaint: slightly more confused this morning. Objective - Vital Signs Vital signs: Vital Signs Temp Pulse Pulse Resp BP BP Pulse Ox 12/23/17 07:44 88 20 12/23/17 06:48 98 F 20 111/62 94 12/23/17 04:00 98.2 F 97 H 20 106/61 95 12/22/17 23:41 98.0 F 93 H 20 108/69 95 12/22/17 23:05 88 13 12/22/17 20:00 98.2 F 105 H 20 122/54 96 12/22/17 19:14 86 21 12/22/17 15:58 98.2 F 12/22/17 15:53 97 12/22/17 15:50 99 H 20 12/22/17 15:08 98.5 F 20 121/66 97 12/22/17 11:34 98.4 F 105 H 18 117/81 92 12/22/17 10:37 97.6 F Intake and Output 12/22/17 12/23/17 12/23/17 21:59 05:59 13:59 Intake Total 350 / 350 Output Total 450 / 450 450 / 450 Balance -450 / -450 -100 / -100 Intake: Oral 350 / 350 Output: Urine Catheter Amount 450 / 450 Void Amount 450 / 450 Other: Meal Dinner toast Percent of Meal Consumed 75% 100% Feeding Ability Independent Independent Weight 193 lb Intake & Output: Intake & Output 12/22/17 12/23/17 12/23/17 21:59 05:59 13:59 Intake Total 350 / 350 Output Total 450 / 450 450 / 450 Balance -450 / -450 -100 / -100 Weight 193 lb Intake: Oral 350 / 350 Output: Urine Catheter Amount 450 / 450 Void Amount 450 / 450 Other: Meal Dinner toast Percent of Meal Consumed 75% 100% Feeding Ability Independent Independent - General Appearance General appearance: well-developed EENT: ATNC Neck: no JVD Respiratory: no kyphosis Cardiology: mid-systolic murmur Integumentary: no rash, rash Neurologic: asterixis - Lab 12/23/17 04:10 12/23/17 04:10 Most recent lab results Calcium 9.4 mg/dl (8.6-10.4) 12/23/17 04:10 Phosphorus 3.6 mg/dL (2.7-4.5) 12/23/17 04:10 Magnesium 1.9 mg/dL (1.6-2.5) 12/23/17 04:10 Assessment and Plan (1) Chronic kidney disease (CKD), stage III (moderate) Status: Acute Comment: The labs are slightly worse, CXR better as far as fluid status is concerned. It is hard to know if CO2 or the uremia that is making her confused. HB has dropped since admission. I will stop all the diuretics and medications that could affect her breathing and mentation. Will give a liter of fluid. If not any better by tomorrow, family wants to consider dialysis.
[2017-12-23] MEDS ORDERED: PHYTONADIONE 10 MG/ML AMPUL PO ONE ×2 (10:00→14:15)
[2017-12-23] MEDS: FUROSEMIDE 40 MG TABLET PO SCH (10:55)
[2017-12-23] MEDS: AZITHROMYCIN 250 MG TABLET PO SCH (10:55)
[2017-12-23] MEDS: CALCITRIOL 0.25 MCG CAPSULE PO SCH (10:55)
[2017-12-23] MEDS: 0.9 % SODIUM CHLORIDE 1,000 ML IV SCH ×3 (10:56→19:30)
[2017-12-23 11:17] LABS: Hepatitis A Antibody IgM NON REACTIVE (NEGATIVE); Hepatitis B Core IgM NON REACTIVE (NEGATIVE); Hepatitis B Surface Antigen NEGATIVE (NEGATIVE); Hepatitis C Virus Antibody NON REACTIVE (NEGATIVE)
[2017-12-23] MEDS: SPIRONOLACTONE 25 MG TABLET PO SCH (11:25)
--- NOTE | 2017-12-23 11:48 | Consultation ---
DATE OF CONSULTATION: 12/23/2017 REASON FOR CONSULTATION: The patient is a 77-year-old female with longstanding history of chronic diastolic heart failure, severe COPD, cor pulmonale, and stage 4 kidney disease. She has been in and out of the hospital for the last several months with either volume overload or hypotension. She had an episode of GI bleed in September and then had a fractured hip. She has been in a assisted facility. She continues to have problems with difficulty breathing. Apparently she was recently at [facility] with volume depletion. She was given saline and discharged. She came in to the hospital here because she was more obtunded. Her BUN and creatinine were significantly elevated as well, and a chest x-ray showed mild congestive heart failure. PAST MEDICAL HISTORY: 1. Chronic kidney disease stage 4 secondary to hypertensive nephrosclerosis and prerenal azotemia. 2. Cor pulmonale with severe right-sided heart failure. 3. Diastolic heart dysfunction. 4. COPD. 5. Recurrent urinary tract infections. 6. Moderate obesity. 7. Chronic atrial fibrillation on anticoagulation. 8. History of GI bleed. 9. History of hip fracture. SURGICAL HISTORY: Recently had a right hip replacement. FAMILY HISTORY: Noncontributory. SOCIAL HISTORY: She lives at the assisted facility. She has no history of alcohol or smoking. REVIEW OF SYSTEMS: Somewhat difficult to obtain review of systems as she is slightly confused but otherwise doing okay. PHYSICAL EXAMINATION: GENERAL: The patient is alert and oriented x1. She tends to lose conversations, but she is __ awake. HEENT: NC/AT. PERRLA. EOMI. No pallor, no cyanosis and no icterus. Fundus examination is not performed. External ear and tympanic membrane appears normal. Oral cavity appears normal with normal mucosa. NECK: Supple. No jugular venous distention. No lymphadenopathy. No thyromegaly. No carotid bruits. LUNGS: Decreased air entry bilaterally. No rales or rhonchi heard. CARDIAC: S1 and S2 heard. No S3, S4. No murmurs. No rubs. ABDOMEN: Soft, nontender. No organomegaly. Positive bowel sounds. No mass. No rebound. EXTREMITIES: Showed trace edema. Difficult to palpate her dorsalis pedis and posterior tibials. No skin rash or joint swelling is noted. NEURO: She is alert, oriented x1. She does lose conversations, but she is moving all four extremities. LABORATORY DATA: White count is 6.8 with a hemoglobin of 9.6 and a platelet count of 238. Sodium 136, potassium 3.6, chloride of 91, CO2 of 30, BUN of 126, creatinine 2.5. ASSESSMENT AND PLAN: Acute on chronic kidney disease. The acute component could have an element of prerenal azotemia, but the problem is that she gets volume overloaded with a small ___ ___ and on the chest x-ray initially did show congestive heart failure. I had a lengthy discussion with the family and Dr. Paz. It is probably the best option for her to initiate hemodialysis and see how she does. She has had recurrent hospitalizations since September and hopefully we could avoid future hospitalizations. Dr. Paz will arrange for placement of a tunneled dialysis catheter. I have written orders for hemodialysis, as well as a hepatitis panel. Thank you Dr. Paz for referring this patient for consultation. I will follow with you. Luz Elena Job ID: [id number] Doc ID: [id number] Stevo Paz MD
[2017-12-23] MEDS ORDERED: WARFARIN 1 MG TABLET PO SCH (14:00)
--- NOTE | 2017-12-23 15:25 | Internal Med Progress Note ---
Medical - PN: Subj Patient information: Note initiated : 12/23/17 at 3:22 pm Service Date, if different from initiated Date: [] Patient: Tana Frederick a 77 y/o F admitted on 12/20/17 for Hypertension, SOB/ CHF, Respiratory Failure. Chief Complaint: [] Interval history: Ms. Frederick is a 77 year old Female with h/o severe diastolic CHF, COPD, severe cor pulmonale, CKD stage 4, [place] for [place]ness of breath, tachcyardia and not feeling well. The reason for visit is that she had elevated heart rate to 109 (as per ) and some shortness of breath, which was new for her and hence sent to the ER for further evaluation. patient has h/o dementia, and is unable to provide any meaningful history, She denies any complaints though her at bedside, is also unable to provide any meaningful history, as he only notes that the SNF send her here for irregular / elevated heart rate and shortness of breath The patient was recently in [facility], 4 days ago, where they diagnosed her with dehydration and hypotension, Gave her some IVF and then I beleive cut back her diuretics. The patient was sent back to SNF. In the ER here the patient was noted to be drowsy, unable to provide much history, labs unremarkable except elevated bun 104 and creat of 2.0, which was same as her last admission. X ray chest shows mild chf, INR was 2.6 on coumadin. Patient was presented to the hospital for admission for chf exacerbation. The patient also had erythema on the left leg, and patient was given rocephin for possible cellutiltis for same. The patient has extensive comorbid history, is full code as per POST from [place] and on my eval was not breathing right, Blood gas was done which shows acute on chr resp failure with co2 retention, patient [facility] be [facility] and placed on bipap. one dose of lasix given. Godwin cath to be placed. Dec 21 patient seen and examined, no acute overnight events, patient tolerated BiPAP well, repeat ABG done last night showed improved pH at 7.36. This morning, patient's by the bedside and patient's son came to visit. The patient has no complaints. She is much more awake, she is hungry and has ordered breakfast. I reviewed her CODE STATUS with her again and it seems that the patient wished to be DNR. The overall poor prognosis of the patient was reviewed with the patient, her son and the . Plan to keep the patient off BiPAP for a couple of hours and see how she does repeat a blood gas around 10:00 in the morning. Continue steroids. 2. Resume home medications including her diuretic regimen. Old tramadol. Dec 22 patient seen examined, sitting up in bed, doing well, mental status was better this AM, answering questions, having breakfast, No complaints no acuter overnight events, BUN elevated to 115 today, nephrology note appreciated. dec 23 patient seen examined, mental status waxes and wanes, better this AM, tolerating po diet well has no complaints, but does have upper extremity tremors INR is 3.0 Patient bun keeps trending down, pt will likely not be able maintain her fluid status, and is high risk of readmission to the hospital, and has had multiple visits. Given rising bun, plan to start on HD to see if this helps, this is the last treatment of last resort. She remains high risk Pertinent ROS: Denies headache, dizziness Denies chest pain, palpitations Denies cough or shortness of breath Denies abdominal pain, nausea or vomiting. - Constitutional Vitals: Vital Signs Temp Pulse Resp BP Pulse Ox 97 F 87 20 103/68 94 12/23/17 15:14 12/23/17 14:57 12/23/17 15:14 12/23/17 15:14 12/23/17 15:14 Period Temp Pulse Resp BP Sys/Roca Pulse Ox Last 24 Hr 97 F-98.2 F 75-105 13-21 103-122/54-69 94-97 Intake and Output 12/23/17 12/23/17 12/23/17 05:59 13:59 21:59 Intake Total 350 / 350 600 / 600 Output Total 450 / 450 300 / 300 Balance -100 / -100 300 / 300 Intake & Output: Intake & Output 12/23/17 12/23/17 12/23/17 05:59 13:59 21:59 Intake Total 350 / 350 600 / 600 Output Total 450 / 450 300 / 300 Balance -100 / -100 300 / 300 Intake: Oral 350 / 350 600 / 600 Output: Urine Catheter Amount 300 / 300 Void Amount 450 / 450 Other: Meal toast Breakfast Percent of Meal Consumed 100% 90 Feeding Ability Independent Assist with Tray Set Up Exam: Constitutional; Afebrile, cooperative, alert, not in distress. Eyes- No icterus, , No periorbital swelling Ears- Ext ear normal, hearing normal to conversation. Neck- Midline trachea, supple Respiratory system: Air Entry equal on both sides, No crackles or wheezing, no rhonchi. CVS- Rate rhythm irregular, S1,S2 heard, no gallop, no rub. Abdomen- Soft nontender abdomen, no organomegaly, no tenderness, no guarding or rigidity, [employer]- AOOx2, moving all extremities, no gross focal deficit noted. joi tremors upper extremity Medical - PN: Obj Da - Labs CBC & Chem 7: 12/23/17 04:10 12/23/17 04:10 Labs: Abnormal Lab Results 12/23/17 12/23/17 12/23/17 04:10 04:10 04:10 RBC 3.25 L Hgb 9.6 L Hct 29.4 L MPV 7.3 L Gran % 92.5 H Lymph % (Auto) 3.7 L Harlan % (Auto) Gran # Lymph # (Auto) 0.3 L PT 31.9 H INR 3.0 H Chloride 91 L Carbon Dioxide Anion Gap BUN 126 H* Creatinine 2.5 H Glucose 335 H Uric Acid 14.5 H Phosphorus NT-Pro-B Natriuret Pep Albumin 3.0 L Globulin Albumin/Globulin Ratio 0.9 L Urine Occult Blood Urine RBC Amorphous Crystals 12/22/17 12/22/17 12/22/17 04:00 04:00 04:00 RBC 3.29 L Hgb 9.8 L Hct 29.6 L MPV Gran % 94.1 H Lymph % (Auto) 1.9 L Harlan % (Auto) Gran # 8.9 H Lymph # (Auto) 0.2 L PT 34.7 H INR 3.4 H Chloride 92 L Carbon Dioxide 32 H Anion Gap BUN 115 H* Creatinine 2.3 H Glucose 200 H Uric Acid 13.7 H Phosphorus NT-Pro-B Natriuret Pep Albumin 2.9 L Globulin Albumin/Globulin Ratio 0.9 L Urine Occult Blood Urine RBC Amorphous Crystals 12/21/17 12/21/17 12/21/17 04:00 04:00 04:00 RBC 3.38 L Hgb 10.1 L Hct 30.6 L MPV Gran % 94.8 H Lymph % (Auto) 2.2 L Harlan % (Auto) 0.6 L Gran # 9.5 H Lymph # (Auto) 0.2 L PT 28.9 H INR 2.7 H Chloride 94 L Carbon Dioxide Anion Gap 17.0 H BUN 105 H* Creatinine 2.0 H Glucose Uric Acid 13.2 H Phosphorus 4.6 H NT-Pro-B Natriuret Pep Albumin 3.0 L Globulin Albumin/Globulin Ratio 0.9 L Urine Occult Blood Urine RBC Amorphous Crystals 12/20/17 12/20/17 12/20/17 17:09 16:59 16:58 RBC Hgb Hct MPV Gran % 84.3 H Lymph % (Auto) 7.2 L Harlan % (Auto) Gran # Lymph # (Auto) 0.5 L PT INR Chloride 94 L Carbon Dioxide 32 H Anion Gap BUN 104 H* Creatinine 2.0 H Glucose 107 H Uric Acid Phosphorus NT-Pro-B Natriuret Pep 60250.0 H Albumin Globulin 3.8 H Albumin/Globulin Ratio 0.9 L Urine Occult Blood 0.03 A Urine RBC 2 H Amorphous Crystals Few A 12/20/17 16:58 RBC Hgb Hct MPV Gran % Lymph % (Auto) Harlan % (Auto) Gran # Lymph # (Auto) PT 28.0 H INR 2.6 H Chloride Carbon Dioxide Anion Gap BUN Creatinine Glucose Uric Acid Phosphorus NT-Pro-B Natriuret Pep Albumin Globulin Albumin/Globulin Ratio Urine Occult Blood Urine RBC Amorphous Crystals Meds: Medications Acetaminophen (Tylenol) 650 mg PO Q6HP PRN PRN Reason: PAIN/FEVER > 101 Albuterol/Ipratropium (Duoneb) 3 ml NEB Q4HRT [facility] Last Admin: 12/23/17 14:51 Dose: 3 ml Azithromycin (Zithromax) 250 mg PO DAILY [facility] Stop: 12/24/17 09:01 Last Admin: 12/23/17 10:55 Dose: 250 mg Calcitriol (Rocaltrol) 0.25 mcg PO DAILY [facility] Last Admin: 12/23/17 10:55 Dose: 0.25 mcg Donepezil HCl (Aricept) 10 mg PO HS [facility] Last Admin: 12/22/17 20:16 Dose: 10 mg Sodium Chloride (Sodium Chloride 0.9%) 1,000 mls @ 125 mls/hr IV .Q8H [facility] Last Admin: 12/23/17 10:56 Dose: 125 mls/hr Naloxone HCl (Narcan) 0.1 mg IV Q2MIN PRN PRN Reason: Opiate Reversal Omeprazole (Prilosec) 20 mg PO BIDAC [facility] Last Admin: 12/23/17 07:37 Dose: 20 mg Ondansetron HCl (Zofran) 4 mg IV Q4HP PRN PRN Reason: Nausea And Vomiting Pantoprazole Sodium (Protonix) 40 mg PO BIDAC [facility] Last Admin: 12/23/17 07:37 Dose: 40 mg [facility] Simvastatin (Zocor) 5 mg PO HS [facility] Last Admin: 12/22/17 20:16 Dose: 5 mg Medical - PN: A/P - Time Spent With Patient Total time spent is greater than 50% in coordination of care (as documented) at patient's floor/unit and/or counseling patient: - Narrative A/P Narrative: A/P Acute on chr hypoxic and hypercapnic respiratory failure: due to chf and copd exacerbation, treat underlying cause, bipap prn for now, repeat abg shows improved ph and pco2, she is baseline co2 retainer, Pt is DNR now. but ok with bipap. clinically stable, acute component is resolved. Acute copd exacerbation: oral steroids, zithromax and duonebs, pt doing well, no wheezine on exam today. CHF exacerbation: on oral diuretics as per nephrology at this time. very tenous fluid balance acute on chr renal failure: buN 125, family is willing for dialysis, planned catheter placement in AM DR Elizabeth has placed Dialysis orders. Acute cor pulmonale: get echo to evaluate cardiac function, diuresis for now, await echo report Acute GI Bleed: some drop in hb, but no obvious gi bleed noted, on ppi bid. monitor. AFib: rate controlled, Chr anticoagulation: INR elevated at 3.0, hold coumadin in light of tunneled cath placement, Vit K 7.5mg total today, check iNR tomorrow, if needed ffp before procedure vs holding procedure for 1 more day. Cellulitis: left leg, no e/o sepsis, IV vancomycin, procalctionin is 0.3. clinically improving. Dementia: Resumed home meds home meds for HTN/ HLD/ Restless legs DVT on coumadin DNR code status if remains stable can plan d/c back to SNF in AM Medical - PN: Qual - VTE Deep Vein Thrombosis/Pulmonary Embolism Present on Admission: Yes
[2017-12-23] MEDS ORDERED: DEXTROSE 50% 50 ML VIAL IV PRN (16:26)
[2017-12-23] MEDS ORDERED: DEXTROSE 31 GM ORAL.SUSP PO PRN (16:26)
[2017-12-23] MEDS: INSULIN LISPRO 1 UNIT/0.01 ML UNIT SQ SCH ×2 (17:55→22:34)
[2017-12-23] MEDS: SIMVASTATIN 10 MG TABLET PO SCH (22:33)
[2017-12-23] MEDS: DONEPEZIL 10 MG TABLET PO SCH (22:34)
[2017-12-24] MEDS: 0.9 % SODIUM CHLORIDE 1,000 ML IV SCH ×4 (01:53→17:29)
[2017-12-24] MEDS: IPRATROPIUM/ALBUTEROL 3 ML AMPUL.NEB NEB SCH ×6 (02:48→22:05)
[2017-12-24 06:12] LABS: Basophils # (Auto) 0 K/mcL (0.0-0.3); Basophils % (Auto) 0 % (0.0-2.0); Eosinophils # (Auto) 0.1 K/mcL (0.0-0.7); Eosinophils % (Auto) 2.1 % (0.0-7.0); Granulocytes % (Auto) 86.6 % (38.0-78.0); Lymphocytes # (Auto) 0.4 K/mcL (1.5-4.8); Lymphocytes % (Auto) 5.7 % (15.5-49.0); Mean Cell Volume 90.2 fL (80.0-100.0); Mean Corpuscular Hemoglobin 29.8 pg (26.0-34.0); Monocytes # (Auto) 0.4 K/mcL (0.1-0.9); Monocytes % (Auto) 5.6 % (1.0-12.0); Platelet Count 216 K/mcL (140-440); RBC 3.24 M/mcL (4.00-5.20); Red Cell Distribution Width 14.2 % (11.5-14.5)
[2017-12-24 07:04] LABS: ALT/SGPT 17 U/l (0-40); Albumin 2.9 gm/dL (3.2-5.2); Alkaline Phosphatase 62 U/L (39-117); Bilirubin,Direct < 0.2 mg/dL (0.0-0.3); Blood Urea Nitrogen 127 mg/dl (8-23); Gamma Glutamyl Transpeptidase 33 U/L (5-36); Uric Acid 13.8 mg/dL (2.5-8.0)
[2017-12-24] MEDS: predniSONE 20 MG TABLET PO SCH (07:31)
[2017-12-24] MEDS: PANTOPRAZOLE 40 MG TABLET PO SCH ×2 (07:32→17:28)
[2017-12-24] MEDS: OMEPRAZOLE 20 MG CAPSULE PO SCH ×2 (07:32→17:28)
[2017-12-24] MEDS: INSULIN LISPRO 1 UNIT/0.01 ML UNIT SQ SCH ×4 (07:33→20:50)
[2017-12-24] MEDS ORDERED: 0.9 % SODIUM CHLORIDE 250 ML IV SCH (09:15)
[2017-12-24] MEDS: AZITHROMYCIN 250 MG TABLET PO SCH (09:44)
[2017-12-24] MEDS: CALCITRIOL 0.25 MCG CAPSULE PO SCH (09:44)
[2017-12-24] MEDS ORDERED: FUROSEMIDE 40 MG/4 ML VIAL IV ONE (13:25)
[2017-12-24] MEDS ORDERED: WARFARIN 4 MG TABLET PO ONE (14:00)
[2017-12-24] MEDS ORDERED: WARFARIN 4 MG TABLET PO SCH (14:00)
--- NOTE | 2017-12-24 20:08 | Internal Med Progress Note ---
Medical - PN: Subj Patient information: Note initiated : 12/24/17 at 8:06 pm Service Date, if different from initiated Date: [] Patient: Tana Frederick a 77 y/o F admitted on 12/20/17 for Hypertension, SOB/ CHF, Respiratory Failure. Chief Complaint: f/u volume overload/CHF, renal failure Interval history: Ms. Frederick is a 77 year old Female with h/o severe diastolic CHF, COPD, severe cor pulmonale, CKD stage 4, [place] the [place] for [place]ness of breath, tachcyardia and not feeling well. The reason for visit is that she had elevated heart rate to 109 (as per ) and some shortness of breath, which was new for her and hence sent to the ER for further evaluation. patient has h/o dementia, and is unable to provide any meaningful history, She denies any complaints though her at bedside, is also unable to provide any meaningful history, as he only notes that the SNF send her here for irregular / elevated heart rate and shortness of breath The patient was recently in [facility], 4 days ago, where they diagnosed her with dehydration and hypotension, Gave her some IVF and then I beleive cut back her diuretics. The patient was sent back to SNF. In the ER here the patient was noted to be drowsy, unable to provide much history, labs unremarkable except elevated bun 104 and creat of 2.0, which was same as her last admission. X ray chest shows mild chf, INR was 2.6 on coumadin. Patient was presented to the hospital for admission for chf exacerbation. The patient also had erythema on the left leg, and patient was given rocephin for possible cellutiltis for same. The patient has extensive comorbid history, is full code as per POST from [place] and on my eval was not breathing right, Blood gas was done which shows acute on chr resp failure with co2 retention, patient will be admitted to [facility] status and placed on bipap. one dose of lasix given. Godwin cath to be placed. Dec 21 patient seen and examined, no acute overnight events, patient tolerated BiPAP well, repeat ABG done last night showed improved pH at 7.36. This morning, patient's by the bedside and patient's son came to visit. The patient has no complaints. She is much more awake, she is hungry and has ordered breakfast. I reviewed her CODE STATUS with her again and it seems that the patient wished to be DNR. The overall poor prognosis of the patient was reviewed with the patient, her son and the . Plan to keep the patient off BiPAP for a couple of hours and see how she does repeat a blood gas around 10:00 in the morning. Continue steroids. 2. Resume home medications including her diuretic regimen. Old tramadol. Dec 22 patient seen examined, sitting up in bed, doing well, mental status was better this AM, answering questions, having breakfast, No complaints no acuter overnight events, BUN elevated to 115 today, nephrology note appreciated. dec 23 patient seen examined, mental status waxes and wanes, better this AM, tolerating po diet well has no complaints, but does have upper extremity tremors INR is 3.0 Patient bun keeps trending down, pt will likely not be able maintain her fluid status, and is high risk of readmission to the hospital, and has had multiple visits. Given rising bun, plan to start on HD to see if this helps, this is the last treatment of last resort. She remains high risk Dec 24 INR is 1.8 today, received 3 units of FFP and had tunneled dialysis catheter placed. Tolerated the procedure well. She became short of breath during infusion of FFP, received a dose of furosemide. Plans to receive hemodialysis initiation this evening. Otherwise status remains quite tenuous with fluid balance. Dyspnea about the same. Discussed plans for the day with patient and her at bedside. Remains a high risk patient for decompensation. - Constitutional Vitals: Vital Signs Temp Pulse Resp BP Pulse Ox 98.2 F 60 18 138/86 100 12/24/17 17:23 12/24/17 19:59 12/24/17 16:14 12/24/17 19:59 12/24/17 16:14 Period Temp Pulse Resp BP Sys/Roca Pulse Ox Last 24 Hr 97.0 F-98.3 F 54-105 14-18 91-157/61-105 92-100 Intake and Output 12/24/17 12/24/17 12/24/17 05:59 13:59 21:59 Intake Total 1100 / 1100 1120 / 1120 250 / 250 Output Total 350 / 350 575 / 575 Balance 750 / 750 1120 / 1120 -325 / -325 Intake & Output: Intake & Output 02/13/18 02/13/18 02/13/18 05:59 13:59 21:59 Intake Total 1100 / 1100 1120 / 1120 250 / 250 Output Total 350 / 350 575 / 575 Balance 750 / 750 1120 / 1120 -325 / -325 Intake: IV 1000 / 1000 1000 / 1000 250 / 250 Sodium Chloride 0.9% 1,000 ml @ 1000 / 1000 1000 / 1000 125 mls/hr IV .Q8H [facility] Rx#: [id number] Sodium Chloride 0.9% 250 ml @ 250 / 250 20 mls/hr IV .[id number] [facility] Rx#: [id number] Oral 100 / 100 120 / 120 Output: Urine Catheter Amount 350 / 350 575 / 575 Other: Meal Breakfast Percent of Meal Consumed 50% Exam: General: Sitting up in bed in no acute distress Chest: Few basal crackles, otherwise clear Cardiovascular: Irregular, trace edema Abdomen: Soft, nontender Neuro: Alert, oriented to self, very poor memory and recall. Generally weak. Medical - PN: Obj Da - Labs CBC & Chem 7: 12/24/17 04:30 12/24/17 04:30 Labs: Abnormal Lab Results 12/24/17 12/24/17 12/24/17 14:30 04:30 04:30 RBC Hgb Hct MPV Gran % Lymph % (Auto) Gran # Lymph # (Auto) POC PT 15.3 H PT 20.6 H POC INR 1.3 H INR 1.8 H Chloride 95 L Carbon Dioxide BUN 127 H* Creatinine 2.3 H Glucose 123 H Uric Acid 13.8 H Albumin 2.9 L Albumin/Globulin Ratio 12/24/17 12/23/17 12/23/17 04:30 04:10 04:10 RBC 3.24 L Hgb 9.6 L Hct 29.3 L MPV 7.2 L Gran % 86.6 H Lymph % (Auto) 5.7 L Gran # Lymph # (Auto) 0.4 L POC PT PT 31.9 H POC INR INR 3.0 H Chloride 91 L Carbon Dioxide BUN 126 H* Creatinine 2.5 H Glucose 335 H Uric Acid 14.5 H Albumin 3.0 L Albumin/Globulin Ratio 0.9 L 12/23/17 12/22/17 12/22/17 04:10 04:00 04:00 RBC 3.25 L Hgb 9.6 L Hct 29.4 L MPV 7.3 L Gran % 92.5 H Lymph % (Auto) 3.7 L Gran # Lymph # (Auto) 0.3 L POC PT PT 34.7 H POC INR INR 3.4 H Chloride 92 L Carbon Dioxide 32 H BUN 115 H* Creatinine 2.3 H Glucose 200 H Uric Acid 13.7 H Albumin 2.9 L Albumin/Globulin Ratio 0.9 L 12/22/17 04:00 RBC 3.29 L Hgb 9.8 L Hct 29.6 L MPV Gran % 94.1 H Lymph % (Auto) 1.9 L Gran # 8.9 H Lymph # (Auto) 0.2 L POC PT PT POC INR INR Chloride Carbon Dioxide BUN Creatinine Glucose Uric Acid Albumin Albumin/Globulin Ratio Meds: Medications Acetaminophen (Tylenol) 650 mg PO Q6HP PRN PRN Reason: PAIN/FEVER > 101 Albuterol/Ipratropium (Duoneb) 3 ml NEB Q4HRT [facility] Last Admin: 12/24/17 19:31 Dose: Not Given Calcitriol (Rocaltrol) 0.25 mcg PO DAILY [facility] Last Admin: 12/24/17 09:44 Dose: 0.25 mcg Dextrose (Dextrose 50%) 0 ml IV UD PRN PRN Reason: Hypoglycemia Diagnostic Test (Pha) (Accu-Chek) 1 each FS [facility] Last Admin: 12/24/17 16:41 Dose: Not Given Donepezil HCl (Aricept) 10 mg PO HS [facility] Last Admin: 12/23/17 22:34 Dose: 10 mg Glucose (Insta-Glucose) 15 gm PO PRN PRN PRN Reason: Hypoglycemia Sodium Chloride (Sodium Chloride 0.9%) 1,000 mls @ 125 mls/hr IV .Q8H [facility] Last Admin: 12/24/17 17:29 Dose: Not Given Sodium Chloride (Sodium Chloride 0.9%) 250 mls @ 20 mls/hr IV .[id number] [facility] Stop: 12/24/17 21:44 Last Infusion: 12/24/17 17:30 Dose: Infused Insulin Human Lispro (Humalog) 0 unit SQ [facility] PRN Reason: Protocol Last Admin: 12/24/17 16:41 Dose: Not Given Naloxone HCl (Narcan) 0.1 mg IV Q2MIN PRN PRN Reason: Opiate Reversal Omeprazole (Prilosec) 20 mg PO BIDAC [facility] Last Admin: 12/24/17 17:28 Dose: Not Given Ondansetron HCl (Zofran) 4 mg IV Q4HP PRN PRN Reason: Nausea And Vomiting Pantoprazole Sodium (Protonix) 40 mg PO BIDAC [facility] Last Admin: 12/24/17 17:28 Dose: Not Given [facility]) [facility] Last Admin: 12/24/17 07:31 Dose: 40 mg Simvastatin (Zocor) 5 mg PO [facility] Last Admin: 12/23/17 22:33 Dose: 5 mg - Impressions Echocardiogram, 10/20/2018. The left ventricle is normal in size There's normal LV wall thickness. LV systolic function is low normal, EF estimated 50-55% Paradoxical septal motion noted consistent with RV volume overload. The right ventricle is moderately dilated, the left atrium is moderately dilated , the right atrium is severely dilated. Moderate pulmonary hypertension by Doppler, dilated IVC. Consistent with cor pulmonale Medical - PN: A/P - Time Spent With Patient Total time spent is greater than 50% in coordination of care (as documented) at patient's floor/unit and/or counseling patient: Greater than 35 minutes - Narrative A/P Narrative: Acute on chronic hypoxic and hypercapnic respiratory failure: due to CHF and COPD exacerbation; acute component resolved after treatment of COPD, voluem and use of BiPAP. Repeat ABG shows improved pH and pCO2, retains CO2 retainer. Clinically stable. Acute COPD exacerbation: oral steroids, Zithromax and Duoneb; stable, no wheezing on exam. CHF exacerbation: Very tenuous fluid balance, has failed attempts to balance volume with oral medications; HD to begin. Acute on chronic renal failure: BUN up to 127; family was willing for dialysis, now s/p catheter placement and to get first HD. Cor pulmonale: Pulmonary hypertension and reduced RV systolic function, will complicate HD and attempts at fluid balance. Will need gentle UF. Acute GI Bleed: some drop in Hb, but no obvious GI bleed noted, on PPI bid. monitor. AFib: rate controlled Chronic anticoagulation: INR elevated at 3.0, coumadin held and got 7.5 mg ov Vit K yesterday; IRN was 1.8 this AM, received FFP to have dialysis catheter placed. Can now resume warfarin. Cellulitis: left leg, no e/o sepsis, IV vancomycin, procalctionin is 0.3. clinically improving. Dementia: Resumed home meds home meds for HTN/ HLD/ Restless legs DVT prophy: on coumadin DNR code status Medical - PN: Qual - VTE Deep Vein Thrombosis/Pulmonary Embolism Present on Admission: Yes
--- NOTE | 2017-12-24 20:18 | Nephrology Progress Note ---
Subjective Patient information: Note initiated : 12/24/17 at 8:16 pm Service Date, if different from initiated Date: [] Patient: Tana Frederick 77 y/o F admitted on 12/20/17 for Hypertension, SOB/ CHF, Respiratory Failure. Chief Complaint: Events noted. She was short of breath after FFP. Objective - Vital Signs Vital signs: Vital Signs Temp Pulse Pulse Resp BP BP BP 12/24/17 20:05 98.3 F 81 157/74 12/24/17 19:59 60 138/86 12/24/17 19:44 80 134/76 12/24/17 19:29 87 157/74 12/24/17 19:14 93 H 141/82 12/24/17 18:59 82 136/86 12/24/17 18:44 85 131/80 12/24/17 18:30 84 135/105 12/24/17 18:15 54 L 153/78 12/24/17 18:00 97 H 138/77 12/24/17 17:46 94 H 91/75 12/24/17 17:23 98.2 F 59 L 147/78 12/24/17 16:14 97.8 F 94 H 18 114/77 12/24/17 13:25 97.8 F 98 H 18 123/73 12/24/17 13:13 98.2 F 103 H 18 118/71 12/24/17 12:00 98.3 F 95 H 16 149/79 12/24/17 11:47 98.3 F 105 H 18 120/87 12/24/17 11:21 95 H 18 12/24/17 07:46 12/24/17 07:39 97.0 F 16 112/69 12/24/17 07:20 92 H 18 12/24/17 03:26 97.4 F 100 H 16 110/63 12/23/17 23:24 97.6 F 97 H 16 111/61 12/23/17 22:50 101 H 14 Pulse Ox 12/24/17 20:05 12/24/17 19:59 12/24/17 19:44 12/24/17 19:29 12/24/17 19:14 12/24/17 18:59 12/24/17 18:44 12/24/17 18:30 12/24/17 18:15 12/24/17 18:00 12/24/17 17:46 12/24/17 17:23 12/24/17 16:14 100 12/24/17 13:25 92 12/24/17 13:13 92 12/24/17 12:00 95 12/24/17 11:47 94 12/24/17 11:21 12/24/17 07:46 92 12/24/17 07:39 92 12/24/17 07:20 93 12/24/17 03:26 96 12/23/17 23:24 94 12/23/17 22:50 Intake and Output 12/24/17 12/24/17 12/24/17 05:59 13:59 21:59 Intake Total 1100 / 1100 1120 / 1120 250 / 250 Output Total 350 / 350 575 / 575 Balance 750 / 750 1120 / 1120 -325 / -325 Intake: IV 1000 / 1000 1000 / 1000 250 / 250 Sodium Chloride 0.9% 1,000 ml @ 1000 / 1000 1000 / 1000 125 mls/hr IV .Q8H JEAN Rx#: [id number] Sodium Chloride 0.9% 250 ml @ 250 / 250 20 mls/hr IV .[id number] JEAN Rx#: [id number] Oral 100 / 100 120 / 120 Output: Urine Catheter Amount 350 / 350 575 / 575 Hemodialysis UF 0 / 0 Other: Meal Breakfast Percent of Meal Consumed 50% Intake & Output: Intake & Output 12/24/17 12/24/17 12/24/17 05:59 13:59 21:59 Intake Total 1100 / 1100 1120 / 1120 250 / 250 Output Total 350 / 350 575 / 575 Balance 750 / 750 1120 / 1120 -325 / -325 Intake: IV 1000 / 1000 1000 / 1000 250 / 250 Sodium Chloride 0.9% 1,000 ml @ 1000 / 1000 1000 / 1000 125 mls/hr IV .Q8H JEAN Rx#: [id number] Sodium Chloride 0.9% 250 ml @ 250 / 250 20 mls/hr IV .[id number] JEAN Rx#: [id number] Oral 100 / 100 120 / 120 Output: Urine Catheter Amount 350 / 350 575 / 575 Hemodialysis UF 0 / 0 Other: Meal Breakfast Percent of Meal Consumed 50% - General Appearance General appearance: well-developed EENT: ATNC Neck: no JVD Cardiology: diastolic murmur Gastrointestinal: normoactive bowel sounds Integumentary: no rash Musculoskeletal: no deformities - Lab 12/24/17 04:30 12/24/17 04:30 Most recent lab results Calcium 9.1 mg/dl (8.6-10.4) 12/24/17 04:30 Phosphorus 3.2 mg/dL (2.7-4.5) 12/24/17 04:30 Magnesium 1.8 mg/dL (1.6-2.5) 12/24/17 04:30 Assessment and Plan (1) Chronic kidney disease (CKD), stage III (moderate) Status: Acute Comment: The labs are slightly worse, CXR better as far as fluid status is concerned. She had a tunnel dialysis catheter placed and started on dialysis today.
[2017-12-24] MEDS ORDERED: METOLAZONE 2.5 MG TABLET PO SCH (20:30)
[2017-12-24] MEDS: DONEPEZIL 10 MG TABLET PO SCH (20:44)
[2017-12-24] MEDS: SIMVASTATIN 10 MG TABLET PO SCH (20:44)
[2017-12-24] MEDS: METOLAZONE 2.5 MG TABLET PO SCH (20:46)
[2017-12-24] MEDS: 0.9 % SODIUM CHLORIDE 10 ML SYRINGE IV SCH (21:37)
[2017-12-24] MEDS: FUROSEMIDE 100 MG/10 ML VIAL IV SCH (21:37)
[2017-12-25] MEDS: IPRATROPIUM/ALBUTEROL 3 ML AMPUL.NEB NEB SCH ×6 (02:22→23:42)
[2017-12-25] MEDS: METOLAZONE 2.5 MG TABLET PO SCH (05:18)
[2017-12-25] MEDS: FUROSEMIDE 100 MG/10 ML VIAL IV SCH ×2 (05:50→13:44)
[2017-12-25] MEDS: 0.9 % SODIUM CHLORIDE 10 ML SYRINGE IV SCH ×3 (05:50→22:15)
[2017-12-25 06:15] LABS: Basophils # (Auto) 0 K/mcL (0.0-0.3); Basophils % (Auto) 0 % (0.0-2.0); Eosinophils # (Auto) 0.2 K/mcL (0.0-0.7); Eosinophils % (Auto) 2.8 % (0.0-7.0); Lymphocytes # (Auto) 0.6 K/mcL (1.5-4.8); Lymphocytes % (Auto) 8.7 % (15.5-49.0); Mean Cell Volume 89.8 fL (80.0-100.0); Mean Corpuscular HGB Conc 33.4 g/dL (31.0-36.0); Monocytes # (Auto) 0.6 K/mcL (0.1-0.9); Monocytes % (Auto) 8.5 % (1.0-12.0); Platelet Count 208 K/mcL (140-440); RBC 3.33 M/mcL (4.00-5.20); Red Cell Distribution Width 14.3 % (11.5-14.5)
[2017-12-25 06:47] LABS: ALT/SGPT 59 U/l (0-40); Albumin 3.2 gm/dL (3.2-5.2); Alkaline Phosphatase 94 U/L (39-117); Bilirubin,Direct < 0.2 mg/dL (0.0-0.3); Blood Urea Nitrogen 61 mg/dl (8-23); Gamma Glutamyl Transpeptidase 132 U/L (5-36); Uric Acid 7.7 mg/dL (2.5-8.0)
[2017-12-25] MEDS: INSULIN LISPRO 1 UNIT/0.01 ML UNIT SQ SCH ×4 (07:23→21:01)
[2017-12-25] MEDS: PANTOPRAZOLE 40 MG TABLET PO SCH ×2 (08:03→16:41)
[2017-12-25] MEDS: CALCITRIOL 0.25 MCG CAPSULE PO SCH (09:11)
[2017-12-25] MEDS: predniSONE 20 MG TABLET PO SCH ×2 (09:11→21:37)
[2017-12-25] MEDS: OMEPRAZOLE 20 MG CAPSULE PO SCH (12:31)
--- NOTE | 2017-12-25 12:53 | Nephrology Progress Note ---
Subjective Patient information: Note initiated : 12/25/17 at 12:49 pm Service Date, if different from initiated Date: [] Patient: Tana Frederick 77 y/o F admitted on 12/20/17 for Hypertension, SOB/ CHF, Respiratory Failure. Chief Complaint: Confused but more alert. Objective - Vital Signs Vital signs: Vital Signs Temp Pulse Pulse Resp BP BP BP 12/25/17 12:20 94 H 132/64 12/25/17 12:00 97.4 F 106 H 16 135/89 12/25/17 11:50 96 H 155/86 12/25/17 11:19 96 H 134/74 12/25/17 10:50 93 H 136/60 12/25/17 10:20 93 H 138/63 12/25/17 09:56 98.0 F 80 144/74 12/25/17 07:41 100 H 20 12/25/17 07:31 97.2 F 104 H 16 131/88 12/25/17 07:25 100 H 20 12/25/17 04:00 97.3 F 16 151/85 12/24/17 23:47 98.0 F 95 H 16 122/74 12/24/17 22:09 94 H 14 12/24/17 22:06 12/24/17 20:25 98.4 F 97 H 16 124/78 12/24/17 20:05 98.3 F 81 157/74 12/24/17 19:59 60 138/86 12/24/17 19:44 80 134/76 12/24/17 19:29 87 157/74 12/24/17 19:14 93 H 141/82 12/24/17 18:59 82 136/86 12/24/17 18:44 85 131/80 12/24/17 18:30 84 135/105 12/24/17 18:15 54 L 153/78 12/24/17 18:00 97 H 138/77 12/24/17 17:46 94 H 91/75 12/24/17 17:23 98.2 F 59 L 147/78 12/24/17 16:14 97.8 F 94 H 18 114/77 12/24/17 13:25 97.8 F 98 H 18 123/73 12/24/17 13:13 98.2 F 103 H 18 118/71 Pulse Ox 12/25/17 12:20 12/25/17 12:00 97 12/25/17 11:50 12/25/17 11:19 12/25/17 10:50 12/25/17 10:20 12/25/17 09:56 12/25/17 07:41 99 12/25/17 07:31 98 12/25/17 07:25 12/25/17 04:00 96 12/24/17 23:47 95 12/24/17 22:09 12/24/17 22:06 96 12/24/17 20:25 97 12/24/17 20:05 12/24/17 19:59 12/24/17 19:44 12/24/17 19:29 12/24/17 19:14 12/24/17 18:59 12/24/17 18:44 12/24/17 18:30 12/24/17 18:15 12/24/17 18:00 12/24/17 17:46 12/24/17 17:23 12/24/17 16:14 100 12/24/17 13:25 92 12/24/17 13:13 92 Intake and Output 12/24/17 12/25/17 12/25/17 21:59 05:59 13:59 Intake Total 250 / 250 350 / 350 Output Total 1075 / 1075 500 / 500 Balance -825 / -825 -150 / -150 Intake: IV 250 / 250 Sodium Chloride 0.9% 250 ml @ 250 / 250 20 mls/hr IV .[id number] JEAN Rx#: [id number] Oral 350 / 350 Output: Urine Catheter Amount 1075 / 1075 500 / 500 Hemodialysis UF 0 / 0 Other: Weight 200 lb 8 oz Intake & Output: Intake & Output 12/24/17 12/25/17 12/25/17 21:59 05:59 13:59 Intake Total 250 / 250 350 / 350 Output Total 1075 / 1075 500 / 500 Balance -825 / -825 -150 / -150 Weight 200 lb 8 oz Intake: IV 250 / 250 Sodium Chloride 0.9% 250 ml @ 250 / 250 20 mls/hr IV .[id number] JEAN Rx#: [id number] Oral 350 / 350 Output: Urine Catheter Amount 1075 / 1075 500 / 500 Hemodialysis UF 0 / 0 - General Appearance General appearance: well-developed EENT: ATNC Neck: no JVD Respiratory: no kyphosis Cardiology: no murmurs Gastrointestinal: normoactive bowel sounds Integumentary: no rash Neurologic: no focal deficit - Lab 12/25/17 04:45 12/25/17 04:45 Most recent lab results Calcium 8.9 mg/dl (8.6-10.4) 12/25/17 04:45 Phosphorus 2.1 mg/dL (2.7-4.5) L 12/25/17 04:45 Magnesium 1.7 mg/dL (1.6-2.5) 12/25/17 04:45 Assessment and Plan (1) Chronic kidney disease (CKD), stage III (moderate) Status: Acute Comment: The labs are lot better post dialysis. The fluid status is better. She is getting another dialysis treatment today and will remove about 1500ml of fluids. Can continue po lasix 80mg in and 40mg po pm and spironolactone 50mg po bid as outpatient. Will set up for dialysis as outpatient at [facility] starting Saturday.
[2017-12-25] MEDS ORDERED: WARFARIN 2 MG TABLET PO SCH (14:00)
[2017-12-25] MEDS ORDERED: FUROSEMIDE 40 MG TABLET PO SCH (15:00)
[2017-12-25] MEDS: SPIRONOLACTONE 25 MG TABLET PO SCH (16:41)
--- NOTE | 2017-12-25 18:08 | Internal Med Progress Note ---
Medical - PN: Subj Patient information: Note initiated : 12/25/17 at 6:08 pm Service Date, if different from initiated Date: [] Patient: Tana Frederick a 77 y/o F admitted on 12/20/17 for Hypertension, SOB/ CHF, Respiratory Failure. Chief Complaint: f/u CHF, renal failure Interval history: Ms. Frederick is a 77 year old Female with h/o severe diastolic CHF, COPD, severe cor pulmonale, CKD stage 4, [place] for shortness of breath, tachcyardia and not feeling well. The reason for visit is that she had elevated heart rate to 109 (as per ) and some shortness of breath, which was new for her and hence sent to the ER for further evaluation. patient has h/o dementia, and is unable to provide any meaningful history, She denies any complaints though her at bedside, is also unable to provide any meaningful history, as he only notes that the SNF send her here for irregular / elevated heart rate and shortness of breath The patient was recently in [facility], 4 days ago, where they diagnosed her with dehydration and hypotension, Gave her some IVF and then I beleive cut back her diuretics. The patient was sent back to SNF. In the ER here the patient was noted to be drowsy, unable to provide much history, labs unremarkable except elevated bun 104 and creat of 2.0, which was same as her last admission. X ray chest shows mild chf, INR was 2.6 on coumadin. Patient was presented to the hospital for admission for chf exacerbation. The patient also had erythema on the left leg, and patient was given rocephin for possible cellutiltis for same. The patient has extensive comorbid history, is full code as per POST from [place] and on my eval was not breathing right, Blood gas was done which shows acute on chr resp failure with co2 retention, [facility] and placed on bipap. one dose of lasix given. Godwin cath to be placed. Dec 21 patient seen and examined, no acute overnight events, patient tolerated BiPAP well, repeat ABG done last night showed improved pH at 7.36. This morning, patient's by the bedside and patient's son came to visit. The patient has no complaints. She is much more awake, she is hungry and has ordered breakfast. I reviewed her CODE STATUS with her again and it seems that the patient wished to be DNR. The overall poor prognosis of the patient was reviewed with the patient, her son and the . Plan to keep the patient off BiPAP for a couple of hours and see how she does repeat a blood gas around 10:00 in the morning. Continue steroids. 2. Resume home medications including her diuretic regimen. Old tramadol. Dec 22 patient seen examined, sitting up in bed, doing well, mental status was better this AM, answering questions, having breakfast, No complaints no acuter overnight events, BUN elevated to 115 today, nephrology note appreciated. dec 23 patient seen examined, mental status waxes and wanes, better this AM, tolerating po diet well has no complaints, but does have upper extremity tremors INR is 3.0 Patient bun keeps trending down, pt will likely not be able maintain her fluid status, and is high risk of readmission to the hospital, and has had multiple visits. Given rising bun, plan to start on HD to see if this helps, this is the last treatment of last resort. She remains high risk Dec 24 INR is 1.8 today, received 3 units of FFP and had tunneled dialysis catheter placed. Tolerated the procedure well. She became short of breath during infusion of FFP, received a dose of furosemide. Plans to receive hemodialysis initiation this evening. Otherwise status remains quite tenuous with fluid balance. Dyspnea about the same. Discussed plans for the day with patient and her at bedside. Remains a high risk patient for decompensation. December 25 Feeling clearer today. Tolerated dialysis well. Still confused at times, remembers me from seen her yesterday prior to going for her dialysis catheter. More interactive and alert now that she's had two rounds of dialysis by this late afternoon. - Constitutional Vitals: Vital Signs Temp Pulse Resp BP Pulse Ox 98.8 F 93 H 20 117/62 96 12/25/17 16:00 12/25/17 16:00 12/25/17 16:00 12/25/17 16:00 12/25/17 16:00 Period Temp Pulse Resp BP Sys/Roca Pulse Ox Last 24 Hr 97.2 F-98.8 F 52-106 14-20 117-157/60-105 95-99 Intake and Output 12/25/17 12/25/17 12/25/17 05:59 13:59 21:59 Intake Total 350 / 350 120 / 120 200 / 200 Output Total 500 / 500 1500 / 1500 675 / 675 Balance -150 / -150 -1380 / -1380 -475 / -475 Intake & Output: Intake & Output 12/25/17 12/25/17 12/25/17 05:59 13:59 21:59 Intake Total 350 / 350 120 / 120 200 / 200 Output Total 500 / 500 1500 / 1500 675 / 675 Balance -150 / -150 -1380 / -1380 -475 / -475 Intake: Oral 350 / 350 120 / 120 200 / 200 Output: Urine Catheter Amount 500 / 500 675 / 675 Hemodialysis UF 1500 / 1500 Other: Meal Lunch Percent of Meal Consumed 25% Exam: General: In bed in no acute distress, talkative Chest: Clear, no rales Cardiovascular: Regular, murmur present, no lower extremity edema Abdomen: Soft, nontender Neuro: Generally weak, oriented to herself,in the hospital, remembers me from yesterday.a Medical - PN: Obj Da - Labs CBC & Chem 7: 12/25/17 04:45 12/25/17 04:45 Labs: Abnormal Lab Results 12/25/17 12/25/17 12/25/17 04:45 04:45 04:45 RBC 3.33 L Hgb 10.0 L Hct 29.9 L MPV 6.8 L Gran % 80.0 H Lymph % (Auto) 8.7 L Lymph # (Auto) 0.6 L POC PT PT 17.1 H POC INR INR 1.4 H Chloride Carbon Dioxide 34 H BUN 61 H Creatinine 1.3 H Glucose 114 H Uric Acid Phosphorus 2.1 L GGT 132 H AST 64 H ALT 59 H Albumin Albumin/Globulin Ratio 12/24/17 12/24/17 12/24/17 14:30 04:30 04:30 RBC Hgb Hct MPV Gran % Lymph % (Auto) Lymph # (Auto) POC PT 15.3 H PT 20.6 H POC INR 1.3 H INR 1.8 H Chloride 95 L Carbon Dioxide BUN 127 H* Creatinine 2.3 H Glucose 123 H Uric Acid 13.8 H Phosphorus GGT AST ALT Albumin 2.9 L Albumin/Globulin Ratio 02/13/18 02/12/18 02/12/18 04:30 04:10 04:10 RBC 3.24 L Hgb 9.6 L Hct 29.3 L MPV 7.2 L Gran % 86.6 H Lymph % (Auto) 5.7 L Lymph # (Auto) 0.4 L POC PT PT 31.9 H POC INR INR 3.0 H Chloride 91 L Carbon Dioxide BUN 126 H* Creatinine 2.5 H Glucose 335 H Uric Acid 14.5 H Phosphorus GGT AST ALT Albumin 3.0 L Albumin/Globulin Ratio 0.9 L 12/23/17 04:10 RBC 3.25 L Hgb 9.6 L Hct 29.4 L MPV 7.3 L Gran % 92.5 H Lymph % (Auto) 3.7 L Lymph # (Auto) 0.3 L POC PT PT POC INR INR Chloride Carbon Dioxide BUN Creatinine Glucose Uric Acid Phosphorus GGT AST ALT Albumin Albumin/Globulin Ratio Meds: Medications Acetaminophen (Tylenol) 650 mg PO Q6HP PRN PRN Reason: PAIN/FEVER > 101 Albuterol/Ipratropium (Duoneb) 3 ml NEB Q4HRT [facility] Last Admin: 12/25/17 15:58 Dose: 3 ml Calcitriol (Rocaltrol) 0.25 mcg PO DAILY [facility] Last Admin: 12/25/17 09:11 Dose: 0.25 mcg Dextrose (Dextrose 50%) 0 ml IV UD PRN PRN Reason: Hypoglycemia Diagnostic Test (Pha) (Accu-Chek) 1 each FS [facility] Last Admin: 12/25/17 16:39 Dose: 1 each Donepezil HCl (Aricept) 10 mg PO HS [facility] Last Admin: 12/24/17 20:44 Dose: 10 mg Furosemide (Lasix) 80 mg PO DAILY [facility] Furosemide (Lasix) 40 mg PO DAILY@1500 [facility] Last Admin: 12/25/17 14:33 Dose: Not Given Glucose (Insta-Glucose) 15 gm PO PRN PRN PRN Reason: Hypoglycemia Insulin Human Lispro (Humalog) 0 unit SQ [facility] PRN Reason: Protocol Last Admin: 12/25/17 17:21 Dose: 2 unit Metolazone (Zaroxolyn) 5 mg PO BID@0530,2130 [facility] Last Admin: 12/25/17 05:18 Dose: 5 mg Naloxone HCl (Narcan) 0.1 mg IV Q2MIN PRN PRN Reason: Opiate Reversal Ondansetron HCl (Zofran) 4 mg IV Q4HP PRN PRN Reason: Nausea And Vomiting Pantoprazole Sodium (Protonix) 40 mg PO BIDAC [facility] Last Admin: 12/25/17 16:41 Dose: 40 mg Prednisone (Prednisone) 40 mg PO QAMCC [facility] Last Admin: 12/25/17 09:11 Dose: 40 mg Simvastatin (Zocor) 5 mg PO HS [facility] Last Admin: 12/24/17 20:44 Dose: 5 mg Sodium Chloride (Saline Flush) 10 ml IV Q8 [facility] Last Admin: 12/25/17 13:44 Dose: 10 ml Spironolactone (Aldactone) 50 mg PO BIDD [facility] Last Admin: 12/25/17 16:41 Dose: 50 mg Warfarin Sodium (Coumadin Per Pharmacy) 1 order PO DAILY@1400 [facility] Last Admin: 12/25/17 13:46 Dose: Not Given Warfarin Sodium (Coumadin) 4 mg PO TuFr@1400 [facility] Last Admin: 12/24/17 21:45 Dose: 4 mg Warfarin Sodium (Coumadin) 2 mg PO SuMoWeThSa@1400 [facility] Last Admin: 12/25/17 13:44 Dose: 2 mg Medical - PN: A/P - Narrative A/P Narrative: Acute on chronic hypoxic and hypercapnic respiratory failure: due to CHF and COPD exacerbation; acute component resolved after treatment of COPD, volume and use of BiPAP. Repeat ABG shows improved pH and pCO2, retains CO2 retainer. Clinically stable. Acute COPD exacerbation: oral steroids, Zithromax and Duoneb; stable, no wheezing on exam. CHF exacerbation: Tenuous fluid balance, but onow on HD with better chance of managing volume. Discussed w/ Dr. Elizabeth, will adjust outpatient diuretics to Lasix 80/40 mg BID and spironolactone 50 mg BID. Acute on chronic renal failure: Uremia significantly improved after initiation of HD. More alert, feels better. Plan for outpatient HD. Cor pulmonale: Pulmonary hypertension and reduced RV systolic function, will complicate HD and attempts at fluid balance. Will need gentle UF. Acute GI Bleed: some drop in Hb, but no obvious GI bleed noted, on PPI bid. monitor. AFib: rate controlled Chronic anticoagulation: INR elevated at 3.0, coumadin held and got 7.5 mg ov Vit K yesterday; IRN was 1.8 this AM, received FFP to have dialysis catheter placed. Warfarin resumed. Cellulitis: left leg, no e/o sepsis, IV vancomycin, procalctionin is 0.3. clinically improving. Dementia: Resumed home meds home meds for HTN/ HLD/ Restless legs DVT prophy: on coumadin DNR code status Medical - PN: Qual - VTE Deep Vein Thrombosis/Pulmonary Embolism Present on Admission: Yes
[2017-12-25] MEDS: SIMVASTATIN 10 MG TABLET PO SCH (20:58)
[2017-12-25] MEDS: DONEPEZIL 10 MG TABLET PO SCH (20:58)
[2017-12-26] MEDS: IPRATROPIUM/ALBUTEROL 3 ML AMPUL.NEB NEB SCH ×2 (04:02→06:55)
[2017-12-26] MEDS: 0.9 % SODIUM CHLORIDE 10 ML SYRINGE IV SCH (05:49)
[2017-12-26 06:56] LABS: Basophils # (Auto) 0 K/mcL (0.0-0.3); Basophils % (Auto) 0.1 % (0.0-2.0); Eosinophils # (Auto) 0.1 K/mcL (0.0-0.7); Eosinophils % (Auto) 1.7 % (0.0-7.0); Granulocytes % (Auto) 77.7 % (38.0-78.0); Lymphocytes # (Auto) 0.8 K/mcL (1.5-4.8); Lymphocytes % (Auto) 13.3 % (15.5-49.0); Mean Cell Volume 90.9 fL (80.0-100.0); Mean Corpuscular HGB Conc 32.9 g/dL (31.0-36.0); Mean Corpuscular Hemoglobin 29.9 pg (26.0-34.0); Monocytes # (Auto) 0.4 K/mcL (0.1-0.9); Monocytes % (Auto) 7.2 % (1.0-12.0); Platelet Count 205 K/mcL (140-440); RBC 3.42 M/mcL (4.00-5.20); Red Cell Distribution Width 14.2 % (11.5-14.5)
[2017-12-26 07:26] LABS: ALT/SGPT 56 U/l (0-40); Albumin 3.3 gm/dL (3.2-5.2); Albumin/Globulin Ratio 1.1 (1.0-2.3); Alkaline Phosphatase 97 U/L (39-117); Bilirubin,Direct < 0.2 mg/dL (0.0-0.3); Blood Urea Nitrogen 28 mg/dl (8-23); Gamma Glutamyl Transpeptidase 140 U/L (5-36)
[2017-12-26] MEDS: INSULIN LISPRO 1 UNIT/0.01 ML UNIT SQ SCH (07:28)
[2017-12-26] MEDS: PANTOPRAZOLE 40 MG TABLET PO SCH (07:28)
[2017-12-26] MEDS: SPIRONOLACTONE 25 MG TABLET PO SCH (08:20)
[2017-12-26] MEDS: predniSONE 20 MG TABLET PO SCH (08:20)
[2017-12-26] MEDS: CALCITRIOL 0.25 MCG CAPSULE PO SCH (08:47)
[2017-12-26] MEDS ORDERED: FUROSEMIDE 80 MG TABLET PO SCH (09:00)
--- NOTE | 2017-12-26 09:49 | Discharge Summary ---
Medical - DS: Prov Patient information: Note initiated : 12/26/17 at 9:43 am Service Date, if different from initiated Date: [] Patient: Tana Frederick 77 y/o F admitted on 12/20/17 for Hypertension, SOB/ CHF, Respiratory Failure. Date of admission: 12/20/17 19:41 Discharge date: 12/26/17 Primary care physician: Nina Mello Admitting clinician: Amie Paz Consults: 12/20/17 18:18 Consult to Physician [CONS] Stat Comment: Consulting Provider: Amie Paz Reason For Exam: Physician to Consult 12/20/17 20:39 Consult to Physician [CONS] Routine Comment: Consulting Provider: Stevo Elizabeth Reason For Exam: Physician to Consult 12/22/17 10:40 Consult to Physician [CONS] Routine Comment: referral Consulting Provider: [facility] Reason For Exam: Physician to Consult Discharging clinician: Charlotte Serrano Medical - DS: Meds - Discharge Medications Prescriptions: predniSONE [Prednisone] 20 mg PO QAC #5 tablet traMADol [Ultram] 50 mg PO Q6 PRN #30 tab PRN Reason: Pain Active and Home Medications: Home Medications Simvastatin [Zocor] 5 mg PO HS 05/11/15 [History Confirmed 12/20/17 Last Taken 12/20/17] Donepezil [Aricept] 10 mg PO HS 09/09/17 [History Confirmed 12/20/17 Last Taken 10/09/17] Furosemide [Lasix] 80 mg PO BID 10/09/17 [History Confirmed 12/20/17 Last Taken 10/09/17] Spironolactone [Aldactone] 50 mg PO BID 10/09/17 [History Confirmed 12/20/17 Last Taken 12/20/17] Calcitriol [Rocaltrol] 0.25 mcg PO DAILY 12/20/17 [History Confirmed 12/20/17 Last Taken 12/20/17] Metolazone [Zaroxolyn] 5 mg PO DAILY 12/20/17 [History Confirmed 12/20/17 Last Taken 12/20/17] Pantoprazole Sodium [Protonix] 40 mg PO BID 12/20/17 [History Confirmed Last Taken 12/20/17] Pramipexole [Mirapex] 3 mg PO HS 12/20/17 [History Confirmed 12/21/17 Last Taken Unknown] Warfarin [Coumadin] 2 mg PO DAILY 12/20/17 [History Confirmed 12/20/17 Last Taken Unknown] Warfarin [Coumadin] 4 mg PO DAILY 12/20/17 [History Confirmed 12/20/17 Last Taken Unknown] rOPINIRole [Requip] 0.25 mg PO HS 12/20/17 [History Confirmed 12/20/17 Last Taken Unknown] traMADol [Ultram] 50 mg PO Q6 PRN 12/20/17 [History Confirmed 12/20/17 Last Taken Unknown] Medical - DS: Hosp Hospital course: In Summary: Patient presented as noted just below with dyspnea, tachycardia. She had acute on chronic hypercapnic and hypoxic respiratory failure, volume overload, COPD exacerbation, atrial fibrillation with rapid ventricular response. She is treated with BiPAP with resolution of her acute phase of respiratory failure. She underwent diuresis, however remained significantly uremic with BUN rising to 127. After discussion with family, tunneled dialysis catheter was placed, she underwent initiation of dialysis in the hospital with treatment of her uremia. She also had diuretics intravenously with correction of her volume status. Echocardiogram indicated significant right heart failure with cor pulmonale, heart fluid status remained a bit tenuous throughout, however stable over the last few hospital days. She received steroids and breathing treatments as well as course of azithromycin for COPD with resolution of exacerbation. The patient now being discharged to skilled facility for further physical and occupational therapy. She will continue dialysis as an outpatient per Dr. Elizabeth. Dec 20 Ms. Frederick is a 77 year old Female with h/o severe diastolic CHF, COPD, severe cor pulmonale, CKD stage 4, presents to the ER from [place] for shortness of breath, tachycardia and not feeling well. The reason for visit is that she had elevated heart rate to 109 (as per ) and some shortness of breath, which was new for her and hence sent to the ER for further evaluation. patient has h/o dementia, and is unable to provide any meaningful history, She denies any complaints though her at bedside, is also unable to provide any meaningful history, as he only notes that the SNF send her here for irregular / elevated heart rate and shortness of breath The patient was recently in [facility], 4 days ago, where they diagnosed her with dehydration and hypotension, Gave her some IVF and then I believe cut back her diuretics. The patient was sent back to SNF. In the ER here the patient was noted to be drowsy, unable to provide much history, labs unremarkable except elevated bun 104 and creat of 2.0, which was same as her last admission. X ray chest shows mild CHF, INR was 2.6 on Coumadin. Patient was presented to the hospital for admission for CHF exacerbation. The patient also had erythema on the left leg, and patient was given Rocephin for possible cellulitis for same. The patient has extensive comorbid history, is full code as per POST from [place] and on my evaluation was not breathing right, Blood gas was done which shows acute on chronic respiratory failure with co2 retention, patient will be admitted to [facility] status and placed on BiPAP. one dose of Lasix given. Godwin cath to be placed. Feb 10 patient seen and examined, no acute overnight events, patient tolerated BiPAP well, repeat ABG done last night showed improved pH at 7.36. This morning, patient's by the bedside and patient's son came to visit. The patient has no complaints. She is much more awake, she is hungry and has ordered breakfast. I reviewed her CODE STATUS with her again and it seems that the patient wished to be DNR. The overall poor prognosis of the patient was reviewed with the patient, her son and the . Plan to keep the patient off BiPAP for a couple of hours and see how she does repeat a blood gas around 10:00 in the morning. Continue steroids. 2. Resume home medications including her diuretic regimen. Old tramadol. Dec 11 patient seen examined, sitting up in bed, doing well, mental status was better this AM, answering questions, having breakfast, No complaints no acuter overnight events, BUN elevated to 115 today, nephrology note appreciated. Feb 12 patient seen examined, mental status waxes and wanes, better this AM, tolerating po diet well has no complaints, but does have upper extremity tremors INR is 3.0 Patient bun keeps trending up, pt will likely not be able maintain her fluid status, and is high risk of readmission to the hospital, and has had multiple visits. Given rising bun, plan to start on HD to see if this helps, this is the last treatment of last resort. She remains high risk Feb 13 INR is 1.8 today, received 3 units of FFP and had tunneled dialysis catheter placed. Tolerated the procedure well. She became short of breath during infusion of FFP, received a dose of furosemide. Plans to receive hemodialysis initiation this evening. Otherwise status remains quite tenuous with fluid balance. Dyspnea about the same. Discussed plans for the day with patient and her at bedside. Remains a high risk patient for decompensation. Dec 25 Feeling clearer today. Tolerated dialysis well. Still confused at times, remembers me from seen her yesterday prior to going for her dialysis catheter. More interactive and alert now that she's had two rounds of dialysis by this late afternoon. Dec 26 Remains stable, looking forward to being able to discharge. Dyspnea significantly improved, more awake and alert following initiation of dialysis for uremia. Discharge diagnosis: Acute on chronic hypoxic and hypercarbic respiratory failure Secondary discharge diagnosis: End-stage renal disease Initiation of dialysis Cor pulmonale Congestive heart failure, acute on chronic diastolic Lower extremity cellulitis, resolved Atrial fibrillation - Time Spent with Patient Total time spent providing and/or coordinating discharge services: Greater than 30 minutes Medical - DS: Exam - Constitutional Vitals: Vital Signs Temp Pulse Pulse Resp BP BP BP 12/26/17 08:00 98.3 F 20 120/74 12/26/17 07:29 100 H 20 12/26/17 07:27 100 H 20 12/26/17 04:00 97.3 F 98 H 22 131/68 12/26/17 00:00 97.8 F 91 H 22 133/82 12/25/17 20:00 98.6 F 90 22 132/80 12/25/17 19:31 90 20 12/25/17 16:00 98.8 F 93 H 20 117/62 12/25/17 15:59 90 18 12/25/17 13:12 97.8 F 91 H 131/60 12/25/17 12:51 52 L 129/73 12/25/17 12:20 94 H 132/64 12/25/17 12:00 97.4 F 106 H 16 135/89 12/25/17 11:50 96 H 155/86 12/25/17 11:19 96 H 134/74 12/25/17 10:50 93 H 136/60 12/25/17 10:20 93 H 138/63 12/25/17 09:56 98.0 F 80 144/74 Pulse Ox 12/26/17 08:00 99 12/26/17 07:29 100 12/26/17 07:27 12/26/17 04:00 96 12/26/17 00:00 98 12/25/17 20:00 95 12/25/17 19:31 96 12/25/17 16:00 96 12/25/17 15:59 12/25/17 13:12 12/25/17 12:51 12/25/17 12:20 12/25/17 12:00 97 12/25/17 11:50 12/25/17 11:19 12/25/17 10:50 12/25/17 10:20 12/25/17 09:56 Intake and Output 12/25/17 12/26/17 12/26/17 21:59 05:59 13:59 Intake Total 200 / 200 100 / 100 Output Total 675 / 675 350 / 350 Balance -475 / -475 -250 / -250 Intake: Oral 200 / 200 100 / 100 Output: Urine Catheter Amount 675 / 675 350 / 350 Other: Weight 194 lb Additional comments: General: In no acute distress Chest: Clear, unlabored Cardio vascular: Irregular irregular. Abdomen: Soft, nontender Neuro: Alert, oriented to self,hospital, much more talkative and interactive than at admission. Medical - DS: Data Labs on day of discharge: Labs from last 24 hours 12/26/17 12/26/17 12/26/17 04:40 04:40 04:40 WBC 5.8 RBC 3.42 L Hgb 10.3 L Hct 31.1 L MCV 90.9 MCH 29.9 MCHC 32.9 RDW 14.2 Plt Count 205 MPV 6.9 L Gran % 77.7 Lymph % (Auto) 13.3 L [place] % (Auto) 7.2 Eos % (Auto) 1.7 Baso % (Auto) 0.1 Gran # 4.5 Lymph # (Auto) 0.8 L [place] # (Auto) 0.4 Eos # (Auto) 0.1 Baso # (Auto) 0 PT 19.4 H INR 1.6 H Sodium 140 Potassium 3.5 Chloride 100 Carbon Dioxide 31 H Anion Gap 9.0 BUN 28 H Creatinine 1.2 H GFR Calculation 43 Glucose 92 Uric Acid 4.0 Calcium 8.8 Phosphorus 2.3 L Magnesium 1.7 Total Bilirubin 0.3 Direct Bilirubin < 0.2 GGT 140 H AST 36 ALT 56 H Alkaline Phosphatase 97 Lactate Dehydrogenase 206 Total Protein 6.2 Albumin 3.3 Globulin 2.9 Albumin/Globulin Ratio 1.1 Triglycerides 74 - Impressions Echocardiogram, 10/20/2018. The left ventricle is normal in size There's normal LV wall thickness. LV systolic function is low normal, EF estimated 50-55% Paradoxical septal motion noted consistent with RV volume overload. The right ventricle is moderately dilated, the left atrium is moderately dilated , the right atrium is severely dilated. Moderate pulmonary hypertension by Doppler, dilated IVC. Consistent with cor pulmonale Medical - DS: A/P - Patient/Caregiver Discharge Instructions Activity: increase activity as tolerated Diet: Renal Other Amb Orders: OT Discharge Order Location: Determined By Patient Physical Therapy at Discharge - General Location: Determined By Patient - Follow up Plan Follow up with: Nina Mello MD [Primary Care Provider] - Disposition: Xfer SNF Prognosis: Fair Rehab Potential: Fair I certify that the patient requires SNF services: Yes Overall status at discharge: patient is not back to baseline Medical - DS: Qual - VTE Deep Vein Thrombosis/Pulmonary Embolism Present on Admission: Yes
--- NOTE | 2017-12-26 13:09 | Nephrology Progress Note ---
Subjective Patient information: Note initiated : 12/26/17 at 1:08 pm Service Date, if different from initiated Date: [] Patient: Tana Frederick 77 y/o F admitted on 12/20/17 for Hypertension, SOB/ CHF, Respiratory Failure. Chief Complaint: Lot more awake. Objective - Vital Signs Vital signs: Vital Signs Temp Pulse Pulse Resp BP BP BP 12/26/17 11:15 98.3 F 95 H 20 120/74 12/26/17 11:13 98.3 F 98 H 20 131/68 12/26/17 08:00 98.3 F 20 120/74 12/26/17 07:29 100 H 20 12/26/17 07:27 100 H 20 12/26/17 04:00 97.3 F 98 H 22 131/68 12/26/17 00:00 97.8 F 91 H 22 133/82 12/25/17 20:00 98.6 F 90 22 132/80 12/25/17 19:31 90 20 12/25/17 16:00 98.8 F 93 H 20 117/62 12/25/17 15:59 90 18 12/25/17 13:12 97.8 F 91 H 131/60 Pulse Ox 12/26/17 11:15 99 12/26/17 11:13 99 12/26/17 08:00 99 12/26/17 07:29 100 12/26/17 07:27 12/26/17 04:00 96 12/26/17 00:00 98 12/25/17 20:00 95 12/25/17 19:31 96 12/25/17 16:00 96 12/25/17 15:59 12/25/17 13:12 Intake and Output 12/25/17 12/26/17 12/26/17 21:59 05:59 13:59 Intake Total 200 / 200 100 / 100 Output Total 675 / 675 350 / 350 Balance -475 / -475 -250 / -250 Intake: Oral 200 / 200 100 / 100 Output: Urine Catheter Amount 675 / 675 350 / 350 Other: Weight 194 lb Intake & Output: Intake & Output 12/25/17 12/26/17 12/26/17 21:59 05:59 13:59 Intake Total 200 / 200 100 / 100 Output Total 675 / 675 350 / 350 Balance -475 / -475 -250 / -250 Weight 194 lb Intake: Oral 200 / 200 100 / 100 Output: Urine Catheter Amount 675 / 675 350 / 350 - General Appearance General appearance: well-developed, well-nourished EENT: ATNC Neck: no JVD Respiratory: no kyphosis Cardiology: no murmurs Gastrointestinal: normoactive bowel sounds Integumentary: no rash Neurologic: no focal deficit - Lab 12/26/17 04:40 12/26/17 04:40 Most recent lab results Calcium 8.8 mg/dl (8.6-10.4) 12/26/17 04:40 Phosphorus 2.3 mg/dL (2.7-4.5) L 12/26/17 04:40 Magnesium 1.7 mg/dL (1.6-2.5) 12/26/17 04:40 Assessment and Plan (1) Chronic kidney disease (CKD), stage III (moderate) Status: Acute Comment: The labs are lot better post dialysis. The fluid status is better. She is being discharged today to SNF.
== END 2017-12-26 11:15 | DRG 291 ==
LOC: ED 15:48 → ICU 19:41 → MEDSUR 12-22 15:20 → ICU 12-23 13:46 → MEDSUR 12-25 13:54
PROVIDERS: ADMIT Internal Medicine; ATTEND Internal Medicine